=== PATIENT | male | born 1970 | race Caucasian/White ===

== ENCOUNTER 2016-08-26 05:50 | Inpatient (IN) ==
[2016-08-12 11:05] LABS: Basophils # 0.1 10*3/uL (0.0-0.2); Basophils % 0.7 % (0.0-0.8); Eosinophils # 0.6 10*3/uL (0.0-0.87); Eosinophils % 6.8 % (0.00-10.9); Hematocrit 41.9 VOL% (42.0-52.0); Hemoglobin 13.9 GM/DL (14.0-18.0); Immature Granulocytes % 0.9 %; Immature Granulocytes Absolute 0.07 #; Lymphocytes # 2.1 10*3/uL (1.4-4.0); Lymphocytes % 26.6 % (21.2-54.2); Mean Corpuscular HGB Conc 33.2 GM/DL (32-36); Mean Corpuscular Hemoglobin 27 PG (27-34); Mean Corpuscular Volume 80.7 FL (87-102); Mean Platelet Volume 8.4 FL (9.6-12.0); Monocytes # 0.5 10*3/uL (0.11-0.8); Monocytes % 6.5 % (1.7-12.7); Neutrophils # 4.7 10*3/uL (1.4-7.4); Neutrophils % 58.5 % (38.7-73.9); Platelet Count 400 T/CUMM (130-400); Red Blood Count 5.19 MC/CUMM (3.8-5.5); Red Cell Distribution Width 15.9 % (9.3-17.3)
--- NOTE | 2016-08-12 11:06 | EKG Report ---
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
[2016-08-12 11:11] LABS: Apearance,Urine CLOUDY (Clear); Bilirubin,Urine Negative (Negative); Blood, Urine Small mg/dL (Negative); Glucose,Urine (UA) Negative (Negative); Ketones,Urine Negative (Negative); Nitrite,Urine Negative (Negative); Protein,Urine Negative; RBC,Urine 22 /HPF (0-4); Sperm,Urine Many /HPF (Negative); Urine Color Yellow (Yellow); Urine Specific Gravity 1.009 (1.001-1.035); Urine Urobilinogen < 2.0 EU/DL (0.2-1.0); WBC,Urine 3 /HPF (0-6)
[2016-08-12 11:18] LABS: PT Patient Result 10.3 SECS
[2016-08-12 11:46] LABS: Albumin 4.2 G/DL (3.4-5.0); Bilirubin,Total 2.2 MG/DL (0.2-1.0); Calcium 10.3 MG/DL (8.5-10.1); Potassium 4.2 MMOL/L (3.5-5.1); Total Protein 8.2 G/DL (6.4-8.3)
--- NOTE | 2016-08-12 13:37 | XRay Report ---
XR chest 2V Date: 08/12/2016 10:44 AM History: Respiratory preoperative evaluation Comparison: 05/11/2016 Technique: PA and lateral chest Findings: The heart is normal in size. The lungs are overexpanded. Minimal atelectasis at the left lung base. Stable mediastinum and osseous structures. Prior cholecystectomy. Impression: COPD with minimal scarring. Minimal atelectasis at left lung base. PROCEDURE INTERPRETED AT [facility] DEPARTMENT OF RADIOLOGY Final Report Signed by: Dr. Reny Marcos
[2016-08-26] MEDS ORDERED: TRANEXAMIC ACID 1,000 MG/10 ML VIAL IV ONE (06:00)
[2016-08-26] MEDS ORDERED: DIAZEPAM 5 MG TABLET PO ONE (06:28)
[2016-08-26] MEDS ORDERED: FAMOTIDINE 20 MG TABLET PO ONE (06:28)
[2016-08-26] MEDS ORDERED: SODIUM CHLORIDE 0.9% 100 ML IV ONE (06:29)
[2016-08-26] MEDS ORDERED: VANCOMYCIN 1,000 MG VIAL ONE (06:29)
[2016-08-26] MEDS ORDERED: ceFAZolin 1,000 MG VIAL ONE (06:29)
[2016-08-26] MEDS ORDERED: LACTATED RINGERS 1,000 ML IV SCH (06:30)
[2016-08-26] MEDS ORDERED: methylPREDNISolone SOD SUC 125 MG/2 ML VIAL ONE (06:45)
[2016-08-26] MEDS ORDERED: BUPIVACAINE 0.5% 50 ML VIAL ONE (06:45)
[2016-08-26] MEDS ORDERED: MORPHINE 10 MG/1 ML VIAL ONE (06:45)
[2016-08-26] MEDS ORDERED: EPINEPHrine 1 MG/ML VIAL ONE (06:45)
[2016-08-26] MEDS ORDERED: VANCOMYCIN INJ 1,000 MG in SODIUM CHLORIDE 0.9% 250 ML IV ONE (07:00)
--- NOTE | 2016-08-26 07:09 | History and Physical Update ---
History and Physical Update - History and Physical H&P was reviewed, the patient examined and there: are no changes in the patients condition since last H&P was completed. - Dictation Physical: refer to scanned H&P
[2016-08-26] MEDS ORDERED: LIDOCAINE 2% 5 ML VIAL ONE (07:11)
[2016-08-26] MEDS ORDERED: ONDANSETRON 4 MG/2 ML VIAL IV PRN ×3 (07:31→09:45)
[2016-08-26] MEDS ORDERED: HYDROmorphone 2 MG/1 ML VIAL IV PRN ×2 (07:31→09:45)
[2016-08-26] MEDS ORDERED: MAGNESIUM HYDROXIDE SUSP 30 ML UDCUP PO PRN (09:18)
[2016-08-26] MEDS ORDERED: MORPHINE 2 MG/1 ML SYRINGE IV PRN (09:18)
[2016-08-26] MEDS ORDERED: diphenhydrAMINE CAP 25 MG CAPSULE PO PRN (09:18)
[2016-08-26] MEDS ORDERED: FLUTICASONE 50 MCG NASAL SPRAY 16 GM BOTTLE BOTH NARES PRN (09:18)
[2016-08-26] MEDS ORDERED: ZALEPLON 5 MG CAPSULE PO PRN (09:18)
[2016-08-26] MEDS: LACTATED RINGERS 1,000 ML IV SCH ×2 (09:30→10:04)
[2016-08-26] MEDS ORDERED: KETAMINE 500 MG/10 ML VIAL ONE (09:43)
[2016-08-26] MEDS ORDERED: SODIUM CHLORIDE 0.9% 250 ML IV ONE (09:43)
[2016-08-26] MEDS ORDERED: MIDAZOLAM 2 MG/2 ML VIAL ONE (09:43)
--- NOTE | 2016-08-26 09:56 | XRay Report ---
XR hip 1V LT Indication: Left hip pain. Comparison: None. Technique: AP and lateral images of the left hip were submitted. Findings: Findings compatible with recent left hip arthroplasty. No fractures of the proximal femur or left hemipelvis are present. Impression: 1. Findings compatible with recent left hip arthroplasty. 08/26/2016 9:53 AM PROCEDURE INTERPRETED AT [facility] DEPARTMENT OF RADIOLOGY Final Report Signed by: Dr. Greg Sorensen
[2016-08-26] MEDS: KETOROLAC 30 MG/1 ML VIAL IV SCH ×3 (10:03→21:52)
[2016-08-26] MEDS: ACETAMINOPHEN 500 MG TABLET PO SCH ×2 (14:59→21:00)
--- NOTE | 2016-08-26 17:19 | Orthopedic Progress Note ---
Assessment and Plan (1) Status post left hip replacement Status: Acute Assessment and plan: Routine antibiotics DVT prophylaxis Continue therapy tomorrow Possible discharge home tomorrow Current Visit: Yes Orthopedics - Subjective Interval history: Patient complains of some numbness in his buttock area. He is already ambulated in the hallway this afternoon with physical therapy. On exam his dressings clean and dry, Hemovac is in place. Sensation is intact to light touch throughout the left foot, he can dorsiflex and plantarflex the foot and toes. Exam - Constitutional Vitals: Period Temp Pulse Resp BP Sys/Echevarria Pulse Ox Last 24 Hr 97.1 F-98.1 F 83-101 14-20 92-116/54-76 97-100 Results - Labs CBC & BMP: 08/12/16 10:54 08/12/16 10:54
[2016-08-26] MEDS: busPIRone 15 MG TABLET PO SCH (21:00)
[2016-08-26] MEDS: DOCUSATE SODIUM 100 MG CAPSULE PO SCH (21:00)
[2016-08-26] MEDS: PANTOPRAZOLE 40 MG TABLET PO SCH (21:00)
[2016-08-26] MEDS: DEXTROSE 5% NACL 0.45% 1,000 ML IV SCH (21:02)
[2016-08-27] MEDS: DEXTROSE 5% NACL 0.45% 1,000 ML IV SCH ×2 (00:06→08:30)
[2016-08-27] MEDS: ACETAMINOPHEN 500 MG TABLET PO SCH ×2 (02:08→09:30)
[2016-08-27] MEDS: KETOROLAC 30 MG/1 ML VIAL IV SCH (04:14)
[2016-08-27] MEDS ORDERED: ENOXAPARIN 40 MG/0.4 ML SYRINGE SUBCUT SCH (06:00)
[2016-08-27 06:58] LABS: Basophils % 0.3 % (0.0-0.8); Eosinophils # 0.1 10*3/uL (0.0-0.87); Eosinophils % 0.9 % (0.00-10.9); Hematocrit 26.2 VOL% (42.0-52.0); Immature Granulocytes % 0.6 %; Immature Granulocytes Absolute 0.07 #; Lymphocytes # 1.7 10*3/uL (1.4-4.0); Lymphocytes % 13.8 % (21.2-54.2); Mean Corpuscular HGB Conc 34.4 GM/DL (32-36); Mean Corpuscular Hemoglobin 28 PG (27-34); Mean Corpuscular Volume 81.6 FL (87-102); Mean Platelet Volume 9.1 FL (9.6-12.0); Monocytes # 1.3 10*3/uL (0.11-0.8); Monocytes % 10.9 % (1.7-12.7); Neutrophils # 8.8 10*3/uL (1.4-7.4); Neutrophils % 73.5 % (38.7-73.9); Platelet Count 285 T/CUMM (130-400); Red Blood Count 3.21 MC/CUMM (3.8-5.5); Red Cell Distribution Width 15.9 % (9.3-17.3)
--- NOTE | 2016-08-27 07:07 | Discharge Summary ---
Hospital Course - Hospital Course Hospital Course: 46-year-old male admitted to hospital following left total hip arthroplasty. He tolerated the procedure well was transferred to the floor in stable condition postoperatively. He received routine antibiotics and thromboprophylaxis. He did very well with physical therapy and was discharged on postoperative day #1. At the time of discharge discharge his wound was clean dry and is neurovascularly intact. Diagnosis - Discharge Diagnosis (1) Status post left hip replacement Status: Acute Specialty Discharge - Follow Up or Referrals Follow up with: Ravinder Candelario MD [Physician] - (3-4 weeks) Discharge Plan - Discharge Data Disposition: Home Health Service Condition at Discharge: Stable Discharge Diet: advance to your usual diet Activity: ambulate only with your walker Hygiene: may shower Weight Bearing at Discharge: weight bear as tolerated Driving: not until seen by doctor Contact your physician if you experience:: fever over 101, Difficulty voiding, Redness or swelling, Nausea/Vomiting, Shortness of breath, Bleeding, pain uncontrolled by pain medications Wound / Dressing Care Instructions: keep silver island dressing in place until Wednesday, then change daily. OK to shower, no tub soaks. Eileen out 09/07/2016 - Discharge Medications New Aspirin EC Tab 325 mg PO DAILY #30 tablet HYDROcodone/ACETAMIN 7.5-325 [Vulcan 7.5-325] 1 - 2 tablet PO Q4H PRN #60 tablet PRN Reason: Pain Moderate (4-7) Acetaminophen Tab [Tylenol Tab] 650 mg PO Q6H PRN #0 tablet PRN Reason: Pain Mild (1-3) Continue busPIRone [Buspar] 15 mg PO BID Atomoxetine HCl [Strattera] 40 mg PO DAILY Mv, Min #36/Iron,Carbonyl/FA [Geritol Complete Tablet] 1 each PO DAILY Omeprazole [Prilosec] 20 mg PO BID Fluticasone 50 Mcg Nasal [place] [Flonase Nasal [place]] 2 spray BOTH NARES DAILY PRN PRN Reason: Congestion Triamterene/Hctz 37.5-25 Tab [Maxzide 37.5-25] 1 tablet PO DAILY - Follow Up or Referral Follow Up: Ravinder Candelario MD [Physician] - (3-4 weeks) - Forms/Instructions Additional Discharge Instructions: hip precautions Exam - Constitutional Vitals: Period Temp Pulse Resp BP Sys/Echevarria Pulse Ox Last 24 Hr 97.1 F-97.8 F 62-101 14-20 90-112/52-72 96-100 Discharge Results Labs on day of discharge: Labs from last 24 hours 08/27/16 08/26/16 06:26 06:09 WBC 12.0 RBC 3.21 L Hgb 9.0 L Hct 26.2 L MCV 81.6 L MCH 28 MCHC 34.4 RDW 15.9 Plt Count 285 MPV 9.1 L Neut % (Auto) 73.5 Lymph % (Auto) 13.8 L [place] % (Auto) 10.9 Eos % (Auto) 0.9 Baso % (Auto) 0.3 Neut # (Auto) 8.8 H Lymph # (Auto) 1.7 [place] # (Auto) 1.3 H Eos # (Auto) 0.1 Baso # (Auto) 0.0 Immature Gran % 0.6 Nucleated RBC % 0.0 Immature Gran # 0.07 Nucleated RBCs # 0.00 Blood Type B POSITIVE Antibody Screen Negative DS: Provider Date of admission: 08/26/16 05:50 Primary care physician: Yamil Patel DO Attending physician on admission: Ravinder Candelario MD Consults: 08/26/16 09:18 Consult to Case Mgmt/Social Srvs [CONS] Routine Reason for Case Mgmt/Social Srvs: Rehab Home Health Equipment Consult Comment: Bedside Commode, CPM, Walker Consult to Occupational Therapy [CONS] Routine Reason for Occupational Therapy: Evaluate and Treat Start Therapy: Today Consult Comment: ADL's Consult to Physical Therapy [CONS] Routine Reason for Physical Therapy: Evaluate and Treat Gait Training Start Therapy: Today Consult Comment: wbat 08/26/16 10:11 Consult to Pharmacy [CONS] Routine Reason for Pharmacy Consult: Adjust Meds Renal Funct 08/26/16 11:16 Consult to Pastoral Services [CONS] Routine Comment: Pastoral Screen: Request Suction Operator Visit Pastoral Screen Source of Request: Patient Discharging clinician: Ravinder Candelario MD
[2016-08-27] MEDS ORDERED: TRIAMTERENE/HCTZ 37.5-25 MG TABLET PO SCH (09:00)
[2016-08-27] MEDS ORDERED: MULTIVITAMIN (CENTRUM) TABLET PO SCH (09:00)
[2016-08-27] MEDS ORDERED: STRATTERA PO SCH (09:00)
[2016-08-27] MEDS ORDERED: ACETAMINOPHEN 325 MG TABLET PO PRN (09:19)
[2016-08-27] MEDS: busPIRone 15 MG TABLET PO SCH (09:30)
[2016-08-27] MEDS: DOCUSATE SODIUM 100 MG CAPSULE PO SCH (09:30)
[2016-08-27] MEDS: PANTOPRAZOLE 40 MG TABLET PO SCH (09:30)
--- NOTE | 2016-08-27 10:49 | Pathology Report from [facility] ---
ACCESSION # : [id number] PATIENT NAME : Lita Singh ORDERING DR : Ravinder Candelario MD CLINICAL HX: Left hip osteoarthritis POST-OP DX: Same SPECIMEN INFO: Left hip bone and tissue GROSS DESCRIPTION: The specimen is received in formalin labeled with the patient 's name Lita Singh is a femoral head measuring 5.3 x 5.2 x 5.7 cm. The articular surfaces are degenerative with no bony eburnation seen. The fracture is smooth with some softening appreciated. Received in the specimen container separately are fragments of bone and soft tissue measuring 11.0 x 4.5 cm. Worm Picker sections are submitted in one cassette following decalcification. DIAGNOSIS FOR LITA SINGH: LEFT HIP BONE & TISSUE, TOTAL REPLACEMENT: Osteoarthritis. SERVICE DATE: 08/26/2016 REPORT DATE: 08/27/2016 PATHOLOGIST: Rafa Hardin M.D. MTDLos
[2016-08-27 17:16] VITALS: BP 110/62
== END 2016-08-27 11:15 | disposition home health service (06) | DRG 470 ==
LOC: N.SDSINP 05:50 → N.3E 09:55
PROVIDERS: ADMIT Orthopaedic Surgery; ATTEND Orthopaedic Surgery

== ENCOUNTER 2016-11-03 19:50 | Inpatient (IN) ==
[2016-11-03] MEDS ORDERED: LACTATED RINGERS 2,000 ML IV ONE (20:19)
[2016-11-03] MEDS ORDERED: HYDROmorphone 2 MG/1 ML VIAL IV STA (20:19)
[2016-11-03] MEDS ORDERED: ONDANSETRON 4 MG/2 ML VIAL IV STA (20:19)
[2016-11-03] MEDS ORDERED: ONDANSETRON 4 MG/2 ML VIAL ONE (20:30)
[2016-11-03] MEDS ORDERED: HYDROmorphone 2 MG/1 ML VIAL ONE (20:31)
[2016-11-03 20:33] LABS: Basophils # 0.1 10*3/uL (0.0-0.2); Basophils % 0.4 % (0.0-0.8); Eosinophils # 0.4 10*3/uL (0.0-0.87); Eosinophils % 2.7 % (0.00-10.9); Hematocrit 38.5 VOL% (42.0-52.0); Hemoglobin 13.6 GM/DL (14.0-18.0); Immature Granulocytes % 0.4 %; Immature Granulocytes Absolute 0.06 #; Lymphocytes # 2.4 10*3/uL (1.4-4.0); Lymphocytes % 14.9 % (21.2-54.2); Mean Corpuscular HGB Conc 35.3 GM/DL (32-36); Mean Corpuscular Hemoglobin 28 PG (27-34); Mean Corpuscular Volume 78.4 FL (87-102); Mean Platelet Volume 8.7 FL (9.6-12.0); Monocytes # 1.1 10*3/uL (0.11-0.8); Monocytes % 7.1 % (1.7-12.7); Neutrophils # 11.8 10*3/uL (1.4-7.4); Neutrophils % 74.5 % (38.7-73.9); Platelet Count 414 T/CUMM (130-400); Red Blood Count 4.91 MC/CUMM (3.8-5.5); Red Cell Distribution Width 14.5 % (9.3-17.3); White Blood Count 15.8 T/CUMM (4-12)
[2016-11-03 20:53] LABS: Albumin 4.2 G/DL (3.4-5.0); Bilirubin,Total 2.5 MG/DL (0.2-1.0); Calcium 10.3 MG/DL (8.5-10.1); Osmolality,Calculated 268.2 MOS/KG (273-304); Total Protein 7.6 G/DL (6.4-8.3)
[2016-11-03 21:34] LABS: Lactic Acid 1.4 MMOL/L (0.4-2.0)
--- NOTE | 2016-11-03 23:01 | CT Report ---
CT abdomen pelvis w con Indication: Bowel obstruction. CT ABDOMEN AND PELVIS WITH CONTRAST DLP: 537 mGy*cm. One or more of the following dose reduction techniques was used: Automated exposure control, adjustment of the mA and/or kV according the patient size, or use of iterative reconstruction techniques. Comparison: 01/19/2060 Technique: Axial CT images of the abdomen and pelvis were obtained with IV contrast; Omnipaque 350, 100 cc. Oral contrast was administered. Abdomen: Stomach contains oral contrast and is distended. Small bowel dilatation is present throughout the study throughout. I see no: Except for a small rectal remnant which has previously had an anastomosis. Small amount of ascites is in the right lower quadrant. Several omental and/or mesenteric implants are present, similar in appearance to prior examination with wispy areas of fat stranding surrounding unaffected fat lobules, largest 26 mm anterior mid abdomen at the approximate level of the umbilicus, previously more to the left measuring 29 mm. Heart is minimally enlarged. Markedly coarsened interstitial markings of the lung bases noted, without focal infiltrate. Liver, spleen, pancreas, adrenal glands and kidneys are unremarkable. No aneurysmal change of the aorta. Pelvis: Right ZURDO is again noted. Patient now has a left ZURDO. Beam hardening artifact in the pelvis is severe and the bladder and prostate are almost completely obscured. The right lower quadrant ileostomy has been taken down. Transition point for the bowel obstruction is present within the right pelvis. Prior rectal anastomosis noted. Trace amount of free fluid in pelvis noted. No new bone lesions. Impression: 1. Bowel obstruction with a transition point in the right pelvis. The transition point appears to be related to a small bowel to rectal anastomosis following takedown of prior right lower quadrant ileostomy. Status post total colectomy. 2. Scattered mesenteric and omental implants are present, similar to the previous examination, continuing to demonstrate a very nonspecific wispy quality of fat stranding encasing normal-appearing fat, as opposed to actual soft tissue masses. Is there history of neoplasm? 3. New left ZURDO. Old right ZURDO. 4. Significantly coarsened interstitial markings of the lung bases. PROCEDURE INTERPRETED AT [facility] DEPARTMENT OF RADIOLOGY Final Report Signed by: Saurabh Mckeon M.D.
[2016-11-03] MEDS ORDERED: metroNIDAZOLE INJ 500 MG in PREMIX 1 EACH IV STA (23:15)
[2016-11-03] MEDS ORDERED: CIPROFLOXACIN INJ 400 MG in PREMIX 1 EACH IV STA (23:15)
--- NOTE | 2016-11-03 23:18 | Emergency Department Note ---
Mary Paige Hilary, am scribing for, and in the presence of, Santo Campos MD 20:20 . Andres Paige Hans, MD, personally performed the services described in this documentation, ascribed by Buffy Hernandez in my presence, and it is both accurate and complete 318 . Arrival - Arrival Chief Complaint: Abdominal / Flank Pain Stated Complaint: STOMACH PAIN/VOMITING ED Nursing Triage Note: C/O ABDOMINAL PAIN WITH ONSET TWO DAYS AGO. 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 PT STATES HE HAD A COLON RESECTION IN MAY 2016. Mode of Arrival: Ambulatory Limitations: No Limitations Source: Patient, RN Notes Reviewed Time Seen by Provider: 11/03/16 20:11 - History of Present Illness HPI Narrative: Pt is a 46 y/o male presenting to the ED with c/o abdominal pain which onset 2 days ago. Pt confirms abdominal pain, diarrhea, nausea and vomiting but denies blood in stool or fever. Pt has a PMHx of bowel obstruction, ulcerative colitis , Tanner syndrome, GERD, Colon resection MAY 2016. No other complaints or problems stated in the ED. Onset (ago): day(s) Allergies/Adverse Reactions: Allergies Allergy/AdvReac Type Severity Reaction Status Date / Time aspirin AdvReac Gastrointestinal Verified 08/26/16 06:25 Upset Home Medications: Home Medications Medication Instructions Recorded Confirmed Type busPIRone [Buspar] 15 mg PO BID 01/18/15 11/03/16 History Atomoxetine HCl [Strattera] 10 mg PO DAILY 07/04/15 11/03/16 History Omeprazole [Prilosec] 20 mg PO BID 02/27/16 11/03/16 History Triamterene/Hctz 37.5-25 Tab 1 tablet PO DAILY 08/12/16 11/03/16 History [Maxzide 37.5-25] Review of System - Review of System 12 point system: reviewed and no additional remarkable complaints except as stated - Review of System Constitutional: Absent: fever Gastrointestinal: Present: abdominal pain, nausea, vomiting, diarrhea Medical,Surgical,& Family Hx - Medical History Cardio: No history of: Aneurysm, Cardiac Dysrhythmia, Cerebrovascular Disease, Congenital Heart Disease, CHF, CAD, Hypertension, DE, Pacemaker, PVD, Valvular Heart Disease, Cardiovascular Problems Psychological: History of: Anxiety Disorders, ADHD No history of: Behavior Problems, Bipolar Disorder, Depression, Previous Suicide Attempt, Psychiatric/Substance Abuse Tx, Schizophrenia, Violent Behavior , Psychiatric Problems Neurology: No history of: Brain Aneurysm, Cerebral Hemorrhage, Cerebrovascular Accident , Cerebral Palsy, Dementia, Migraine, Multiple Sclerosis, Parkinson's Disease, Peripheral Neuropathy, Seizures, TIA, Vertigo, Neurologocal Cancer HEENT: History of: Ear Problem ([place]), Eye Problem (wears glasses), Dental Problems (upper plate), HEENT Problems (mucus removed) No history of: Glaucoma, Oral Cancer Endocrine: No history of: Adrenal Disease, Diabetes Mellitus (IDDM), Diabetes Mellitus ( NIDDM), Dyslipidemia, Thyroid Disorder, Endocrine Cancer, Endocrine Problems Rheumatology: History of;: Gout No history of;: Fibromyalgia, Myasthenia Gravis, Psoriasis, Rheumatoid Arthritis, Sjogrens, Systemic Lupus Erythematosus, Rheumatological Problems Respiratory: No history of: Asthma, Bronchitis, COPD, Intubation, Obstructive Sleep Apnea , Pulmonary Embolism, Pulmonary Hypertension, Pneumonia, Lung Cancer Comment Only: Respiratory Problems (FLU VAC- YES; PNEU VAC- YES.) Renal: No history of: Renal (Kidney) Cancer, Dialysis, Renal Failure, Renal Problems Genitourinary: No history of: Bladder Problem, Kidney Stones, Prostate Problems, Recurring Urinary Tract Infections, Genitourinary Cancer, Problems Gastrointestinal: History of: Bowel Obstruction (x5), GERD, Ulcerative Colitis ( past hisory), GI Problems (Tanner Syndrome) No history of: Clostridium Difficile, Crohn's Disease, Diverticulitis/ Diverticulosis, Esophageal Varices, Gastrointestinal Bleed, Hemorrhoids, Hematochezia, Hepatitis, Liver Problems, Pancreatitis, Polyps, Gastrointestinal Cancer Musculoskeletal: No history of: Amputation, Back/Neck Problems, Degenerative Disk Disease, Herniated Disk, Osteoporosis, Musculoskeletal Cancer, Musculoskeletal Problems Hematology: No history of: Anemia, Blood Transfusion Reaction, Bleeding Problems, Clotting Problems, Sickle Cell Disease, Hematologic Cancer, Blood Disorders Other: No history of: Anesthesia Reactions, Anaphylaxis, Cancer, Eczema, HIV, Malignant Hyperthermia, MRSA, Vancomycin-Resistant Enterococci, Skin Problems, Miscellaneous Medical Problems - Surgical History Cardiac Surgeries: Patient Denies: Femoral-Popliteal Bypass Graft, Cardiac Catheterization, Carotid Endarterectomy, Internal Defibrillator, Vascular Access Devices Thoracic Surgeries: Patient denies;: Kidney (Renal Surgery), Lithotripsy, Nephrectomy, Organ Transplant, Lobectomy Neurologic Surgeries: Patient denies: Brain Aneurysm, Cerebral Hemorrhage, Neurologic Surgery HEENT Surgeries: Surgical HX of: Tonsilectomy & Adenoidectomy (tonsil) Patient denies: Carotid Endarterectomy, Eye Surgery, Thyroid Surgery Abdominal Surgeries: Surgical HX of: Abdominal Surgery (adhesion removal this month, rt ostomy. colon surgery to removed obstruct.), Appendectomy, Cholecystectomy, Colonoscopy, EGD, Hernia Repair (umbilical hernia repair. OSTOMY REVERSAL 05/2016.) Patient denies: Gastric Bypass Surgery, Splenectomy Reproductive Surgeries: Patient denies;: Cystoscopy, Genitourinary Surgery, Prostate Surgery Orthopedic Surgeries: Surgical HX of;: Implanted Devices (ostomy rt abdominal wall), Total Hip Replacement (Right 12/20) Patient denies;: Orthopedic Surgery, Spinal Surgery, Total Knee Replacement - Family History Family History: Reports;: Family Anesthesia Reaction (mother nausea), Family Cancer (paternal grandmother), Family Diabetes (father), Family Heart Disease ( father), Family Stroke (mother tia father) Denies;: Family Hypertension, Family Psychiatric Problems - Social History Smoking Status: Never smoker Frequency of Alcohol Use: None Type of Drug Use: None Exam Vital Signs: Vital Signs Temperature 98.8 F 11/03/16 21:54 Pulse Rate 109 H 11/03/16 21:54 Respiratory Rate 20 11/03/16 21:54 Blood Pressure 117/88 11/03/16 21:54 O2 Sat by Pulse Oximetry 100 11/03/16 21:53 - General General appearance: alert, in no apparent distress - Head Head exam: Present: atraumatic, normocephalic - Eye Eye exam: Present: normal appearance, PERRL, EOMI - ENT ENT exam: Present: mucous membranes moist, TM's normal bilaterally. Absent: mucous membranes dry - Neck Neck exam: Present: full ROM, trachea midline. Absent: tenderness - Chest Chest inspection: Present: symmetric chest wall rise. Absent: tenderness - Respiratory Respiratory exam: Present: normal lung sounds bilaterally. Absent: respiratory distress - Cardiovascular Cardiovascular exam: Present: regular rate, normal rhythm, normal heart sounds. Absent: murmur, rubs, gallop - Abdominal Exam Abdominal exam: Present: soft, distention (minimally distented), hypoactive bowel sounds. Absent: tenderness - Extremities Exam Extremities exam: Present: full ROM. Absent: tenderness, calf tenderness - Back Exam Back exam: Present: full ROM. Absent: tenderness - Neurological Exam Neurological exam: Present: alert, oriented X3, CN II-XII intact. Absent: motor sensory deficit - Psychiatric Psychiatric exam: Present: normal affect, normal mood - Skin Skin exam: Present: warm, dry, intact, normal color. Absent: rash Course Course Narrative: This patient was evaluated with lab work as well as CT scan of abdomen and pelvis with p.o. and IV contrast. He appeared to have a bowel obstruction with transition point in the right pelvis near his J-pouch. He did not require any emergent surgical attention and his admission was discussed with Dr. Pride who is the surgeon customer operations intern. The patient will be admitted to the surgical service for NG tube decompression and IV fluids as well as IV antibiotics. His bilirubin will be repeated in the morning. Results - Labs CBC & BMP: 11/03/16 20:22 11/03/16 20:22 Lab Results: I have reviewed the patients labs Labs: Laboratory Tests 11/03/16 20:22 WBC 15.8 H RBC 4.91 Hgb 13.6 L Hct 38.5 L MCV 78.4 L Plt Count 414 H MPV 8.7 L Neut % (Auto) 74.5 H Lymph % (Auto) 14.9 L Neut # (Auto) 11.8 H Holt # (Auto) 1.1 H Laboratory Tests 11/03/16 20:22 Sodium 134 L Potassium 3.0 L Chloride 94 L Calculated Osmolality 268.2 L Calcium 10.3 H Total Bilirubin 2.50 H Alkaline Phosphatase 127 H Disposition Clinical Impression: Small bowel obstruction, Small bowel obstruction due to adhesions Case discussed with: patient, patient's family Disposition: Still a Patient Condition: Stable Time of Disposition: 23:18
[2016-11-03] MEDS ORDERED: metroNIDAZOLE 500 MG/100 ML PREMIX IV ONE (23:20)
[2016-11-04] MEDS ORDERED: PROMETHAZINE 25 MG/1 ML VIAL IM PRN (00:50)
[2016-11-04] MEDS ORDERED: ONDANSETRON 4 MG/2 ML VIAL IV PRN (00:50)
[2016-11-04] MEDS ORDERED: ACETAMINOPHEN 325 MG TABLET PO PRN (00:50)
[2016-11-04] MEDS ORDERED: HYDROmorphone 2 MG/1 ML VIAL IV PRN (00:50)
[2016-11-04] MEDS: LACTATED RINGERS 1,000 ML IV SCH ×2 (01:01→11:38)
[2016-11-04] MEDS: CIPROFLOXACIN INJ 400 MG in PREMIX 1 EACH IV SCH ×2 (01:03→12:23)
[2016-11-04] MEDS: metroNIDAZOLE INJ 500 MG in PREMIX 1 EACH IV SCH ×3 (01:07→16:26)
[2016-11-04] MEDS: POTASSIUM CHLORIDE RIDER 10 MEQ in PREMIX 1 EACH IV SCH ×3 (02:19→06:43)
--- NOTE | 2016-11-04 06:49 | XRay Report ---
XR abdomen 2V Indication: Abdominal pain. Comparison: Abdominal series 05/12/2016. CT abdomen and pelvis 11/03/2016. Technique: Flat and erect images of the abdomen were performed. Findings: Multiple small bowel loops are distended and contain multiple air-fluid levels. NG tube has been placed since comparison study which terminates within the gastric fundus. Surgical absence of the gallbladder is demonstrated. Impression: 1. Findings compatible with small bowel obstruction. 11/04/2016 6:46 AM PROCEDURE INTERPRETED AT [facility] DEPARTMENT OF RADIOLOGY Final Report Signed by: Dr. Greg Sorensen
--- NOTE | 2016-11-04 08:55 | General Surg History&Physical ---
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 We will continue with conservative management as the patient is currently reporting clinical improvement in his symptoms. Continue with bowel rest, NG tube, IV fluids, and monitoring his bowel function. Abdominal x-ray this morning revealed persistent evidence of small bowel obstruction. Patient also with elevated white count -possible enteritis component, we will continue Cipro and Flagyl. Repeat labs in the morning. Current Visit: Yes (2) Hypokalemia Status: Acute Assessment and plan: Patient is receiving KCl infusion. We will recheck his labs today. Current Visit: No (3) Anxiety Status: Acute Assessment and plan: Currently stable. Hold home meds while n.p.o. Current Visit: Yes (4) Hypertension Status: Acute Assessment and plan: Currently normotensive. Hold on meds while n.p.o. Current Visit: Yes (5) GERD (gastroesophageal reflux disease) Status: Acute Assessment and plan: PPI daily IV Current Visit: Yes (6) Prophylactic measure Status: Acute Assessment and plan: 1. DVT prophylaxis: SCDs and Lovenox 2. GI prophylaxis: PPI IV while n.p.o. then transition to oral when tolerating Current Visit: Yes History of Present Illness Chief complaint: Abd pain History of present illness: Mr. Singh is a 46 year old male with past medical history of ulcerative colitis status post colectomy and recurrent small bowel obstructions most of which were treated conservatively with operative intervention required in March 2015 who presented to the emergency department with progressive abdominal pain. He reports that he started having pain approximately 2 days ago which has worsened. He localizes the pain primarily to the lower abdomen associated with nausea but no vomiting. He did have a loose bowel movement yesterday approximately 5 PM with some relief of his pain, but his symptoms did persist. He has had no fever, chills, rigors. Home Medications Medication Instructions Recorded Confirmed Type busPIRone [Buspar] 15 mg PO BID 01/18/15 11/03/16 History Atomoxetine HCl [Strattera] 10 mg PO DAILY 07/04/15 11/03/16 History Omeprazole [Prilosec] 20 mg PO BID 02/27/16 11/03/16 History Triamterene/Hctz 37.5-25 Tab 1 tablet PO DAILY 08/12/16 11/03/16 History [Maxzide 37.5-25] Allergies Allergy/AdvReac Type Severity Reaction Status Date / Time aspirin AdvReac Gastrointestinal Verified 08/26/16 06:25 Upset Medical,Surgical,& Family Hx - Medical History Psychological: History of: Anxiety Disorders, ADHD HEENT: History of: Ear Problem (ione), Eye Problem (wears glasses), Dental Problems (upper plate) Rheumatology: History of;: Gout Respiratory: Comment Only: Respiratory Problems (FLU VAC- YES; PNEU VAC- YES.) Gastrointestinal: History of: Bowel Obstruction (recurrent; treated coservatively except 03/2015), GERD, Ulcerative Colitis (s/p colectomy total), GI Problems ([place] Syndrome) Other: History of: MRSA - Surgical History HEENT Surgeries: Surgical HX of: Tonsilectomy & Adenoidectomy (tonsil) Abdominal Surgeries: Surgical HX of: Abdominal Surgery (enterocolysis, rt ostomy. total colectomy), Appendectomy, Cholecystectomy, Colonoscopy, EGD, Hernia Repair (umbilical hernia repair. OSTOMY REVERSAL 05/2016.) Orthopedic Surgeries: Surgical HX of;: Total Hip Replacement (bilateral) Additional Surgical History: MRSA septicemia - Family History Family History: Reports;: Family Anesthesia Reaction (mother nausea), Family Cancer (paternal grandmother), Family Diabetes (father), Family Heart Disease ( father), Family Stroke (mother and father) Denies;: Family Hypertension, Family Psychiatric Problems - Social History Smoking Status: Never smoker Frequency of Alcohol Use: None Type of Drug Use: None Functional capacity: independent ambulation Exam - Constitutional Vitals: Period Temp Pulse Resp BP Sys/Echevarria Pulse Ox Last 24 Hr 97.7 F-98.8 F 66-109 17- 100-117/70-88 94-100 General appearance: no acute distress - Head Head exam: Present: normal inspection, normocephalic - ENT ENT exam: Present: other (NGT in place - bilious output) - Neck Neck exam: Present: trachea midline - Respiratory Respiratory exam: Present: clear to auscultation bilaterally - Cardiovascular Cardiovascular exam: Present: RRR - GI/Abdominal GI/Abdominal exam: Present: distended (slightly), tenderness (mild lower abd tenderness), other (Bowel sounds absent). Absent: guarding, Mac's sign, rebound - Extremities Exam Extremities exam: Absent: calf tenderness, edema - Neurological Exam Neurological exam: Present: alert, oriented X3 Speech: Present: normal - Skin Skin exam: Present: normal color, warm - Constitutional Constitutional: Absent: chills, fever(s), night sweats - EENT Nose, mouth and throat: Absent: dysphagia - Cardiovascular Cardiovascular: Absent: chest pain at rest, chest pain with activity, dyspnea on exertion, orthopnea, palpitations - Respiratory Respiratory: Absent: cough, wheezing - Gastrointestinal Gastrointestinal: Present: as per HPI - Genitourinary Genitourinary: Absent: dysuria, flank pain Hematologic/Lymphatic: Absent: easy bleeding, easy bruising Results - Labs CBC & BMP: 11/03/16 20:22 11/03/16 20:22 - Diagnostic Findings Procedure: Abdominal Flat/Erect: image reviewed by me, report reviewed by me, CT Abdomen and Pelvis: image reviewed by me, report reviewed by me
[2016-11-04 10:02] LABS: Basophils % 0.3 % (0.0-0.8); Eosinophils # 0.2 10*3/uL (0.0-0.87); Hematocrit 38.6 VOL% (42.0-52.0); Hemoglobin 13.8 GM/DL (14.0-18.0); Immature Granulocytes % 0.6 %; Immature Granulocytes Absolute 0.06 #; Lymphocytes # 1.3 10*3/uL (1.4-4.0); Lymphocytes % 12.1 % (21.2-54.2); Mean Corpuscular HGB Conc 35.8 GM/DL (32-36); Mean Corpuscular Hemoglobin 28 PG (27-34); Mean Corpuscular Volume 78.6 FL (87-102); Mean Platelet Volume 8.7 FL (9.6-12.0); Monocytes # 0.8 10*3/uL (0.11-0.8); Monocytes % 7.7 % (1.7-12.7); Neutrophils # 8.3 10*3/uL (1.4-7.4); Neutrophils % 77.3 % (38.7-73.9); Platelet Count 364 T/CUMM (130-400); Red Blood Count 4.91 MC/CUMM (3.8-5.5); Red Cell Distribution Width 14.6 % (9.3-17.3); White Blood Count 10.7 T/CUMM (4-12)
[2016-11-04 10:25] LABS: Calcium 10.1 MG/DL (8.5-10.1); Magnesium 1.7 MG/DL (1.8-2.4); Osmolality,Calculated 267.2 MOS/KG (273-304); Potassium 3.2 MMOL/L (3.5-5.1)
[2016-11-04] MEDS: PANTOPRAZOLE 40 MG VIAL IV SCH (11:38)
[2016-11-04] MEDS: POTASSIUM CHLORIDE RIDER 10 MEQ in PREMIX 1 EACH IV PRN ×2 (15:15→20:00)
[2016-11-04] MEDS: DEXT 5% NACL 0.45% KCL 20 MEQ 20 MEQ/1,000 ML BAG IV SCH (15:15)
[2016-11-04] MEDS: ENOXAPARIN 40 MG/0.4 ML SYRINGE SUBCUT SCH (17:41)
[2016-11-05] MEDS: metroNIDAZOLE INJ 500 MG in PREMIX 1 EACH IV SCH ×3 (00:01→16:20)
[2016-11-05] MEDS: POTASSIUM CHLORIDE RIDER 10 MEQ in PREMIX 1 EACH IV PRN ×2 (00:02→04:06)
[2016-11-05] MEDS: CIPROFLOXACIN INJ 400 MG in PREMIX 1 EACH IV SCH ×2 (01:01→12:18)
[2016-11-05] MEDS: DEXT 5% NACL 0.45% KCL 20 MEQ 20 MEQ/1,000 ML BAG IV SCH ×4 (02:30→22:15)
[2016-11-05 05:00] LABS: Basophils % 0.4 % (0.0-0.8); Eosinophils # 0.2 10*3/uL (0.0-0.87); Hematocrit 36.8 VOL% (42.0-52.0); Hemoglobin 13.1 GM/DL (14.0-18.0); Immature Granulocytes % 0.4 %; Immature Granulocytes Absolute 0.03 #; Lymphocytes # 1.3 10*3/uL (1.4-4.0); Lymphocytes % 16.6 % (21.2-54.2); Mean Corpuscular HGB Conc 35.6 GM/DL (32-36); Mean Corpuscular Hemoglobin 28 PG (27-34); Mean Corpuscular Volume 79.1 FL (87-102); Mean Platelet Volume 8.8 FL (9.6-12.0); Monocytes # 0.7 10*3/uL (0.11-0.8); Monocytes % 9.6 % (1.7-12.7); Neutrophils # 5.4 10*3/uL (1.4-7.4); Platelet Count 341 T/CUMM (130-400); Red Blood Count 4.65 MC/CUMM (3.8-5.5); Red Cell Distribution Width 14.6 % (9.3-17.3); White Blood Count 7.7 T/CUMM (4-12)
[2016-11-05 05:26] LABS: Albumin 3.2 G/DL (3.4-5.0); Bilirubin,Total 2.7 MG/DL (0.2-1.0); Osmolality,Calculated 269.1 MOS/KG (273-304); Potassium 3.4 MMOL/L (3.5-5.1)
[2016-11-05] MEDS: PANTOPRAZOLE 40 MG VIAL IV SCH (09:29)
--- NOTE | 2016-11-05 10:51 | General Surgery Progress Note ---
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 We will continue with conservative management as the patient is currently reporting clinical improvement in his symptoms. Continue with bowel rest, NG tube, IV fluids, and monitoring his bowel function - pt with 3 loose BM overnight. Continue Cipro and Flagyl - leukocytosis resolved. Repeat labs in the morning. Current Visit: Yes (2) Hypokalemia Status: Acute Assessment and plan: Improved. K+ protocol in place. Current Visit: No (3) Anxiety Status: Acute Assessment and plan: Currently stable. Hold home meds while n.p.o. Current Visit: Yes (4) Hypertension Status: Acute Assessment and plan: Currently normotensive. Hold on meds while n.p.o. Current Visit: Yes (5) GERD (gastroesophageal reflux disease) Status: Acute Assessment and plan: PPI daily IV Current Visit: Yes (6) Prophylactic measure Status: Acute Assessment and plan: 1. DVT prophylaxis: SCDs and Lovenox 2. GI prophylaxis: PPI IV while n.p.o. then transition to oral when tolerating Current Visit: Yes Subjective Patient reports: Present: feels better, pain is less, bowel movement, afebrile ( NGT in place. Pt family member reports at one point NGT cannister full - 300cc recorded yesterday adn 300cc overnight. By report, NGT output is less - remains bilious) Exam - Constitutional Vitals: Period Temp Pulse Resp BP Sys/Echevarria Pulse Ox Last 24 Hr 96.4 F-98.8 F 73-97 16-20 99-117/62-72 90-99 General appearance: no acute distress - Head Head exam: Present: normal inspection - Eye Eye exam: Absent: conjunctival injection, scleral icterus - ENT ENT exam: Present: other (NGT in place - bilious output) - Neck Neck exam: Present: trachea midline - Respiratory Respiratory exam: Present: clear to auscultation bilaterally - Cardiovascular Cardiovascular exam: Present: RRR - GI/Abdominal GI/Abdominal exam: Present: tenderness (minimal RLQ tenderness), soft. Absent: distended - Extremities Exam Extremities exam: Absent: calf tenderness, edema - Neurological Exam Neurological exam: Present: alert, oriented X3 - Skin Skin exam: Present: warm. Absent: rash Results - Labs CBC & BMP: 11/05/16 04:32 11/05/16 04:32 Labs: Bili slighlty increased 2.7
[2016-11-05] MEDS: ENOXAPARIN 40 MG/0.4 ML SYRINGE SUBCUT SCH (16:20)
[2016-11-06] MEDS: metroNIDAZOLE INJ 500 MG in PREMIX 1 EACH IV SCH ×3 (01:20→15:35)
[2016-11-06] MEDS: CIPROFLOXACIN INJ 400 MG in PREMIX 1 EACH IV SCH ×2 (02:25→14:16)
[2016-11-06 06:25] LABS: Basophils % 0.6 % (0.0-0.8); Eosinophils # 0.3 10*3/uL (0.0-0.87); Eosinophils % 5.9 % (0.00-10.9); Hematocrit 33.4 VOL% (42.0-52.0); Hemoglobin 11.6 GM/DL (14.0-18.0); Immature Granulocytes % 0.2 %; Immature Granulocytes Absolute 0.01 #; Lymphocytes # 1.3 10*3/uL (1.4-4.0); Lymphocytes % 25.4 % (21.2-54.2); Mean Corpuscular HGB Conc 34.7 GM/DL (32-36); Mean Corpuscular Hemoglobin 28 PG (27-34); Mean Corpuscular Volume 80.3 FL (87-102); Mean Platelet Volume 8.7 FL (9.6-12.0); Monocytes # 0.8 10*3/uL (0.11-0.8); Monocytes % 14.6 % (1.7-12.7); Neutrophils # 2.8 10*3/uL (1.4-7.4); Neutrophils % 53.3 % (38.7-73.9); Platelet Count 279 T/CUMM (130-400); Red Blood Count 4.16 MC/CUMM (3.8-5.5); Red Cell Distribution Width 14.6 % (9.3-17.3); White Blood Count 5.3 T/CUMM (4-12)
[2016-11-06 06:53] LABS: Albumin 3.1 G/DL (3.4-5.0); Bilirubin,Total 1.9 MG/DL (0.2-1.0); Calcium 8.8 MG/DL (8.5-10.1); Osmolality,Calculated 278.4 MOS/KG (273-304); Potassium 3.2 MMOL/L (3.5-5.1); Total Protein 5.7 G/DL (6.4-8.3)
[2016-11-06] MEDS: DEXT 5% NACL 0.45% KCL 20 MEQ 20 MEQ/1,000 ML BAG IV SCH ×4 (06:57→21:58)
[2016-11-06] MEDS: PANTOPRAZOLE 40 MG VIAL IV SCH (08:50)
[2016-11-06] MEDS: POTASSIUM CHLORIDE RIDER 10 MEQ in PREMIX 1 EACH IV PRN ×4 (09:49→23:53)
--- NOTE | 2016-11-06 12:24 | General Surgery Progress Note ---
Assessment and Plan (1) Small bowel obstruction due to adhesions Status: Acute Assessment and plan: Impression: Small bowel obstruction Plan: Clinically the patient appears much improved despite the liter output from his NG tube. He has good bowel sounds and his abdomen is benign. We will replace his potassium. We will clamp his NG tube today to see if he develops any nausea or vomiting. If not then he could probably begin advancing diet tomorrow. If for some reason he requires operative intervention the patient and his family have requested to be transferred back to [facility] with their primary surgeon. Current Visit: Yes Subjective Narrative: Patient is feeling well. States he had a normal bowel movement. NG tube output still fairly high at a liter. He denies drinking any fluids. He has no abdominal pain. Exam - Constitutional Vitals: Period Temp Pulse Resp BP Sys/Echevarria Pulse Ox Last 24 Hr 97.0 F-98.0 F 65-86 18-20 85-116/51-68 95-100 General appearance: no acute distress - Head Head exam: Present: normocephalic - ENT Mouth exam: Present: normal external inspection - Neck Neck exam: Present: normal inspection - Respiratory Respiratory exam: Present: clear to auscultation bilaterally - Cardiovascular Cardiovascular exam: Present: RRR - GI/Abdominal GI/Abdominal exam: Present: soft (Nontender nondistended. He has good bowel sounds.) - Back Exam Back exam: Present: normal inspection - Neurological Exam Neurological exam: Present: alert, oriented X3 Speech: Present: normal - Skin Skin exam: Present: normal color Results - Labs CBC & BMP: 11/06/16 06:14 11/06/16 06:14 Lab Results: I have reviewed the past 24 hour labs
[2016-11-06] MEDS: ENOXAPARIN 40 MG/0.4 ML SYRINGE SUBCUT SCH (17:07)
[2016-11-07] MEDS: CIPROFLOXACIN INJ 400 MG in PREMIX 1 EACH IV SCH ×2 (01:01→12:38)
[2016-11-07 03:14] LABS: Calcium 8.9 MG/DL (8.5-10.1); Osmolality,Calculated 280.1 MOS/KG (273-304); Potassium 3.6 MMOL/L (3.5-5.1)
[2016-11-07] MEDS: metroNIDAZOLE INJ 500 MG in PREMIX 1 EACH IV SCH ×3 (04:32→20:31)
[2016-11-07] MEDS: PANTOPRAZOLE 40 MG VIAL IV SCH (08:29)
[2016-11-07] MEDS: DEXT 5% NACL 0.45% KCL 20 MEQ 20 MEQ/1,000 ML BAG IV SCH ×3 (08:30→22:59)
--- NOTE | 2016-11-07 09:19 | Event Note ---
11/07/2016. Patient is stable somewhat better states he has had some small bowel movements. Bowel sounds are very distant though had a lot of activities but no distention. I wanted to keep his NG tube and let him start some liquids and be sure he did not want to get sick and throwing up but he was insistent on having the tube removed. We will go ahead and pulled the tube try him on some clear liquids and see how he basically does at this time. He understands if he gets sick and throwing up to like to go back down.
[2016-11-07] MEDS: ENOXAPARIN 40 MG/0.4 ML SYRINGE SUBCUT SCH (16:36)
[2016-11-08] MEDS: CIPROFLOXACIN INJ 400 MG in PREMIX 1 EACH IV SCH ×2 (01:30→12:00)
[2016-11-08] MEDS: metroNIDAZOLE INJ 500 MG in PREMIX 1 EACH IV SCH ×2 (03:59→11:57)
[2016-11-08 05:59] LABS: Basophils % 0.6 % (0.0-0.8); Eosinophils # 0.3 10*3/uL (0.0-0.87); Eosinophils % 6.3 % (0.00-10.9); Hematocrit 30.4 VOL% (42.0-52.0); Hemoglobin 10.5 GM/DL (14.0-18.0); Immature Granulocytes % 0.2 %; Immature Granulocytes Absolute 0.01 #; Lymphocytes # 1.5 10*3/uL (1.4-4.0); Lymphocytes % 31.5 % (21.2-54.2); Mean Corpuscular HGB Conc 34.5 GM/DL (32-36); Mean Corpuscular Hemoglobin 28 PG (27-34); Mean Corpuscular Volume 81.5 FL (87-102); Mean Platelet Volume 8.6 FL (9.6-12.0); Monocytes # 0.5 10*3/uL (0.11-0.8); Monocytes % 11.2 % (1.7-12.7); Neutrophils # 2.3 10*3/uL (1.4-7.4); Neutrophils % 50.2 % (38.7-73.9); Platelet Count 271 T/CUMM (130-400); Red Blood Count 3.73 MC/CUMM (3.8-5.5); Red Cell Distribution Width 14.9 % (9.3-17.3); White Blood Count 4.6 T/CUMM (4-12)
[2016-11-08 06:24] LABS: Calcium 8.8 MG/DL (8.5-10.1); Osmolality,Calculated 280.1 MOS/KG (273-304); Potassium 3.9 MMOL/L (3.5-5.1)
[2016-11-08] MEDS: DEXT 5% NACL 0.45% KCL 20 MEQ 20 MEQ/1,000 ML BAG IV SCH ×2 (07:54→16:45)
[2016-11-08] MEDS: PANTOPRAZOLE 40 MG VIAL IV SCH (08:01)
--- NOTE | 2016-11-08 10:35 | Event Note ---
11/08/2016. Patient is doing much better. NG tube is been out he has had no nausea vomiting is having bowel movements. His abdomen is flat and soft no tenderness or distention. Present. At this time I think we will go ahead and plan to let him have some solid food if he tolerates this well we could consider letting him go home for later follow-up.
[2016-11-08] MEDS: ENOXAPARIN 40 MG/0.4 ML SYRINGE SUBCUT SCH (16:50)
[2016-11-09 06:38] LABS: Calcium 8.3 MG/DL (8.5-10.1); Osmolality,Calculated 283.8 MOS/KG (273-304); Potassium 3.6 MMOL/L (3.5-5.1)
--- NOTE | 2016-11-09 10:09 | Discharge Summary ---
Hospital Course - Hospital Course Hospital Course: Patient is a 46-year-old male admitted with recurrent small bowel obstruction. He was treated conservatively with bowel rest, IV antibiotics and IV hydration. He responded appropriately with gradual decrease in his upper with NG tube. He tolerated a slow progression of diet without complication. At the time of discharge, he was tolerating activity and oral intake without difficulty; voiding without difficulty. Bowels were baseline function according to patient report. He was ultimately discharged home in good condition. Diagnosis - Discharge Diagnosis (1) Small bowel obstruction due to adhesions Status: Resolved (2) Hypokalemia Status: Resolved (3) Anxiety Status: Chronic (4) Hypertension Status: Chronic (5) GERD (gastroesophageal reflux disease) Status: Chronic Specialty Discharge - Follow Up or Referrals Follow up with: Alexsander Pride MD [Physician] - (as needed) Discharge Plan - Discharge Data Disposition: Disch To Home/Self Care Condition at Discharge: Stable Discharge Diet: advance to your usual diet Activity: resume usual activities as tolerated Hygiene: no restrictions Driving: no restrictions Contact your physician if you experience:: fever over 101, Difficulty voiding, Nausea/Vomiting, Shortness of breath, pain uncontrolled by pain medications - Discharge Medications Continue busPIRone [Buspar] 15 mg PO BID Atomoxetine HCl [Strattera] 10 mg PO DAILY Omeprazole [Prilosec] 20 mg PO BID Triamterene/Hctz 37.5-25 Tab [Maxzide 37.5-25] 1 tablet PO DAILY - Follow Up or Referral Follow Up: Alexsander Pride MD [Physician] - (as needed) - Forms/Instructions Instructions: Bowel Obstruction (DC) Exam - Constitutional Vitals: Period Temp Pulse Resp BP Sys/Echevarria Pulse Ox Last 24 Hr 96.9 F-98.8 F 64-83 18-18 95-109/48-70 94-100 General appearance: no acute distress - Head Head exam: Present: normal inspection, normocephalic - Eye Eye exam: Absent: conjunctival injection, scleral icterus - Respiratory Respiratory exam: Present: clear to auscultation bilaterally - Cardiovascular Cardiovascular exam: Present: regular rate and rhythm - GI/Abdominal GI/Abdominal exam: Present: normal bowel sounds, soft. Absent: distended, firm , guarding, tenderness, rebound - Extremities Exam Extremities exam: Absent: calf tenderness, edema - Neurological Exam Neurological exam: Present: alert, oriented X3 - Psychiatric Psychiatric exam: Present: normal affect, normal mood - Skin Skin exam: Present: normal color, warm Discharge Results Procedures and tests throughout hospitalization: None Labs on day of discharge: Labs from last 24 hours 11/09/16 05:02 Sodium 144 Potassium 3.6 Chloride 105 Carbon Dioxide 29 Anion Gap 13.6 BUN 6 L Creatinine 1.20 GFR Calculation 81 BUN/Creatinine Ratio 5.00 L Glucose 101 Calculated Osmolality 283.8 Calcium 8.3 L - Imaging and Cardiology Procedure: KUB x-ray: image reviewed by me, report reviewed by me, CT Abdomen and Pelvis: image reviewed by me, report reviewed by me DS: Provider Date of admission: 11/03/16 23:11 Primary care physician: Yamil Patel DO Attending physician on admission: Alexsander Pride MD Consults: None Discharging clinician: Tiffani Elam PA-C
[2016-11-09] MEDS: PANTOPRAZOLE 40 MG VIAL IV SCH (10:32)
[2016-11-09 11:26] VITALS: BP 111/68
== END 2016-11-09 14:00 | disposition home or self-care (01) | DRG 390 ==
LOC: N.ED 19:50 → N.EDINP 23:11 → N.3E 23:26
PROVIDERS: ADMIT Surgery; ATTEND Surgery

== ENCOUNTER 2016-12-06 21:01 | Inpatient (IN) ==
[2016-12-06] MEDS ORDERED: MORPHINE 2 MG/1 ML SYRINGE IV STA (23:10)
[2016-12-06] MEDS ORDERED: ONDANSETRON 4 MG/2 ML VIAL IV STA (23:10)
[2016-12-06] MEDS ORDERED: SODIUM CHLORIDE 0.9% 1,000 ML IV STA (23:10)
--- NOTE | 2016-12-06 23:16 | Emergency Department Note ---
Deandre Paige Emily, am scribing for, and in the presence of, Alvaro Paige MD 23:07. Royal Paige Andrew, MD, personally performed the services described in this documentation, ascribed by Kinga Carrera in my presence, and it is both accurate and complete 316 . Arrival - Arrival Chief Complaint: Abdominal / Flank Pain Stated Complaint: STOMACH PAINS ED Nursing Triage Note: C/C abd pain. Has had bile blockage in past. Mode of Arrival: Ambulatory Limitations: No Limitations Source: Patient, Significant other - History of Present Illness HPI Narrative: Pt is a 46 y/o male who came to ED with c/o abdomen pain that started earlier today. Pt notes having bile blockage in the past and states this sx feels the same way. Pt took magnesium citrate yesterday with some relief but reports pain returned today, worse. However, he notes still having flatulence but denies fever or vomiting. Pt sees Dr. Funk for GI issues such as cholecystectomy, colectomy, ulcerative colitis, SBO, and Gilbert's syndrome. Onset (ago): day(s) Consistency: constant Severity: moderate Severity scale (1-10): 5 Quality: aching Allergies/Adverse Reactions: Allergies Allergy/AdvReac Type Severity Reaction Status Date / Time No Known Allergies Allergy Verified 12/06/16 21:32 Home Medications: Home Medications Medication Instructions Recorded Confirmed Type busPIRone [Buspar] 15 mg PO BID 01/18/15 11/03/16 History Atomoxetine HCl [Strattera] 10 mg PO DAILY 07/04/15 11/03/16 History Omeprazole [Prilosec] 20 mg PO BID 02/27/16 11/03/16 History Triamterene/Hctz 37.5-25 Tab 1 tablet PO DAILY 08/12/16 11/03/16 History [Maxzide 37.5-25] HYDROcodone/ACETAMIN 5-325 [[place] 1 tablet PO Q6H PRN #10 tablet 12/02/16 Rx 5-325] Review of System - Review of System 12 point system: reviewed and no additional remarkable complaints except as stated - Review of System Constitutional: Absent: fever, weakness Gastrointestinal: Present: abdominal pain, constipation. Absent: nausea, vomiting, diarrhea Genitourinary male: Absent: dysuria Musculoskeletal: Absent: back pain Skin: Absent: rash Neurological: Absent: headache Medical,Surgical,& Family Hx - Medical History Cardio: No history of: Aneurysm, Cardiac Dysrhythmia, Cerebrovascular Disease, Congenital Heart Disease, CHF, CAD, Hypertension, [place], Pacemaker, PVD, Valvular Heart Disease, Cardiovascular Problems Psychological: History of: Anxiety Disorders, ADHD No history of: Behavior Problems, Bipolar Disorder, Depression, Previous Suicide Attempt, Psychiatric/Substance Abuse Tx, Schizophrenia, Violent Behavior , Psychiatric Problems Neurology: No history of: Brain Aneurysm, Cerebral Hemorrhage, Cerebrovascular Accident , Cerebral Palsy, Dementia, Migraine, Multiple Sclerosis, Parkinson's Disease, Peripheral Neuropathy, Seizures, TIA, Vertigo, Neurologocal Cancer HEENT: History of: Ear Problem (council), Eye Problem (wears glasses), Dental Problems (upper plate), HEENT Problems (mucus removed) No history of: Glaucoma, Oral Cancer Endocrine: No history of: Adrenal Disease, Diabetes Mellitus (IDDM), Diabetes Mellitus ( NIDDM), Dyslipidemia, Thyroid Disorder, Endocrine Cancer, Endocrine Problems Rheumatology: History of;: Gout No history of;: Fibromyalgia, Myasthenia Gravis, Psoriasis, Rheumatoid Arthritis, Sjogrens, Systemic Lupus Erythematosus, Rheumatological Problems Respiratory: No history of: Asthma, Bronchitis, COPD, Intubation, Obstructive Sleep Apnea , Pulmonary Embolism, Pulmonary Hypertension, Pneumonia, Lung Cancer Comment Only: Respiratory Problems (FLU VAC- YES; PNEU VAC- YES.) Renal: No history of: Renal (Kidney) Cancer, Dialysis, Renal Failure, Renal Problems Genitourinary: No history of: Bladder Problem, Kidney Stones, Prostate Problems, Recurring Urinary Tract Infections, Genitourinary Cancer, Problems Gastrointestinal: History of: Bowel Obstruction (recurrent; treated coservatively except 03/2015), GERD, Ulcerative Colitis (s/p colectomy total), GI Problems ([place] Syndrome) No history of: Clostridium Difficile, Crohn's Disease, Diverticulitis/ Diverticulosis, Esophageal Varices, Gastrointestinal Bleed, Hemorrhoids, Hematochezia, Hepatitis, Liver Problems, Pancreatitis, Polyps, Gastrointestinal Cancer Musculoskeletal: No history of: Amputation, Back/Neck Problems, Degenerative Disk Disease, Herniated Disk, Osteoporosis, Musculoskeletal Cancer, Musculoskeletal Problems Hematology: No history of: Anemia, Blood Transfusion Reaction, Bleeding Problems, Clotting Problems, Sickle Cell Disease, Hematologic Cancer, Blood Disorders Other: History of: MRSA No history of: Anesthesia Reactions, Anaphylaxis, Cancer, Eczema, HIV, Malignant Hyperthermia, Vancomycin-Resistant Enterococci, Skin Problems, Miscellaneous Medical Problems - Surgical History Cardiac Surgeries: Patient Denies: Femoral-Popliteal Bypass Graft, Cardiac Catheterization, Carotid Endarterectomy, Internal Defibrillator, Vascular Access Devices Thoracic Surgeries: Patient denies;: Kidney (Renal Surgery), Lithotripsy, Nephrectomy, Organ Transplant, Lobectomy Neurologic Surgeries: Patient denies: Brain Aneurysm, Cerebral Hemorrhage, Neurologic Surgery HEENT Surgeries: Surgical HX of: Tonsilectomy & Adenoidectomy (tonsil) Patient denies: Carotid Endarterectomy, Eye Surgery, Thyroid Surgery Abdominal Surgeries: Surgical HX of: Abdominal Surgery (enterocolysis, rt ostomy. total colectomy), Appendectomy, Cholecystectomy, Colonoscopy, EGD, Hernia Repair (umbilical hernia repair. OSTOMY REVERSAL 05/2016.) Patient denies: Gastric Bypass Surgery, Splenectomy Reproductive Surgeries: Patient denies;: Cystoscopy, Genitourinary Surgery, Prostate Surgery Orthopedic Surgeries: Surgical HX of;: Total Hip Replacement (bilateral) Patient denies;: Implanted Devices, Orthopedic Surgery, Spinal Surgery, Total Knee Replacement - Family History Family History: Reports;: Family Anesthesia Reaction (mother nausea), Family Cancer (paternal grandmother), Family Diabetes (father), Family Heart Disease ( father), Family Stroke (mother and father) Denies;: Family Hypertension, Family Psychiatric Problems - Social History Smoking Status: Never smoker Frequency of Alcohol Use: None Type of Drug Use: None Marital Status: Lives With:: Spouse Functional capacity: independent ambulation Exam Vital Signs: Vital Signs Temperature 97.8 F 12/06/16 21:28 Pulse Rate 118 H 12/06/16 21:28 Respiratory Rate 16 12/06/16 21:28 Blood Pressure 102/79 12/06/16 21:28 O2 Sat by Pulse Oximetry 98 12/06/16 21:28 - General General appearance: alert, in no apparent distress - Head Head exam: Present: atraumatic, normocephalic - Eye Eye exam: Present: PERRL, EOMI - ENT ENT exam: Present: mucous membranes moist. Absent: mucous membranes dry - Neck Neck exam: Present: full ROM. Absent: tenderness - Chest Chest inspection: Present: symmetric chest wall rise. Absent: tenderness - Respiratory Respiratory exam: Present: normal lung sounds bilaterally. Absent: respiratory distress - Cardiovascular Cardiovascular exam: Present: tachycardia, normal heart sounds - Abdominal Exam Abdominal exam: Present: soft, tenderness (diffusely), other (evidence of multiple prior abdomen surgeries due to scars). Absent: distention - Extremities Exam Extremities exam: Present: full ROM. Absent: tenderness, pedal edema - Neurological Exam Neurological exam: Present: alert, oriented X3, CN II-XII intact. Absent: motor sensory deficit - Psychiatric Psychiatric exam: Present: normal affect, normal mood - Skin Skin exam: Present: warm, dry Course Course Narrative: Labs with mildly elevated T bili which seems to be consistent with previous, mild hypokalemia as well. Bolus normal saline with 40 mEq of potassium run at 250ml/hr to give patient 10 mEq/h over 4 hours. Patient discussed with Dr. Haskins and plan for admission to family medicine service for conservative management with NG tube placement. NG tube placed and patient discussed with Dr. Mejia for admission to Dr. Patel's service. Results - Labs CBC & BMP: 12/06/16 23:01 12/06/16 23:01 Lab Results: I have reviewed the patients labs Labs: Laboratory Tests 12/06/16 23:01 MCV 79.4 L MPV 9.2 L [place] # (Auto) 1.0 H Laboratory Tests 12/06/16 23:01 Sodium 135 L Potassium 3.0 L Chloride 94 L Carbon Dioxide 31 BUN 21 H Creatinine 1.40 H BUN/Creatinine Ratio 15.00 Glucose 122 H Total Bilirubin 2.50 H Alkaline Phosphatase 151 H Lipase 150.0 Disposition Clinical Impression: Abdominal pain, Small bowel obstruction, Hypokalemia Case discussed with: patient, patient's family Disposition: Still a Patient Condition: Stable
[2016-12-06 23:28] LABS: Basophils # 0.1 10*3/uL (0.0-0.2); Basophils % 0.5 % (0.0-0.8); Eosinophils # 0.2 10*3/uL (0.0-0.87); Hematocrit 42.8 VOL% (42.0-52.0); Hemoglobin 15.3 GM/DL (14.0-18.0); Immature Granulocytes % 0.4 %; Immature Granulocytes Absolute 0.04 #; Lymphocytes # 2.5 10*3/uL (1.4-4.0); Lymphocytes % 22.7 % (21.2-54.2); Mean Corpuscular HGB Conc 35.7 GM/DL (32-36); Mean Corpuscular Hemoglobin 28 PG (27-34); Mean Corpuscular Volume 79.4 FL (87-102); Mean Platelet Volume 9.2 FL (9.6-12.0); Monocytes % 9.3 % (1.7-12.7); Neutrophils # 7.2 10*3/uL (1.4-7.4); Neutrophils % 65.1 % (38.7-73.9); Platelet Count 330 T/CUMM (130-400); Red Blood Count 5.39 MC/CUMM (3.8-5.5)
[2016-12-06 23:31] LABS: Bilirubin,Total 2.5 MG/DL (0.2-1.0); Calcium 9.4 MG/DL (8.5-10.1); Osmolality,Calculated 273.1 MOS/KG (273-304); Total Protein 7.4 G/DL (6.4-8.3)
[2016-12-06] MEDS ORDERED: MORPHINE 2 MG/1 ML SYRINGE ONE (23:33)
[2016-12-06] MEDS ORDERED: ONDANSETRON 4 MG/2 ML VIAL ONE (23:33)
[2016-12-07] MEDS ORDERED: MORPHINE 2 MG/1 ML SYRINGE IV PRN (04:12)
[2016-12-07] MEDS ORDERED: ACETAMINOPHEN 325 MG TABLET PO PRN (04:12)
[2016-12-07] MEDS ORDERED: ONDANSETRON 4 MG/2 ML VIAL IV PRN (04:12)
[2016-12-07] MEDS: SODIUM CHLOR 0.9% KCL 40 MEQ 40 MEQ/1,000 ML BAG IV SCH ×3 (05:29→20:50)
--- NOTE | 2016-12-07 06:16 | XRay Report ---
XR chest 1V portable Indication: NG tube placement Comparison: None. Technique: Portable AP chest was performed. Findings: NG tube lies within the gastric fundus the tip directed towards the left lateral abdominal wall. Lungs are grossly clear. Bowel gas pattern demonstrates gaseous distention of small and large bowel. Impression: 1. NG tube placement as detailed 12/07/2016 6:13 AM PROCEDURE INTERPRETED AT [facility] DEPARTMENT OF RADIOLOGY Final Report Signed by: Dr. Greg Sorensen
--- NOTE | 2016-12-07 06:48 | CT Report ---
CT abdomen pelvis w con Indication: Generalized abdominal pain. Comparison: CT of abdomen 11/03/2016. Technique: CT of the abdomen and pelvis was performed following administration of intravenous contrast. The CT examination was performed using one or more of the following dose reduction techniques: Automatic exposure control, adjustment of the mA and kV according to patient size, or iterative reconstruction techniques. Findings: Borderline to mild cardiomegaly is again demonstrated. Dependent atelectasis of the lungs is present. Gallbladder surgically absent. Lipomatous atrophy of the pancreas is present. Surgical changes are noted within small bowel in mid abdomen with suture line demonstrated containing no evidence of anastomotic leak or other focal abnormality. Along the anterior margin of the small bowel image #57, there is an oval-shaped focus of increased attenuation with some macroscopic fat present that measures 2.8 x 1.8 x 2.5 cm. This possibly reflects a focal area of mesenteric infarction or fat necrosis. A similar appearing focus measuring 2.3 cm x 1.7 cm x 2.1 cm additionally exist within the right upper mesenteric fat image #65. Additional abnormalities are noted within the mesenteric fat image #81 near the midline and slightly to the left of midline image #87. Each of these lesions has demonstrated little change since comparison study. Multiple loops of small bowel appear distended and filled with fluid. Additional bowel anastomosis at the rectum is demonstrated and is somewhat difficult to visualize secondary to streak artifact arising from bilateral hip prosthesis. No free fluid is noted within the pelvis. No adenopathy can be identified within the pelvis or abdomen. Otherwise, the imaged structures of the lower chest, liver, spleen, pancreas, adrenal glands, kidneys, aorta, inferior vena cava, stomach, bowel, and intrapelvic contents as well as bony structures soft tissues and musculature the body wall demonstrate no evidence of significant pathology. Impression: 1. Multiple focal abnormalities of the mesentery are present. These have heterogeneous soft tissue attenuation with macroscopic fat attenuation additionally present. These could reflect multiple areas of omental/mesenteric infarction and/or fat necrosis. Correlation with patient's known clinical history is recommended. Overall size and number are stable compared to the previous study. 2. Extensive bowel surgery is suggested. Multiple bowel loops are distended and contain air fluid levels. The distal bowel anastomosis is difficult to evaluate secondary to streak artifact from bilateral hip prostheses. Small bowel obstruction is not excluded. 12/07/2016 6:39 AM PROCEDURE INTERPRETED AT [facility] DEPARTMENT OF RADIOLOGY Final Report Signed by: Dr. Greg Sorensen
[2016-12-07] MEDS ORDERED: PANTOPRAZOLE 40 MG TABLET PO SCH (09:00)
[2016-12-07] MEDS: DOCUSATE SODIUM 100 MG CAPSULE PO SCH ×2 (09:32→20:57)
[2016-12-07] MEDS: DEXTROSE 5% NACL 0.45% 1,000 ML IV SCH ×2 (15:31→20:49)
--- NOTE | 2016-12-07 16:09 | Internal Med History&Physical ---
Assessment and Plan - Time spent with patient Time spent with patient: Greater than 30 minutes (1) Small bowel obstruction due to adhesions Status: Acute Assessment and plan: Patient is n.p.o., continue IV fluids, NG tube suction continue, consult surgery today Current Visit: Yes (2) Hypokalemia Status: Acute Assessment and plan: Follow daily labs, replacement of potassium as needed. Current Visit: Yes (3) GERD (gastroesophageal reflux disease) Status: Chronic Assessment and plan: Continue Protonix will switch from p.o. to IV Current Visit: Yes (4) Hypertension Status: Chronic Assessment and plan: Home medications for blood pressure not started yet. Current Visit: No History of Present Illness Chief complaint: Abdominal pain History of present illness: Mr. Singh is a 46 year old male, has at his bedside. History obtained from the patient and the . PCP: Dr. Patel. Patient came to the ER on 12/06/2016 for abdominal pain . Admitted from the ER for possible small bowel obstruction. Patient has history of multiple abdominal surgeries along with complications since [address] Patient sees Dr[address] Funk for GI issues. So far he has been admitted to the hospital on 4 8 times in the past. Dr. Rivera. is his surgeon. Patient does not give any history of nausea vomiting, fever. History of cholecystectomy colectomy, small bowel obstruction in the past. Last admission for small bowel obstruction in October 2016 Home Medications Medication Instructions Recorded Confirmed Type busPIRone [Buspar] 15 mg PO BID 01/18/15 12/07/16 History Atomoxetine HCl [Strattera] 10 mg PO DAILY 07/04/15 12/07/16 History Omeprazole [Prilosec] 20 mg PO BID 02/27/16 12/07/16 History Triamterene/Hctz 37.5-25 Tab 1 tablet PO DAILY 08/12/16 12/07/16 History [Maxzide 37.5-25] HYDROcodone/ACETAMIN 5-325 [[place] 1 tablet PO Q6H PRN #10 tablet 12/02/16 Rx 5-325] Allergies Allergy/AdvReac Type Severity Reaction Status Date / Time No Known Allergies Allergy Verified 12/06/16 21:32 Medical,Surgical,& Family Hx - Medical History Cardio: No history of: Aneurysm, Cardiac Dysrhythmia, Cerebrovascular Disease, Congenital Heart Disease, CHF, CAD, Hypertension, [place], Pacemaker, PVD, Valvular Heart Disease, Cardiovascular Problems Psychological: History of: Anxiety Disorders, ADHD No history of: Behavior Problems, Bipolar Disorder, Depression, Previous Suicide Attempt, Psychiatric/Substance Abuse Tx, Schizophrenia, Violent Behavior , Psychiatric Problems Neurology: No history of: Brain Aneurysm, Cerebral Hemorrhage, Cerebrovascular Accident , Cerebral Palsy, Dementia, Migraine, Multiple Sclerosis, Parkinson's Disease, Peripheral Neuropathy, Seizures, TIA, Vertigo, Neurologocal Cancer HEENT: History of: Ear Problem ([place]), Eye Problem (wears glasses), Dental Problems (upper plate), HEENT Problems (mucus removed) No history of: Glaucoma, Oral Cancer Endocrine: No history of: Adrenal Disease, Diabetes Mellitus (IDDM), Diabetes Mellitus ( NIDDM), Dyslipidemia, Thyroid Disorder, Endocrine Cancer, Endocrine Problems Rheumatology: History of;: Gout No history of;: Fibromyalgia, Myasthenia Gravis, Psoriasis, Rheumatoid Arthritis, Sjogrens, Systemic Lupus Erythematosus, Rheumatological Problems Respiratory: No history of: Asthma, Bronchitis, COPD, Intubation, Obstructive Sleep Apnea , Pulmonary Embolism, Pulmonary Hypertension, Pneumonia, Lung Cancer Comment Only: Respiratory Problems (FLU VAC- YES; PNEU VAC- YES.) Renal: No history of: Renal (Kidney) Cancer, Dialysis, Renal Failure, Renal Problems Genitourinary: No history of: Bladder Problem, Kidney Stones, Prostate Problems, Recurring Urinary Tract Infections, Genitourinary Cancer, Problems Gastrointestinal: History of: Bowel Obstruction (recurrent; treated coservatively except 03/2015), GERD, Ulcerative Colitis (s/p colectomy total), GI Problems ([place] Syndrome) No history of: Clostridium Difficile, Crohn's Disease, Diverticulitis/ Diverticulosis, Esophageal Varices, Gastrointestinal Bleed, Hemorrhoids, Hematochezia, Hepatitis, Liver Problems, Pancreatitis, Polyps, Gastrointestinal Cancer Musculoskeletal: No history of: Amputation, Back/Neck Problems, Degenerative Disk Disease, Herniated Disk, Osteoporosis, Musculoskeletal Cancer, Musculoskeletal Problems Hematology: No history of: Anemia, Blood Transfusion Reaction, Bleeding Problems, Clotting Problems, Sickle Cell Disease, Hematologic Cancer, Blood Disorders Other: History of: MRSA No history of: Anesthesia Reactions, Anaphylaxis, Cancer, Eczema, HIV, Malignant Hyperthermia, Vancomycin-Resistant Enterococci, Skin Problems, Miscellaneous Medical Problems - Surgical History Cardiac Surgeries: Patient Denies: Femoral-Popliteal Bypass Graft, Cardiac Catheterization, Carotid Endarterectomy, Internal Defibrillator, Vascular Access Devices Thoracic Surgeries: Patient denies;: Kidney (Renal Surgery), Lithotripsy, Nephrectomy, Organ Transplant, Lobectomy Neurologic Surgeries: Patient denies: Brain Aneurysm, Cerebral Hemorrhage, Neurologic Surgery HEENT Surgeries: Surgical HX of: Tonsilectomy & Adenoidectomy (tonsil) Patient denies: Carotid Endarterectomy, Eye Surgery, Thyroid Surgery Abdominal Surgeries: Surgical HX of: Abdominal Surgery (enterocolysis, rt ostomy. total colectomy), Appendectomy, Cholecystectomy, Colonoscopy, EGD, Hernia Repair (umbilical hernia repair. OSTOMY REVERSAL 05/2016.) Patient denies: Gastric Bypass Surgery, Splenectomy Reproductive Surgeries: Patient denies;: Cystoscopy, Genitourinary Surgery, Prostate Surgery Orthopedic Surgeries: Surgical HX of;: Total Hip Replacement (bilateral) Patient denies;: Implanted Devices, Orthopedic Surgery, Spinal Surgery, Total Knee Replacement - Family History Family History: Reports;: Family Anesthesia Reaction (mother nausea), Family Cancer (paternal grandmother), Family Diabetes (father), Family Heart Disease ( father), Family Stroke (mother and father) Denies;: Family Hypertension, Family Psychiatric Problems - Social History Smoking Status: Never smoker Frequency of Alcohol Use: None Type of Drug Use: None - Constitutional Constitutional: Present: as per HPI - EENT Eyes: Present: as per HPI - Cardiovascular Cardiovascular: Present: as per HPI - Respiratory Respiratory: Present: as per HPI - Gastrointestinal Gastrointestinal: Present: abdominal pain - Genitourinary Genitourinary: Present: as per HPI Exam - Constitutional Vitals: Period Temp Pulse Resp BP Sys/Echevarria Pulse Ox Last 24 Hr 97.4 F-98.5 F 76-118 16-20 101-108/70-79 97-100 Exam: GENERAL APPEARANCE: alert and oriented, , in no acute distress, has NG tube in place, sitting in the chair. HEENT: normal. EYES: extraocular movement intact (EOMI), wears glasses. NECK/THYROID: neck supple, full range of motion, no cervical lymphadenopathy, HEART: regular rate and rhythm, no murmurs, rubs, gallops. LUNGS: clear to auscultation bilaterally, no wheezes, rales, rhonchi. ABDOMEN: soft, nontender, no guarding rigidity or rebound tenderness, not distended no organomegaly , bowel sounds decreased significantly. EXTREMITIES: no edema. NEUROLOGIC: alert and oriented, cranial nerves 2-12 grossly intact, Results - Labs CBC & BMP: 12/06/16 23:01 12/06/16 23:01 Quality Measures - Stroke Symptom Onset Unknown: No
[2016-12-07] MEDS ORDERED: DEXTROSE 5% NACL 0.9% 1,000 ML IV SCH (16:30)
--- NOTE | 2016-12-07 17:18 | General Surgery Consult Note ---
Assessment and Plan - Time spent with patient Time spent with patient: Less than 30 minutes (1) Small bowel obstruction due to adhesions Status: Acute Assessment and plan: Impression: Abdominal pain possibly secondary to recurrent partial small bowel obstruction. Plan: IV fluids and NG suction for now. Current Visit: Yes (2) Ulcerative colitis Status: Chronic Assessment and plan: Ulcerative colitis status post total colectomy with a J-pouch Current Visit: No History of Present Illness Chief complaint: Recurrent small bowel obstruction History of present illness: Mr. Singh is a 46 year old male white male who has had a total colectomy and now has a J-pouch for ulcerative colitis done back in May at [facility]. Since that time he has had several admissions for what looks like partial bowel obstruction at this time. He was in 05 November with similar pattern and just simply opened up and was able to go home a short time. Came back in this time because of pain but no nausea and vomiting. CT scan did suggest partial bowel obstruction at this point and NG tube were inserted. He has had minimal drainage and he says he has had 3 bowel movements. Abdomen looks soft there is hypoactive bowel sounds but his potassium is a little low. At this point we will observe him on NG suction at this time and not push for any surgery see if he can open up again at this point. Home Medications Medication Instructions Recorded Confirmed Type busPIRone [Buspar] 15 mg PO BID 01/18/15 12/07/16 History Atomoxetine HCl [Strattera] 10 mg PO DAILY 07/04/15 12/07/16 History Omeprazole [Prilosec] 20 mg PO BID 02/27/16 12/07/16 History Triamterene/Hctz 37.5-25 Tab 1 tablet PO DAILY 08/12/16 12/07/16 History [Maxzide 37.5-25] HYDROcodone/ACETAMIN 5-325 [[place] 1 tablet PO Q6H PRN #10 tablet 12/02/16 Rx 5-325] Allergies Allergy/AdvReac Type Severity Reaction Status Date / Time No Known Allergies Allergy Verified 12/06/16 21:32 Medical,Surgical,& Family Hx - Medical History Cardio: No history of: Aneurysm, Cardiac Dysrhythmia, Cerebrovascular Disease, Congenital Heart Disease, CHF, CAD, Hypertension, [place], Pacemaker, PVD, Valvular Heart Disease, Cardiovascular Problems Psychological: History of: Anxiety Disorders, ADHD No history of: Behavior Problems, Bipolar Disorder, Depression, Previous Suicide Attempt, Psychiatric/Substance Abuse Tx, Schizophrenia, Violent Behavior , Psychiatric Problems Neurology: No history of: Brain Aneurysm, Cerebral Hemorrhage, Cerebrovascular Accident , Cerebral Palsy, Dementia, Migraine, Multiple Sclerosis, Parkinson's Disease, Peripheral Neuropathy, Seizures, TIA, Vertigo, Neurologocal Cancer HEENT: History of: Ear Problem ([place]), Eye Problem (wears glasses), Dental Problems (upper plate), HEENT Problems (mucus removed) No history of: Glaucoma, Oral Cancer Endocrine: No history of: Adrenal Disease, Diabetes Mellitus (IDDM), Diabetes Mellitus ( NIDDM), Dyslipidemia, Thyroid Disorder, Endocrine Cancer, Endocrine Problems Rheumatology: History of;: Gout No history of;: Fibromyalgia, Myasthenia Gravis, Psoriasis, Rheumatoid Arthritis, Sjogrens, Systemic Lupus Erythematosus, Rheumatological Problems Respiratory: No history of: Asthma, Bronchitis, COPD, Intubation, Obstructive Sleep Apnea , Pulmonary Embolism, Pulmonary Hypertension, Pneumonia, Lung Cancer Comment Only: Respiratory Problems (FLU VAC- YES; PNEU VAC- YES.) Renal: No history of: Renal (Kidney) Cancer, Dialysis, Renal Failure, Renal Problems Genitourinary: No history of: Bladder Problem, Kidney Stones, Prostate Problems, Recurring Urinary Tract Infections, Genitourinary Cancer, Problems Gastrointestinal: History of: Bowel Obstruction (recurrent; treated coservatively except 03/2015), GERD, Ulcerative Colitis (s/p colectomy total), GI Problems ([place] Syndrome) No history of: Clostridium Difficile, Crohn's Disease, Diverticulitis/ Diverticulosis, Esophageal Varices, Gastrointestinal Bleed, Hemorrhoids, Hematochezia, Hepatitis, Liver Problems, Pancreatitis, Polyps, Gastrointestinal Cancer Musculoskeletal: No history of: Amputation, Back/Neck Problems, Degenerative Disk Disease, Herniated Disk, Osteoporosis, Musculoskeletal Cancer, Musculoskeletal Problems Hematology: No history of: Anemia, Blood Transfusion Reaction, Bleeding Problems, Clotting Problems, Sickle Cell Disease, Hematologic Cancer, Blood Disorders Other: History of: MRSA No history of: Anesthesia Reactions, Anaphylaxis, Cancer, Eczema, HIV, Malignant Hyperthermia, Vancomycin-Resistant Enterococci, Skin Problems, Miscellaneous Medical Problems - Surgical History Cardiac Surgeries: Patient Denies: Femoral-Popliteal Bypass Graft, Cardiac Catheterization, Carotid Endarterectomy, Internal Defibrillator, Vascular Access Devices Thoracic Surgeries: Patient denies;: Kidney (Renal Surgery), Lithotripsy, Nephrectomy, Organ Transplant, Lobectomy Neurologic Surgeries: Patient denies: Brain Aneurysm, Cerebral Hemorrhage, Neurologic Surgery HEENT Surgeries: Surgical HX of: Tonsilectomy & Adenoidectomy (tonsil) Patient denies: Carotid Endarterectomy, Eye Surgery, Thyroid Surgery Abdominal Surgeries: Surgical HX of: Abdominal Surgery (enterocolysis, rt ostomy. total colectomy), Appendectomy, Cholecystectomy, Colonoscopy, EGD, Hernia Repair (umbilical hernia repair. OSTOMY REVERSAL 05/2016.) Patient denies: Gastric Bypass Surgery, Splenectomy Reproductive Surgeries: Patient denies;: Cystoscopy, Genitourinary Surgery, Prostate Surgery Orthopedic Surgeries: Surgical HX of;: Total Hip Replacement (bilateral) Patient denies;: Implanted Devices, Orthopedic Surgery, Spinal Surgery, Total Knee Replacement - Family History Family History: Reports;: Family Anesthesia Reaction (mother nausea), Family Cancer (paternal grandmother), Family Diabetes (father), Family Heart Disease ( father), Family Stroke (mother and father) Denies;: Family Hypertension, Family Psychiatric Problems - Social History Smoking Status: Never smoker Frequency of Alcohol Use: None Type of Drug Use: None 12 point system: reviewed and no additional remarkable complaints except as stated Exam - Constitutional Vitals: Period Temp Pulse Resp BP Sys/Echevarria Pulse Ox Last 24 Hr 97.4 F-98.5 F 76-118 16-20 101-108/70-79 97-100 General appearance: mild distress - Head Head exam: Present: normal inspection - ENT ENT exam: Present: normal exam - Neck Neck exam: Present: normal inspection - Respiratory Respiratory exam: Present: clear to auscultation bilaterally, rales - Cardiovascular Cardiovascular exam: Present: RRR - GI/Abdominal GI/Abdominal exam: Present: hypoactive bowel sounds, soft. Absent: distended, tenderness - Extremities Exam Extremities exam: Present: normal inspection - Back Exam Back exam: Present: normal inspection - Neurological Exam Neurological exam: Present: alert, oriented X3, CN II-XII intact - Skin Skin exam: Present: normal color, warm, dry Quality Measures - Stroke Symptom Onset Unknown: No Results - Labs CBC & BMP: 12/06/16 23:01 12/06/16 23:01 Lab Results: I have reviewed the past 24 hour labs - Diagnostic Findings Procedure: CT Abdomen and Pelvis: other (Suggestive of partial small bowel obstruction)
[2016-12-07] MEDS: POTASSIUM CHLORIDE INJ 40 MEQ in DEXTROSE 5% NACL 0.9% 1,000 ML IV SCH (20:56)
[2016-12-08] MEDS: POTASSIUM CHLORIDE INJ 40 MEQ in DEXTROSE 5% NACL 0.9% 1,000 ML IV SCH ×2 (05:49→16:12)
[2016-12-08 06:20] LABS: Basophils % 0.5 % (0.0-0.8); Eosinophils # 0.2 10*3/uL (0.0-0.87); Hematocrit 35.2 VOL% (42.0-52.0); Hemoglobin 12.1 GM/DL (14.0-18.0); Immature Granulocytes % 0.5 %; Immature Granulocytes Absolute 0.03 #; Lymphocytes # 1.5 10*3/uL (1.4-4.0); Mean Corpuscular HGB Conc 34.4 GM/DL (32-36); Mean Corpuscular Hemoglobin 28 PG (27-34); Mean Corpuscular Volume 82.4 FL (87-102); Mean Platelet Volume 9.1 FL (9.6-12.0); Monocytes # 0.6 10*3/uL (0.11-0.8); Monocytes % 10.4 % (1.7-12.7); Neutrophils # 3.7 10*3/uL (1.4-7.4); Neutrophils % 60.6 % (38.7-73.9); Platelet Count 261 T/CUMM (130-400); Red Blood Count 4.27 MC/CUMM (3.8-5.5); Red Cell Distribution Width 15.3 % (9.3-17.3); White Blood Count 6.1 T/CUMM (4-12)
[2016-12-08 06:47] LABS: Magnesium 2.1 MG/DL (1.8-2.4); Phosphorous 1.8 MG/DL (2.5-4.9)
[2016-12-08 06:48] LABS: Osmolality,Calculated 292.4 MOS/KG (273-304); Potassium 3.8 MMOL/L (3.5-5.1)
--- NOTE | 2016-12-08 07:33 | XRay Report ---
History small bowel obstruction Abdomen, 2 views Comparison 11/04/2016 NG tube tip overlies the distal stomach. Clips overlie the right upper quadrant There are scattered air-fluid levels present within air-filled loops of bowel measuring up to 4 cm primarily felt to be small bowel however some air could be present in the colon is well. The dilatation is much less pronounced than on the prior study Bilateral hip prostheses present. Pelvic field was present. No free air identified. Impression: Ileus versus partial small bowel obstruction. Findings are less pronounced than on the prior plain films and more recent CT of 12/06/2016 PROCEDURE INTERPRETED AT [facility] DEPARTMENT OF RADIOLOGY Final Report Signed by: Dr. Sharon Allred
[2016-12-08] MEDS: DOCUSATE SODIUM 100 MG CAPSULE PO SCH ×2 (08:16→21:43)
[2016-12-08] MEDS: PANTOPRAZOLE 40 MG VIAL IV SCH (08:44)
--- NOTE | 2016-12-08 09:40 | Internal Med Progress Note ---
Assessment and Plan (1) Small bowel obstruction due to adhesions Status: Acute Assessment and plan: Patient is n.p.o., continue IV fluids, NG tube suction continue, Current Visit: Yes (2) Hypokalemia Status: Acute Assessment and plan: Follow daily labs, replacement of potassium as needed. Current Visit: Yes (3) GERD (gastroesophageal reflux disease) Status: Chronic Assessment and plan: Continue Protonix will switch from p.o. to IV Current Visit: Yes (4) Hypertension Status: Chronic Assessment and plan: Home medications for blood pressure not started yet. Current Visit: No Internal Medicine - PN: Subj Interval history: PCP: Dr. Patel, Patient seen and examined on the second floor, accompanied by the at the bedside. Patient is doing better than yesterday, no nausea or vomiting has NG tube in place. Has IV fluids in place, n.p.o. for now Had 10 episodes of bowel movement watery greenish dark [place] in color. No swapna blood seen as per the patient. No fever no chest pain, no abdominal pain. Consultants on the case: Surgery. Exam (Progress Note) - Constitutional Vitals: Period Temp Pulse Resp BP Sys/Echevarria Pulse Ox Last 24 Hr 97.2 F-98.7 F 75-91 18-20 92-107/54-73 96-100 Exam: GENERAL APPEARANCE: alert and oriented, , in no acute distress, has NG tube in place, lying in the bed.. HEENT: normal. EYES: extraocular movement intact (EOMI), wears glasses. NECK/THYROID: neck supple, HEART: regular rate and rhythm, no murmurs, rubs, gallops. LUNGS: clear to auscultation bilaterally, no wheezes, rales, rhonchi. ABDOMEN: soft, nontender, no guarding, rigidity or rebound tenderness, not distended no organomegaly , bowel sounds decreased significantly. EXTREMITIES: no edema. NEUROLOGIC: alert and oriented, cranial nerves 2-12 grossly intact, Results - Labs CBC & BMP: 12/08/16 05:57 12/08/16 05:57 Lab Results: I have reviewed the past 24 hour labs - Diagnostic Findings Procedure: Abdominal x-ray: report reviewed by me (From 12/07/2016,ileus versus partial small bowel obstruction.) Quality Measures - Stroke Symptom Onset Unknown: No
--- NOTE | 2016-12-08 09:42 | General Surgery Progress Note ---
Assessment and Plan - Time spent with patient Time spent with patient: Less than 30 minutes (1) Small bowel obstruction due to adhesions Status: Acute Assessment and plan: Impression: Abdominal pain possibly secondary to recurrent partial small bowel obstruction. Plan: IV fluids and NG suction for now. 12/08/2016 Patient is afebrile and had multiple bowel movements now. Abdomen is softer hypoactive bowel sounds present. Labs look good and his abdominal films look improved and there is still some gaseous distention. Will put the NG tube on gravity and plan to try him on some liquids and just see how he tolerates things and see if he is going to continue to show signs that is opening up. Did not want to pull the NG tube at this point because it may have to be put back in. At this point will go ahead and keep the NG tube and if he has any nausea or fullness they could get back up and was able count and drainage it has. Current Visit: Yes (2) Ulcerative colitis Status: Chronic Assessment and plan: Ulcerative colitis status post total colectomy with a J-pouch Current Visit: No Subjective Patient reports: Present: no new complaints, feels better, pain is less, bowel movement (Multiple bowel movement), afebrile Exam - Constitutional Vitals: Period Temp Pulse Resp BP Sys/Echevarria Pulse Ox Last 24 Hr 97.2 F-98.7 F 75-91 18-20 92-107/54-73 96-100 General appearance: mild distress - Head Head exam: Present: normal inspection - ENT ENT exam: Present: normal exam - Neck Neck exam: Present: normal inspection - Respiratory Respiratory exam: Present: clear to auscultation bilaterally, rales - Cardiovascular Cardiovascular exam: Present: RRR - GI/Abdominal GI/Abdominal exam: Present: hypoactive bowel sounds, soft. Absent: distended, hernia - Extremities Exam Extremities exam: Present: normal inspection - Back Exam Back exam: Present: normal inspection - Neurological Exam Neurological exam: Present: alert, oriented X3, CN II-XII intact - Skin Skin exam: Present: normal color, warm, dry Results - Labs CBC & BMP: 12/08/16 05:57 12/08/16 05:57 Lab Results: I have reviewed the past 24 hour labs - Diagnostic Findings Procedure: Abdominal Flat/Erect: report reviewed by me (Still with some gas distention but much improved from previous films) Quality Measures - Stroke Symptom Onset Unknown: No
[2016-12-08] MEDS: DEXT 5% NACL 0.9% KCL 40 MEQ 40 MEQ/1,000 ML BAG IV SCH ×2 (16:06→23:58)
[2016-12-09 06:24] LABS: Basophils % 0.8 % (0.0-0.8); Eosinophils # 0.3 10*3/uL (0.0-0.87); Eosinophils % 5.2 % (0.00-10.9); Hematocrit 31.1 VOL% (42.0-52.0); Hemoglobin 10.7 GM/DL (14.0-18.0); Immature Granulocytes % 0.2 %; Immature Granulocytes Absolute 0.01 #; Lymphocytes # 1.5 10*3/uL (1.4-4.0); Lymphocytes % 30.9 % (21.2-54.2); Mean Corpuscular HGB Conc 34.4 GM/DL (32-36); Mean Corpuscular Hemoglobin 29 PG (27-34); Mean Corpuscular Volume 83.4 FL (87-102); Mean Platelet Volume 8.8 FL (9.6-12.0); Monocytes # 0.5 10*3/uL (0.11-0.8); Monocytes % 9.6 % (1.7-12.7); Neutrophils # 2.6 10*3/uL (1.4-7.4); Neutrophils % 53.3 % (38.7-73.9); Platelet Count 225 T/CUMM (130-400); Red Blood Count 3.73 MC/CUMM (3.8-5.5); Red Cell Distribution Width 14.7 % (9.3-17.3); White Blood Count 4.8 T/CUMM (4-12)
[2016-12-09 06:52] LABS: Calcium 8.6 MG/DL (8.5-10.1); Osmolality,Calculated 287.6 MOS/KG (273-304); Potassium 3.8 MMOL/L (3.5-5.1)
[2016-12-09] MEDS: DEXT 5% NACL 0.9% KCL 40 MEQ 40 MEQ/1,000 ML BAG IV SCH ×2 (07:54→17:22)
--- NOTE | 2016-12-09 07:54 | XRay Report ---
XR abdomen 2V Indication: Small bowel obstruction. Comparison: Abdominal series 12/08/2016 Technique: Flat and erect images of the abdomen were performed. Findings: NG tube is stable. There is perhaps slightly decreased amount of total bowel gas within small bowel loops of the left upper quadrant. Additional bowel distention in the central to lower abdomen is present similar in appearance to previous study. Bones and soft tissues demonstrate little change. Bilateral hip arthroplasties remain present. Impression: 1. Little overall change in the appearance of the bowel gas pattern. 12/09/2016 7:51 AM PROCEDURE INTERPRETED AT [facility] DEPARTMENT OF RADIOLOGY Final Report Signed by: Dr. Greg Sorensen
[2016-12-09] MEDS: PANTOPRAZOLE 40 MG VIAL IV SCH (08:57)
[2016-12-09] MEDS: DOCUSATE SODIUM 100 MG CAPSULE PO SCH ×3 (08:59→21:27)
--- NOTE | 2016-12-09 09:32 | General Surgery Progress Note ---
Assessment and Plan (1) Small bowel obstruction due to adhesions Status: Acute Assessment and plan: Impression: Abdominal pain possibly secondary to recurrent partial small bowel obstruction. Plan: IV fluids and NG suction for now. 12/08/2016 Patient is afebrile and had multiple bowel movements now. Abdomen is softer hypoactive bowel sounds present. Labs look good and his abdominal films look improved and there is still some gaseous distention. Will put the NG tube on gravity and plan to try him on some liquids and just see how he tolerates things and see if he is going to continue to show signs that is opening up. Did not want to pull the NG tube at this point because it may have to be put back in. At this point will go ahead and keep the NG tube and if he has any nausea or fullness they could get back up and was able count and drainage it has. 12/09/2016 Patient generally looks pretty good he denies any nausea tolerating his liquids instead he still had a small bowel movement. I remain a little concerned that his plain films continue to show some dilated loops of bowel. I have elected not to pull the NG tube at this time discontinuing the liquids and hope to see little more improvement in the x-ray pattern before pulling the tube. Will just keep him on liquids at this time. Current Visit: Yes (2) Ulcerative colitis Status: Chronic Assessment and plan: Ulcerative colitis status post total colectomy with a J-pouch Current Visit: No Subjective Patient reports: Present: no new complaints, feels better, tolerating liquids well, bowel movement, afebrile Exam - Constitutional Vitals: Period Temp Pulse Resp BP Sys/Echevarria Pulse Ox Last 24 Hr 97.4 F-98.0 F 68-82 16-20 85-100/44-70 95-100 General appearance: no acute distress - Head Head exam: Present: normal inspection - ENT ENT exam: Present: normal exam - Neck Neck exam: Present: normal inspection - Respiratory Respiratory exam: Present: clear to auscultation bilaterally - Cardiovascular Cardiovascular exam: Present: RRR - GI/Abdominal GI/Abdominal exam: Present: hypoactive bowel sounds, soft. Absent: distended, tenderness - Extremities Exam Extremities exam: Present: normal inspection - Back Exam Back exam: Present: normal inspection - Neurological Exam Neurological exam: Present: alert, oriented X3, CN II-XII intact - Skin Skin exam: Present: normal color, warm, dry Results - Labs CBC & BMP: 12/09/16 05:56 12/09/16 05:56 Lab Results: I have reviewed the past 24 hour labs - Diagnostic Findings Procedure: Abdominal Flat/Erect: report reviewed by me (Still with some distended small bowel on x-ray) Quality Measures - Stroke Symptom Onset Unknown: No
[2016-12-09] MEDS: busPIRone 15 MG TABLET PO SCH (21:03)
[2016-12-09] MEDS: DOCUSATE SODIUM 100 MG/10 ML UDCUP PO SCH (21:32)
[2016-12-10] MEDS: DEXT 5% NACL 0.9% KCL 40 MEQ 40 MEQ/1,000 ML BAG IV SCH ×2 (01:22→09:43)
[2016-12-10 05:32] LABS: Basophils % 0.5 % (0.0-0.8); Eosinophils # 0.3 10*3/uL (0.0-0.87); Eosinophils % 4.1 % (0.00-10.9); Hematocrit 30.5 VOL% (42.0-52.0); Hemoglobin 10.5 GM/DL (14.0-18.0); Immature Granulocytes % 0.3 %; Immature Granulocytes Absolute 0.02 #; Lymphocytes # 1.6 10*3/uL (1.4-4.0); Lymphocytes % 26.4 % (21.2-54.2); Mean Corpuscular HGB Conc 34.4 GM/DL (32-36); Mean Corpuscular Hemoglobin 29 PG (27-34); Mean Corpuscular Volume 83.3 FL (87-102); Mean Platelet Volume 9.3 FL (9.6-12.0); Monocytes # 0.5 10*3/uL (0.11-0.8); Monocytes % 8.8 % (1.7-12.7); Neutrophils # 3.6 10*3/uL (1.4-7.4); Neutrophils % 59.9 % (38.7-73.9); Platelet Count 241 T/CUMM (130-400); Red Blood Count 3.66 MC/CUMM (3.8-5.5); Red Cell Distribution Width 14.6 % (9.3-17.3); White Blood Count 6.1 T/CUMM (4-12)
[2016-12-10 06:02] LABS: Calcium 8.7 MG/DL (8.5-10.1); Osmolality,Calculated 286.6 MOS/KG (273-304); Potassium 3.9 MMOL/L (3.5-5.1)
--- NOTE | 2016-12-10 07:52 | XRay Report ---
XR abdomen 2V Indication: Small bowel obstruction Comparison: Abdominal series 12/09/2016 Technique: Flat and erect images of the abdomen were performed. Findings: NG tube is present stable position. Previous cholecystectomy is demonstrated. Air-fluid levels within gas-filled distended small bowel residing within the left upper abdomen and overall appearance of bowel loops within the upper abdomen has changed little since comparison study. Additional air-filled viscus to the midline and right of midline are present. There appears to be some interval increase in rectal gas. Impression: 1. Interval increase in rectal gas may reflect partial resolution of small bowel obstruction. The overall appearance of gas-filled small bowel has changed little since comparison. 12/10/2016 7:49 AM PROCEDURE INTERPRETED AT [facility] DEPARTMENT OF RADIOLOGY Final Report Signed by: Dr. Greg Sorensen
--- NOTE | 2016-12-10 08:35 | Family Practice Progress Note ---
Family Practice - PN: Subj Interval history: Patient seen this afternoon. Is doing significantly better. States he is not having any abdominal pain the NG tube is in place and clamped. Has been taking clear liquids without difficulty. Voiding well and is in very good spirits. No flank pain or other constitutional symptoms at this time Exam (Progress Note) - Constitutional Vitals: Period Temp Pulse Resp BP Sys/Echevarria Pulse Ox Last 24 Hr 96.9 F-98.2 F 71-86 18-20 103-116/59-80 96-100 Exam: Generally very stable no acute distress alert and oriented. Answers all questions well in good spirits HEENT reveals equal reactive neck supple trachea midline Cardiovascular rate is regular no gallop or rub 1/6 systolic ejection murmur Lungs clear bilaterally no shortness of breath Abdomen soft nondistended nontender with palpation and/or percussion. He does have positive bowel sounds and admits to having bowel movements. Extremities no clubbing cyanosis or edema neurologically fully intact Results - Labs CBC & BMP: 12/10/16 04:27 12/10/16 04:27 Assessment and Plan (1) Abdominal pain Status: Acute Assessment and plan: 12/09/2016: No abdominal pain at present. He does have bowel movements Current Visit: Yes (2) Hypokalemia Status: Acute Assessment and plan: 12/09/2016: This seems to be resolving. He still has potassium in his IV fluids 40 mEq Current Visit: Yes (3) Small bowel obstruction Status: Acute Assessment and plan: 12/09/2016: Stable hemodynamically and seems that his obstruction is resolving with rest Current Visit: Yes (4) Dehydration Status: Acute Assessment and plan: 12/09/2016: Patient is taking fluids and does not appear to be dehydrated subjectively at present Current Visit: No Quality Measures - Stroke Symptom Onset Unknown: No
--- NOTE | 2016-12-10 08:51 | General Surgery Progress Note ---
Assessment and Plan - Time spent with patient Time spent with patient: Greater than 30 minutes (1) Small bowel obstruction due to adhesions Status: Acute Assessment and plan: 12/10/2016. Small bowel obstruction, improving. The patient is clearly feeling better, hungry, and shows signs clinically of improvement with resolution of obstruction. I will speak with Dr. Haskins before advancing his diet or pulling the NG tube, as they are still quite apprehensive, understandably so given his history. Current Visit: Yes Subjective Patient reports: Present: other (Denies nausea; has been tolerating clear liquids without difficulties. His NG tube has been clamped/to gravity. He is having gas and bowel movements, and complains of no abdominal pain.) Exam - Constitutional Vitals: Period Temp Pulse Resp BP Sys/Echevarria Pulse Ox Last 24 Hr 96.9 F-98.2 F 71-86 18-20 103-116/59-80 96-100 General appearance: no acute distress - GI/Abdominal GI/Abdominal exam: Present: hypoactive bowel sounds, soft. Absent: tenderness Results - Labs CBC & BMP: 12/10/16 04:27 12/10/16 04:27 - Diagnostic Findings Procedure: Abdominal Flat/Erect: report reviewed by me (Abdominal films today show increased gas in the rectal area, suggesting that there is improved bowel gas pattern, and possible overall resolution of the obstruction. There continues to be little change in the small bowel gas pattern.) Quality Measures - Stroke Symptom Onset Unknown: No
[2016-12-10] MEDS: PANTOPRAZOLE 40 MG VIAL IV SCH (08:59)
[2016-12-10] MEDS: DOCUSATE SODIUM 100 MG/10 ML UDCUP PO SCH ×2 (09:00→21:33)
[2016-12-10] MEDS: TRIAMTERENE/HCTZ 37.5-25 MG TABLET PO SCH (09:00)
[2016-12-10] MEDS: busPIRone 15 MG TABLET PO SCH ×2 (09:00→21:33)
[2016-12-10] MEDS ORDERED: ATOMOXETINE HCL 10 MG PO SCH (09:00)
[2016-12-11 06:09] LABS: Basophils % 0.7 % (0.0-0.8); Eosinophils # 0.3 10*3/uL (0.0-0.87); Eosinophils % 5.1 % (0.00-10.9); Hematocrit 30.9 VOL% (42.0-52.0); Immature Granulocytes % 0.4 %; Immature Granulocytes Absolute 0.02 #; Lymphocytes # 1.6 10*3/uL (1.4-4.0); Lymphocytes % 29.7 % (21.2-54.2); Mean Corpuscular HGB Conc 35.6 GM/DL (32-36); Mean Corpuscular Hemoglobin 29 PG (27-34); Mean Corpuscular Volume 80.9 FL (87-102); Monocytes # 0.5 10*3/uL (0.11-0.8); Monocytes % 9.2 % (1.7-12.7); Neutrophils % 54.9 % (38.7-73.9); Platelet Count 254 T/CUMM (130-400); Red Blood Count 3.82 MC/CUMM (3.8-5.5); Red Cell Distribution Width 14.4 % (9.3-17.3); White Blood Count 5.5 T/CUMM (4-12)
[2016-12-11 06:28] LABS: Calcium 9.2 MG/DL (8.5-10.1); Potassium 3.8 MMOL/L (3.5-5.1)
[2016-12-11] MEDS: DOCUSATE SODIUM 100 MG/10 ML UDCUP PO SCH (09:16)
[2016-12-11] MEDS: PANTOPRAZOLE 40 MG VIAL IV SCH (09:17)
[2016-12-11] MEDS: busPIRone 15 MG TABLET PO SCH (09:17)
[2016-12-11] MEDS: TRIAMTERENE/HCTZ 37.5-25 MG TABLET PO SCH (09:17)
--- NOTE | 2016-12-11 10:27 | General Surgery Progress Note ---
Assessment and Plan - Time spent with patient Time spent with patient: Less than 30 minutes (1) Small bowel obstruction due to adhesions Status: Acute Assessment and plan: 12/10/2016. Small bowel obstruction, improving. The patient is clearly feeling better, hungry, and shows signs clinically of improvement with resolution of obstruction. I will speak with Dr. Haskins before advancing his diet or pulling the NG tube, as they are still quite apprehensive, understandably so given his history. 12/11/2016. His bowel obstruction seems to have resolved. He is able to tolerate full liquids now and is having no nausea, vomiting or other obstructive symptoms. They are planning to go out of town today are tomorrow, and I have once again strongly cautioned him to be very judicious about his dietary choices and bowel habits during the course of his traveling. Hopefully he can avoid any further surgery, and it might be prudent once he returns to speak with his [facility] surgery department or consider speaking with the GI department there regarding some dietary counseling as he seems to precede the episodes of obstruction with what sounds to be a dietary adventure or an overly distended stomach. At any rate I recommended he stick with a modified full liquid to very soft diet, and 6 small "grazing" type meals rather than eating formal sized portions until he's certain his system has adjusted to its normal peristaltic pattern. Current Visit: Yes Subjective Patient reports: Present: feels better, flatus, bowel movement, other (Patient without complaints of pain today. He is tolerating full liquid diet and having bowel movements.). Absent: nausea, vomiting Exam - Constitutional Vitals: Period Temp Pulse Resp BP Sys/Echevarria Pulse Ox Last 24 Hr 97.7 F-98.7 F 67-93 18-22 83-119/52-75 95-100 General appearance: no acute distress - GI/Abdominal GI/Abdominal exam: Present: normal bowel sounds, soft. Absent: tenderness Results - Labs CBC & BMP: 12/11/16 05:38 12/11/16 05:38 Lab Results: I have reviewed the past 24 hour labs Quality Measures - Stroke Symptom Onset Unknown: No
[2016-12-11 12:02] VITALS: BP 110/72
--- NOTE | 2016-12-11 12:47 | Discharge Summary ---
Hospital Course - Hospital Course Hospital Course: Patient came in with partial small bowel obstruction with abdominal pain. He required NG tube suction which was kept on for a few days at which time we had clamped. We did get surgical consult and were able to manage him very conservatively however it did take several days to get this resolved. On the day of discharge she was doing well and was told to eat only pured foods "that he was able to swallow if necessary without even chewing ". He had no abdominal discomfort at all discharge was up getting his bags ready to go and was having no other constitutional complaints either. He is to follow with me in my clinic in approximately a month Diagnosis - Discharge Diagnosis (1) Abdominal pain Status: Acute (2) Hypokalemia Status: Acute (3) Small bowel obstruction Status: Acute (4) Dehydration Status: Acute Discharge Plan - Discharge Data Disposition: Disch To Home/Self Care Condition at Discharge: Stable Discharge Diet: other (liquid to soft grazing type diet per surgery instructions ) Activity: resume usual activities as tolerated Hygiene: no restrictions Weight Bearing at Discharge: full weight bearing Driving: no restrictions Contact your physician if you experience:: Nausea/Vomiting, pain uncontrolled by pain medications - Discharge Medications Continue busPIRone [Buspar] 15 mg PO BID Atomoxetine HCl [Strattera] 10 mg PO DAILY Omeprazole [Prilosec] 20 mg PO BID Triamterene/Hctz 37.5-25 Tab [Maxzide 37.5-25] 1 tablet PO DAILY Discontinued HYDROcodone/ACETAMIN 5-325 [[place] 5-325] 1 tablet PO Q6H PRN #10 tablet PRN Reason: Pain - Follow Up or Referral - Forms/Instructions Instructions: Bowel Obstruction (DC) Exam - Constitutional Vitals: Period Temp Pulse Resp BP Sys/Echevarria Pulse Ox Last 24 Hr 97.7 F-98.7 F 67-93 18-22 83-119/52-75 96-100 Discharge Results Procedures and tests throughout hospitalization: Pending Orders 12/12/16 04:00 BMP [Basic Metabolic Panel] IN AM CBC [Comp Blood Count Auto Diff] IN AM 12/13/16 04:00 BMP [Basic Metabolic Panel] IN AM CBC [Comp Blood Count Auto Diff] IN AM Labs on day of discharge: Labs from last 24 hours 12/11/16 12/11/16 05:38 05:38 WBC 5.5 RBC 3.82 Hgb 11.0 L Hct 30.9 L MCV 80.9 L MCH 29 MCHC 35.6 RDW 14.4 Plt Count 254 MPV 9.0 L Neut % (Auto) 54.9 Lymph % (Auto) 29.7 [place] % (Auto) 9.2 Eos % (Auto) 5.1 Baso % (Auto) 0.7 Neut # (Auto) 3.0 Lymph # (Auto) 1.6 [place] # (Auto) 0.5 Eos # (Auto) 0.3 Baso # (Auto) 0.0 Immature Gran % 0.4 Nucleated RBC % 0.0 Immature Gran # 0.02 Nucleated RBCs # 0.00 Sodium 143 Potassium 3.8 Chloride 106 Carbon Dioxide 30 Anion Gap 10.8 BUN 5 L Creatinine 1.00 GFR Calculation 99 BUN/Creatinine Ratio 5.00 L Glucose 92 Calculated Osmolality 281.0 Calcium 9.2 DS: Provider Date of admission: 12/07/16 04:11 Primary care physician: Yamil Patel DO Attending physician on admission: Yamil Patel DO Consults: 12/07/16 04:12 Consult to Case Mgmt/Social Srvs [CONS] Routine Reason for Case Mgmt/Social Srvs: Discharge Planning 12/07/16 05:20 Consult to Pastoral Services [CONS] Routine Comment: Pastoral Screen: Request [employer] Visit Pastoral Screen Source of Request: Patient 12/07/16 16:09 Consult to Physician [CONS] Routine Comment: Consulting Provider: Doug Murillo Consult to Specialist Group: Surgery When should Consulting Provider be notified: Now Person Notified: DR. MURILLO Date Notified: 12/07/16 Time Notified: 16:24 Consult Notification Comment: SPOKE TO DR. MURILLO VIA CELL-RP Discharging clinician: Yamil Patel DO
--- NOTE | 2016-12-11 15:19 | Family Practice Progress Note ---
Family Practice - PN: Subj Interval history: Patient seen this afternoon. Is doing significantly better. States he is not having any abdominal pain the NG tube is in place and clamped. Has been taking clear liquids without difficulty. Voiding well and is in very good spirits. No flank pain or other constitutional symptoms at this time 12/10/2016: Patient seen this afternoon. Resting well the NG tube is out and is tolerating clear liquids well. Will defer to surgery of the wound to put her on soft diet/pured diet and hopefully can be discharged tomorrow. Exam (Progress Note) - Constitutional Vitals: Period Temp Pulse Resp BP Sys/Echevarria Pulse Ox Last 24 Hr 97.7 F-98.7 F 67-93 18-22 83-119/52-75 96-100 Exam: Generally very stable no acute distress alert and oriented. HEENT reveals equal reactive neck supple trachea midline Cardiovascular rate is regular no gallop or rub 1/6 systolic ejection murmur Lungs clear bilaterally no shortness of breath Abdomen soft nondistended nontender with palpation and/or percussion. He does have positive bowel sounds and admits to having bowel movements. Extremities no clubbing cyanosis or edema neurologically fully intact Results - Labs CBC & BMP: 12/11/16 05:38 12/11/16 05:38 Assessment and Plan (1) Abdominal pain Status: Acute Assessment and plan: 12/09/2016: No abdominal pain at present. He does have bowel movements (2) Hypokalemia Status: Acute Assessment and plan: 12/09/2016: This seems to be resolving. He still has potassium in his IV fluids 40 mEq (3) Small bowel obstruction Status: Acute Assessment and plan: 12/09/2016: Stable hemodynamically and seems that his obstruction is resolving with rest (4) Dehydration Status: Acute Assessment and plan: 12/09/2016: Patient is taking fluids and does not appear to be dehydrated subjectively at present Quality Measures - Stroke Symptom Onset Unknown: No Specialty Discharge - Follow Up or Referrals
== END 2016-12-11 13:45 | disposition home or self-care (01) | DRG 390 ==
LOC: N.ED 21:01 → N.EDINP 12-07 04:11 → N.2E 12-07 04:50
PROVIDERS: ADMIT Family Medicine; ATTEND Family Medicine

== ENCOUNTER 2018-01-15 04:35 | Inpatient (IN) ==
[2018-01-15] MEDS ORDERED: MORPHINE 4 MG/1 ML VIAL IV STA (05:27)
[2018-01-15] MEDS ORDERED: ONDANSETRON 4 MG/2 ML VIAL IV STA (05:27)
[2018-01-15] MEDS ORDERED: SODIUM CHLORIDE 0.9% 1,000 ML IV STA (05:27)
[2018-01-15 06:13] LABS: Eosinophils % 0.6 % (0.00-10.9); Immature Granulocytes % 0.6 %; Immature Granulocytes Absolute 0.03 #; Lymphocytes # 0.3 10*3/uL (1.4-4.0); Lymphocytes % 7.2 % (21.2-54.2); Mean Corpuscular HGB Conc 33.8 GM/DL (32-36); Mean Corpuscular Hemoglobin 31 PG (27-34); Mean Corpuscular Volume 92.4 FL (87-102); Mean Platelet Volume 8.9 FL (9.6-12.0); Monocytes # 0.2 10*3/uL (0.11-0.8); Monocytes % 4.9 % (1.7-12.7); Neutrophils # 4.1 10*3/uL (1.4-7.4); Neutrophils % 86.7 % (38.7-73.9); Platelet Count 114 T/CUMM (130-400); Red Blood Count 1.57 MC/CUMM (3.8-5.5); Red Cell Distribution Width 13.6 % (9.3-17.3); White Blood Count 4.7 T/CUMM (4-12)
[2018-01-15 06:14] LABS: Hemoglobin 4.9 GM/DL (14.0-18.0)
[2018-01-15 06:15] LABS: Hematocrit 14.5 VOL% (42.0-52.0)
[2018-01-15 06:48] LABS: Basophils # 0.1 10*3/uL (0.0-0.2); Basophils % 0.4 % (0.0-0.8); Eosinophils % 0.3 % (0.00-10.9); Hematocrit 44.1 VOL% (42.0-52.0); Immature Granulocytes % 0.6 %; Immature Granulocytes Absolute 0.08 #; Lymphocytes # 0.9 10*3/uL (1.4-4.0); Mean Corpuscular HGB Conc 36.3 GM/DL (32-36); Mean Corpuscular Hemoglobin 31 PG (27-34); Mean Corpuscular Volume 86.1 FL (87-102); Mean Platelet Volume 8.8 FL (9.6-12.0); Monocytes # 0.7 10*3/uL (0.11-0.8); Monocytes % 4.7 % (1.7-12.7); Neutrophils # 12.5 10*3/uL (1.4-7.4); Platelet Count 368 T/CUMM (130-400); Red Blood Count 5.12 MC/CUMM (3.8-5.5); Red Cell Distribution Width 13.3 % (9.3-17.3); White Blood Count 14.2 T/CUMM (4-12)
[2018-01-15 07:10] LABS: Albumin 4.8 G/DL (3.4-5.0); Bilirubin,Total 4.3 MG/DL (0.2-1.0); Calcium 10.7 MG/DL (8.5-10.1); Potassium 2.7 MMOL/L (3.5-5.1); Total Protein 8.8 G/DL (6.4-8.3)
[2018-01-15] MEDS ORDERED: ONDANSETRON 4 MG/2 ML VIAL IV PRN (08:00)
[2018-01-15] MEDS ORDERED: DEXTROSE 5% NACL 0.45% 1,000 ML IV SCH (08:00)
[2018-01-15] MEDS ORDERED: ACETAMINOPHEN 325 MG TABLET PO PRN (08:00)
[2018-01-15] MEDS ORDERED: MORPHINE 4 MG/1 ML VIAL IV PRN (08:00)
[2018-01-15] MEDS: ENOXAPARIN 40 MG/0.4 ML SYRINGE SUBCUT SCH (08:10)
[2018-01-15] MEDS: PANTOPRAZOLE 40 MG VIAL IV SCH (09:31)
[2018-01-15] MEDS: DEXT 5% NACL 0.45% KCL 40 MEQ 40 MEQ/1,000 ML BAG IV SCH (09:31)
[2018-01-15] MEDS: DOCUSATE SODIUM 100 MG CAPSULE PO SCH ×2 (09:34→20:53)
[2018-01-15] MEDS: POTASSIUM CHLORIDE RIDER 10 MEQ in PREMIX 1 EACH IV PRN ×5 (11:56→23:40)
[2018-01-15 12:50] LABS: Apearance,Urine CLEAR (Clear); Bilirubin,Urine Negative (Negative); Blood, Urine Moderate mg/dL (Negative); Glucose,Urine (UA) Negative (Negative); Hyaline Casts,Urine 7 /LPF (0-3); Ketones,Urine Negative (Negative); Mucus,Urine Occasional /LPF (Occasional); Nitrite,Urine Negative (Negative); Protein,Urine 30 MG/DL; RBC,Urine 1 /HPF (0-4); Urine Color Yellow (Yellow); Urine Specific Gravity 1.014 (1.001-1.035); Urine Urobilinogen < 2.0 EU/DL (0.2-1.0); WBC,Urine 3 /HPF (0-6)
[2018-01-15 16:32] LABS: Calcium 9.1 MG/DL (8.5-10.1); Osmolality,Calculated 276.8 MOS/KG (273-304); Potassium 3.4 MMOL/L (3.5-5.1)
[2018-01-16] MEDS: DEXT 5% NACL 0.45% KCL 40 MEQ 40 MEQ/1,000 ML BAG IV SCH ×4 (00:58→19:08)
[2018-01-16 06:03] LABS: Basophils % 0.5 % (0.0-0.8); Eosinophils # 0.2 10*3/uL (0.0-0.87); Eosinophils % 3.7 % (0.00-10.9); Hematocrit 34.4 VOL% (42.0-52.0); Hemoglobin 12.5 GM/DL (14.0-18.0); Immature Granulocytes % 0.3 %; Immature Granulocytes Absolute 0.02 #; Lymphocytes # 1.4 10*3/uL (1.4-4.0); Lymphocytes % 23.4 % (21.2-54.2); Mean Corpuscular HGB Conc 36.3 GM/DL (32-36); Mean Corpuscular Hemoglobin 31 PG (27-34); Mean Platelet Volume 9.1 FL (9.6-12.0); Monocytes # 0.8 10*3/uL (0.11-0.8); Monocytes % 12.4 % (1.7-12.7); Neutrophils # 3.7 10*3/uL (1.4-7.4); Neutrophils % 59.7 % (38.7-73.9); Platelet Count 275 T/CUMM (130-400); Red Cell Distribution Width 13.5 % (9.3-17.3); White Blood Count 6.2 T/CUMM (4-12)
[2018-01-16 06:29] LABS: Albumin 3.1 G/DL (3.4-5.0); Bilirubin,Total 4.6 MG/DL (0.2-1.0); Calcium 8.1 MG/DL (8.5-10.1); Osmolality,Calculated 285.1 MOS/KG (273-304); Potassium 3.1 MMOL/L (3.5-5.1); Total Protein 5.9 G/DL (6.4-8.3)
[2018-01-16 06:34] LABS: Albumin 3.1 G/DL (3.4-5.0); Bilirubin,Direct 0.21 MG/DL (0.0-0.20); Bilirubin,Indirect 4.2 MG/DL (0.0-1.0); Bilirubin,Total 4.4 MG/DL (0.2-1.0)
[2018-01-16] MEDS: POTASSIUM CHLORIDE RIDER 10 MEQ in PREMIX 1 EACH IV PRN ×2 (07:44→08:56)
[2018-01-16] MEDS: DOCUSATE SODIUM 100 MG CAPSULE PO SCH ×2 (08:48→21:10)
[2018-01-16] MEDS: PANTOPRAZOLE 40 MG VIAL IV SCH (08:51)
[2018-01-16] MEDS: ENOXAPARIN 40 MG/0.4 ML SYRINGE SUBCUT SCH (08:54)
[2018-01-16] MEDS: POTASSIUM CHLORIDE 20 MEQ TABLET PO PRN ×3 (10:39→15:02)
[2018-01-17] MEDS: DEXT 5% NACL 0.45% KCL 40 MEQ 40 MEQ/1,000 ML BAG IV SCH ×3 (03:10→22:46)
[2018-01-17] MEDS ORDERED: SODIUM CHLORIDE 0.9% 500 ML IV ONE (04:19)
[2018-01-17 06:41] LABS: Basophils % 0.7 % (0.0-0.8); Eosinophils # 0.2 10*3/uL (0.0-0.87); Eosinophils % 3.9 % (0.00-10.9); Hematocrit 32.2 VOL% (42.0-52.0); Hemoglobin 11.4 GM/DL (14.0-18.0); Immature Granulocytes % 0.5 %; Immature Granulocytes Absolute 0.02 #; Lymphocytes # 1.1 10*3/uL (1.4-4.0); Lymphocytes % 25.5 % (21.2-54.2); Mean Corpuscular HGB Conc 35.4 GM/DL (32-36); Mean Corpuscular Hemoglobin 31 PG (27-34); Mean Corpuscular Volume 87.5 FL (87-102); Mean Platelet Volume 9.1 FL (9.6-12.0); Monocytes # 0.4 10*3/uL (0.11-0.8); Monocytes % 10.2 % (1.7-12.7); Neutrophils # 2.4 10*3/uL (1.4-7.4); Neutrophils % 59.2 % (38.7-73.9); Platelet Count 240 T/CUMM (130-400); Red Blood Count 3.68 MC/CUMM (3.8-5.5); Red Cell Distribution Width 13.6 % (9.3-17.3); White Blood Count 4.1 T/CUMM (4-12)
[2018-01-17 06:49] LABS: Calcium 8.3 MG/DL (8.5-10.1); Osmolality,Calculated 280.3 MOS/KG (273-304); Potassium 3.9 MMOL/L (3.5-5.1)
[2018-01-17] MEDS: ENOXAPARIN 40 MG/0.4 ML SYRINGE SUBCUT SCH (09:23)
[2018-01-17] MEDS: PANTOPRAZOLE 40 MG VIAL IV SCH (09:25)
[2018-01-17] MEDS ORDERED: MAGNESIUM SULF RIDER 2 GM in PREMIX 1 EACH IV ONE (10:00)
[2018-01-17] MEDS: DOCUSATE SODIUM 100 MG CAPSULE PO SCH ×2 (10:22→22:31)
[2018-01-18 07:45] VITALS: BP 105/48
[2018-01-18] MEDS ORDERED: POTASSIUM CHLORIDE 20 MEQ TABLET PO SCH (09:00)
[2018-01-18] MEDS: DEXT 5% NACL 0.45% KCL 40 MEQ 40 MEQ/1,000 ML BAG IV SCH (09:39)
[2018-01-18] MEDS: DOCUSATE SODIUM 100 MG CAPSULE PO SCH (10:38)
[2018-01-18] MEDS: ENOXAPARIN 40 MG/0.4 ML SYRINGE SUBCUT SCH (10:38)
[2018-01-18] MEDS: PANTOPRAZOLE 40 MG VIAL IV SCH (10:39)
[2018-01-18] MEDS ORDERED: MAGNESIUM CHLORIDE 64 MG TABLET PO ONE (11:00)
== END 2018-01-18 11:08 | disposition home or self-care (01) | DRG 392 ==
LOC: N.ED 04:35 → N.EDINP 08:00 → N.2E 08:56
PROVIDERS: ADMIT Family Medicine; ATTEND Family Medicine

== ENCOUNTER 2018-02-19 08:37 | Inpatient (IN) ==
[2018-02-19] MEDS ORDERED: SODIUM CHLORIDE 0.9% 1,000 ML IV STA (09:20)
[2018-02-19 10:20] LABS: Albumin 5.7 G/DL (3.4-5.0); Bilirubin,Total 5.2 MG/DL (0.2-1.0); Calcium 11.9 MG/DL (8.5-10.1); Osmolality,Calculated 277.1 MOS/KG (273-304); Total Protein 10.4 G/DL (6.4-8.3)
[2018-02-19 10:25] LABS: Apearance,Urine CLEAR (Clear); Bilirubin,Urine Negative (Negative); Blood, Urine Small mg/dL (Negative); Glucose,Urine (UA) Negative (Negative); Ketones,Urine Negative (Negative); Mucus,Urine Occasional /LPF (Occasional); Nitrite,Urine Negative (Negative); Protein,Urine 30 MG/DL; RBC,Urine 1 /HPF (0-4); Squamous Epithelial Cell,Urine Occasional /HPF (0-10); Urine Color Yellow (Yellow); Urine Specific Gravity 1.027 (1.001-1.035); Urine Urobilinogen < 2.0 EU/DL (0.2-1.0); WBC,Urine 6 /HPF (0-6)
[2018-02-19 10:44] LABS: Basophils # 0.1 10*3/uL (0.0-0.2); Basophils % 0.5 % (0.0-0.8); Eosinophils # 0.1 10*3/uL (0.0-0.87); Eosinophils % 0.5 % (0.00-10.9); Hematocrit 49.4 VOL% (42.0-52.0); Hemoglobin 17.8 GM/DL (14.0-18.0); Immature Granulocytes % 0.5 %; Immature Granulocytes Absolute 0.07 #; Lymphocytes # 1.3 10*3/uL (1.4-4.0); Lymphocytes % 8.5 % (21.2-54.2); Mean Corpuscular Hemoglobin 31 PG (27-34); Mean Corpuscular Volume 85.5 FL (87-102); Mean Platelet Volume 9.4 FL (9.6-12.0); Monocytes # 1.1 10*3/uL (0.11-0.8); Monocytes % 7.1 % (1.7-12.7); Neutrophils # 12.9 10*3/uL (1.4-7.4); Neutrophils % 82.9 % (38.7-73.9); Platelet Count 443 T/CUMM (130-400); Red Blood Count 5.78 MC/CUMM (3.8-5.5); Red Cell Distribution Width 13.2 % (9.3-17.3); White Blood Count 15.5 T/CUMM (4-12)
[2018-02-19] MEDS ORDERED: ONDANSETRON 4 MG/2 ML VIAL IV PRN (11:42)
[2018-02-19] MEDS ORDERED: MORPHINE 4 MG/1 ML VIAL IV PRN (11:42)
[2018-02-19] MEDS ORDERED: SODIUM CHLORIDE 0.9% 1,000 ML IV ONE (11:48)
[2018-02-19] MEDS ORDERED: PROMETHAZINE 25 MG/1 ML VIAL IM STA (11:52)
[2018-02-19] MEDS: DEXTROSE 5% LACTATED RINGERS 1,000 ML IV SCH (17:52)
[2018-02-20] MEDS: DEXTROSE 5% LACTATED RINGERS 1,000 ML IV SCH ×3 (02:45→13:34)
[2018-02-20 06:30] LABS: Basophils % 0.6 % (0.0-0.8); Eosinophils # 0.3 10*3/uL (0.0-0.87); Eosinophils % 4.6 % (0.00-10.9); Hematocrit 41.7 VOL% (42.0-52.0); Hemoglobin 15.1 GM/DL (14.0-18.0); Immature Granulocytes % 0.2 %; Immature Granulocytes Absolute 0.01 #; Lymphocytes # 1.9 10*3/uL (1.4-4.0); Lymphocytes % 30.4 % (21.2-54.2); Mean Corpuscular HGB Conc 36.2 GM/DL (32-36); Mean Corpuscular Hemoglobin 31 PG (27-34); Mean Corpuscular Volume 85.1 FL (87-102); Mean Platelet Volume 9.2 FL (9.6-12.0); Monocytes # 1.2 10*3/uL (0.11-0.8); Monocytes % 18.7 % (1.7-12.7); Neutrophils # 2.9 10*3/uL (1.4-7.4); Neutrophils % 45.5 % (38.7-73.9); Platelet Count 339 T/CUMM (130-400); Red Cell Distribution Width 13.4 % (9.3-17.3); White Blood Count 6.3 T/CUMM (4-12)
[2018-02-20 07:00] LABS: Bilirubin,Total 5.4 MG/DL (0.2-1.0); Calcium 9.4 MG/DL (8.5-10.1); Osmolality,Calculated 291.1 MOS/KG (273-304); Potassium 2.9 MMOL/L (3.5-5.1); Total Protein 7.7 G/DL (6.4-8.3)
[2018-02-20] MEDS ORDERED: PANTOPRAZOLE 40 MG TABLET PO SCH (09:00)
[2018-02-20 14:57] LABS: Band Neutrophils 1 % (0-10); Eosinophils 2 % (0-10); Lymphocytes 26 % (20-55); Segmented Neutrophils 46 % (50-85); Total Cells Counted 100
[2018-02-20 14:58] LABS: Macrocytosis Slight; Platelet Estimate Adequate
[2018-02-20] MEDS: POTASSIUM CHLORIDE RIDER 10 MEQ in PREMIX 1 EACH IV PRN ×4 (16:24→22:40)
[2018-02-20] MEDS: PANTOPRAZOLE 40 MG VIAL IV SCH (22:54)
[2018-02-20] MEDS: ENOXAPARIN 40 MG/0.4 ML SYRINGE SUBCUT SCH (22:54)
[2018-02-21] MEDS: DEXTROSE 5% LACTATED RINGERS 1,000 ML IV SCH ×2 (07:35→18:40)
[2018-02-21] MEDS: POTASSIUM CHLORIDE 20 MEQ TABLET PO PRN ×4 (15:35→22:18)
[2018-02-21] MEDS: PANTOPRAZOLE 40 MG VIAL IV SCH ×2 (20:06→20:07)
[2018-02-21] MEDS: ENOXAPARIN 40 MG/0.4 ML SYRINGE SUBCUT SCH (20:06)
[2018-02-22] MEDS: POTASSIUM CHLORIDE 20 MEQ TABLET PO PRN ×2 (08:33→11:02)
[2018-02-22 12:00] VITALS: BP 105/68
[2018-02-22] MEDS ORDERED: POTASSIUM CHLORIDE 20 MEQ TABLET PO ONE (14:32)
== END 2018-02-22 15:14 | disposition home or self-care (01) | DRG 389 ==
LOC: N.ED 08:37 → N.EDINP 11:42 → N.5E 13:22
PROVIDERS: ADMIT Surgery; ATTEND Surgery

== ENCOUNTER 2018-03-05 18:43 | Inpatient (IN) ==
[2018-03-05] MEDS ORDERED: MORPHINE 4 MG/1 ML VIAL IV STA (21:05)
[2018-03-05] MEDS ORDERED: ONDANSETRON 4 MG/2 ML VIAL IV STA (21:05)
[2018-03-05] MEDS ORDERED: SODIUM CHLORIDE 0.9% 1,000 ML IV STA (21:05)
[2018-03-05 21:57] LABS: Albumin 4.7 G/DL (3.4-5.0); Calcium 10.8 MG/DL (8.5-10.1); Osmolality,Calculated 271.2 MOS/KG (273-304); Potassium 2.8 MMOL/L (3.5-5.1)
[2018-03-05 22:10] LABS: Basophils # 0.1 10*3/uL (0.0-0.2); Basophils % 0.4 % (0.0-0.8); Eosinophils # 0.1 10*3/uL (0.0-0.87); Eosinophils % 0.6 % (0.00-10.9); Hematocrit 46.7 VOL% (42.0-52.0); Immature Granulocytes % 0.5 %; Immature Granulocytes Absolute 0.08 #; Lymphocytes # 1.7 10*3/uL (1.4-4.0); Lymphocytes % 9.6 % (21.2-54.2); Mean Corpuscular HGB Conc 36.4 GM/DL (32-36); Mean Corpuscular Hemoglobin 31 PG (27-34); Mean Corpuscular Volume 85.1 FL (87-102); Mean Platelet Volume 8.9 FL (9.6-12.0); Monocytes # 1.1 10*3/uL (0.11-0.8); Monocytes % 6.2 % (1.7-12.7); Neutrophils # 14.2 10*3/uL (1.4-7.4); Neutrophils % 82.7 % (38.7-73.9); Platelet Count 478 T/CUMM (130-400); Red Blood Count 5.49 MC/CUMM (3.8-5.5); Red Cell Distribution Width 12.9 % (9.3-17.3); White Blood Count 17.1 T/CUMM (4-12)
[2018-03-05] MEDS ORDERED: MORPHINE 10 MG/1 ML VIAL IV PRN (22:57)
[2018-03-05] MEDS ORDERED: ONDANSETRON 4 MG/2 ML VIAL IV PRN (22:57)
[2018-03-06] MEDS: DEXTROSE 5% LACTATED RINGERS 1,000 ML IV SCH ×4 (01:45→18:22)
[2018-03-06] MEDS: POTASSIUM CHLORIDE RIDER 10 MEQ in PREMIX 1 EACH IV PRN ×11 (01:45→23:00)
[2018-03-06 06:28] LABS: Basophils % 0.3 % (0.0-0.8); Eosinophils # 0.2 10*3/uL (0.0-0.87); Eosinophils % 1.5 % (0.00-10.9); Hematocrit 39.8 VOL% (42.0-52.0); Hemoglobin 14.4 GM/DL (14.0-18.0); Immature Granulocytes % 0.4 %; Immature Granulocytes Absolute 0.05 #; Lymphocytes # 2.3 10*3/uL (1.4-4.0); Lymphocytes % 17.3 % (21.2-54.2); Mean Corpuscular HGB Conc 36.2 GM/DL (32-36); Mean Corpuscular Hemoglobin 31 PG (27-34); Mean Corpuscular Volume 86.1 FL (87-102); Mean Platelet Volume 9.6 FL (9.6-12.0); Monocytes # 1.1 10*3/uL (0.11-0.8); Neutrophils # 9.7 10*3/uL (1.4-7.4); Neutrophils % 72.5 % (38.7-73.9); Platelet Count 352 T/CUMM (130-400); Red Blood Count 4.62 MC/CUMM (3.8-5.5); Red Cell Distribution Width 13.3 % (9.3-17.3); White Blood Count 13.4 T/CUMM (4-12)
[2018-03-06] MEDS ORDERED: PANTOPRAZOLE 40 MG TABLET PO SCH (09:00)
[2018-03-06] MEDS: PANTOPRAZOLE 40 MG VIAL IV SCH (10:04)
[2018-03-07] MEDS: POTASSIUM CHLORIDE RIDER 10 MEQ in PREMIX 1 EACH IV PRN ×4 (00:23→06:00)
[2018-03-07] MEDS: DEXTROSE 5% LACTATED RINGERS 1,000 ML IV SCH ×2 (01:41→09:00)
[2018-03-07 05:28] LABS: Basophils % 0.4 % (0.0-0.8); Eosinophils # 0.2 10*3/uL (0.0-0.87); Eosinophils % 4.6 % (0.00-10.9); Hematocrit 31.1 VOL% (42.0-52.0); Immature Granulocytes % 0.4 %; Immature Granulocytes Absolute 0.02 #; Lymphocytes # 1.4 10*3/uL (1.4-4.0); Lymphocytes % 29.4 % (21.2-54.2); Mean Corpuscular HGB Conc 35.7 GM/DL (32-36); Mean Corpuscular Hemoglobin 31 PG (27-34); Mean Corpuscular Volume 86.6 FL (87-102); Mean Platelet Volume 8.9 FL (9.6-12.0); Monocytes # 0.6 10*3/uL (0.11-0.8); Monocytes % 12.4 % (1.7-12.7); Neutrophils # 2.4 10*3/uL (1.4-7.4); Neutrophils % 52.8 % (38.7-73.9)
[2018-03-07 05:30] LABS: Hemoglobin 11.1 GM/DL (14.0-18.0); Platelet Count 277 T/CUMM (130-400); Red Blood Count 3.59 MC/CUMM (3.8-5.5); White Blood Count 4.6 T/CUMM (4-12)
[2018-03-07 05:52] LABS: Calcium 8.6 MG/DL (8.5-10.1); Osmolality,Calculated 276.5 MOS/KG (273-304); Potassium 3.4 MMOL/L (3.5-5.1)
[2018-03-07] MEDS: PANTOPRAZOLE 40 MG VIAL IV SCH (08:52)
[2018-03-07] MEDS ORDERED: POTASSIUM CHLORIDE 20 MEQ TABLET PO PRN (16:20)
[2018-03-07 18:25] VITALS: BP 104/63
== END 2018-03-07 18:38 | disposition home or self-care (01) | DRG 392 ==
LOC: N.ED 18:43 → N.EDINP 22:57 → N.3E 23:29
PROVIDERS: ADMIT Surgery; ATTEND Surgery

== ENCOUNTER 2019-08-13 13:21 | Inpatient (IN) ==
[2019-08-13] MEDS ORDERED: HYDROmorphone 2 MG/1 ML VIAL IV STA (13:49)
[2019-08-13] MEDS ORDERED: ONDANSETRON 4 MG/2 ML VIAL IV STA (13:49)
[2019-08-13] MEDS ORDERED: SODIUM CHLORIDE 0.9% 2,000 ML IV STA (13:49)
[2019-08-13 14:54] LABS: Basophils # 0.1 10*3/uL (0.0-0.2); Basophils % 0.4 % (0.0-0.8); Eosinophils # 0.1 10*3/uL (0.0-0.87); Eosinophils % 0.5 % (0.00-10.9); Hematocrit 49.5 VOL% (42.0-52.0); Hemoglobin 17.7 GM/DL (14.0-18.0); Immature Granulocytes % 0.5 %; Immature Granulocytes Absolute 0.07 #; Lymphocytes # 1.3 10*3/uL (1.4-4.0); Lymphocytes % 8.7 % (21.2-54.2); Mean Corpuscular HGB Conc 35.8 GM/DL (32-36); Mean Corpuscular Volume 88.4 FL (87-102); Mean Platelet Volume 8.8 FL (9.6-12.0); Monocytes % 9.9 % (1.7-12.7); Platelet Count 441 T/CUMM (130-400); Red Cell Distribution Width 13.5 % (9.3-17.3); White Blood Count 15.4 T/CUMM (4-12)
[2019-08-13 15:17] LABS: Albumin 4.8 G/DL (3.4-5.0); Bilirubin,Total 4.7 MG/DL (0.2-1.0); Osmolality,Calculated 273.9 MOS/KG (273-304); Total Protein 9.3 G/DL (6.4-8.3)
[2019-08-13] MEDS ORDERED: HYDROmorphone 2 MG/1 ML VIAL IV PRN (16:00)
[2019-08-13] MEDS ORDERED: ONDANSETRON 4 MG/2 ML VIAL IV PRN (16:00)
[2019-08-13] MEDS ORDERED: DEXTROSE 5% NACL 0.45% 1,000 ML IV SCH (16:00)
[2019-08-13] MEDS ORDERED: ACETAMINOPHEN 325 MG TABLET PO PRN (16:00)
[2019-08-13] MEDS ORDERED: DIPHENOXYLATE/ATROPINE 2.5-0.025 MG TABLET PO PRN (16:05)
[2019-08-13 18:26] LABS: Apearance,Urine CLEAR (Clear); Bilirubin,Urine Negative (Negative); Blood, Urine Small mg/dL (Negative); Glucose,Urine (UA) >=500 mg/dL (Negative); Ketones,Urine Negative (Negative); Nitrite,Urine Negative (Negative); Protein,Urine Negative; RBC,Urine 1 /HPF (0-4); Squamous Epithelial Cell,Urine Occasional /HPF (0-10); Urine Color Yellow (Yellow); Urine Specific Gravity 1.012 (1.001-1.035); Urine Urobilinogen < 2.0 EU/DL (0.2-1.0); WBC,Urine 1 /HPF (0-6)
[2019-08-13] MEDS ORDERED: POTASSIUM CHLORIDE 20 MEQ TABLET PO ONE (19:27)
[2019-08-13] MEDS ORDERED: MAGNESIUM SULF RIDER 2 GM in PREMIX 1 EACH IV ONE (19:32)
[2019-08-13] MEDS: ATOMOXETINE 40 MG PO SCH (20:36)
[2019-08-13] MEDS: SODIUM CHLORIDE 0.9% 1,000 ML IV SCH (20:36)
[2019-08-13] MEDS: PANTOPRAZOLE 40 MG TABLET PO SCH (20:37)
[2019-08-13] MEDS: DOCUSATE SODIUM 100 MG CAPSULE PO SCH (20:37)
[2019-08-13] MEDS ORDERED: ENOXAPARIN 30 MG/0.3 ML SYRINGE SUBCUT SCH (21:00)
[2019-08-13] MEDS ORDERED: cefTRIAXone 500 MG in SYRINGE 1 EACH IV SCH (21:00)
[2019-08-13] MEDS: POTASSIUM CHLORIDE 20 MEQ TABLET PO SCH (21:14)
[2019-08-14 07:23] LABS: Albumin 3.6 G/DL (3.4-5.0); Bilirubin,Total 3.8 MG/DL (0.2-1.0); Calcium 8.9 MG/DL (8.5-10.1); Osmolality,Calculated 269.2 MOS/KG (273-304); Total Protein 7.4 G/DL (6.4-8.3)
[2019-08-14 07:26] LABS: Basophils % 0.5 % (0.0-0.8); Eosinophils # 0.2 10*3/uL (0.0-0.87); Eosinophils % 3.1 % (0.00-10.9); Hematocrit 42.2 VOL% (42.0-52.0); Immature Granulocytes % 0.3 %; Immature Granulocytes Absolute 0.02 #; Lymphocytes # 2.1 10*3/uL (1.4-4.0); Lymphocytes % 27.5 % (21.2-54.2); Mean Corpuscular Volume 88.3 FL (87-102); Mean Platelet Volume 8.9 FL (9.6-12.0); Monocytes % 21.5 % (1.7-12.7); Neutrophils % 47.1 % (38.7-73.9); Platelet Count 363 T/CUMM (130-400); Red Blood Count 4.78 MC/CUMM (3.8-5.5); Red Cell Distribution Width 13.8 % (9.3-17.3)
[2019-08-14 07:27] LABS: White Blood Count 7.7 T/CUMM (4-12)
[2019-08-14 07:28] LABS: Hemoglobin 15.2 GM/DL (14.0-18.0)
[2019-08-14 07:44] LABS: Band Neutrophils 6 % (0-10); Eosinophils 5 % (0-10); Lymphocytes 32 % (20-55); Platelet Estimate Adequate; Segmented Neutrophils 41 % (50-85); Total Cells Counted 100
[2019-08-14 07:45] LABS: Hypochromasia 1+
[2019-08-14] MEDS: PANTOPRAZOLE 40 MG TABLET PO SCH (08:46)
[2019-08-14] MEDS: ATOMOXETINE 40 MG PO SCH (08:46)
[2019-08-14] MEDS: POTASSIUM CHLORIDE 20 MEQ TABLET PO SCH (08:46)
[2019-08-14] MEDS: DOCUSATE SODIUM 100 MG CAPSULE PO SCH (08:49)
[2019-08-14] MEDS: SODIUM CHLORIDE 0.9% 1,000 ML IV SCH (08:50)
[2019-08-14] MEDS ORDERED: MULTIVITAMIN (CENTRUM) TABLET PO SCH (09:00)
[2019-08-14] MEDS ORDERED: buPROPion XL 150 MG TABLET PO SCH (09:00)
[2019-08-14] MEDS ORDERED: TRIAMTERENE/HCTZ 75-50 MG TABLET PO SCH (09:00)
[2019-08-14] MEDS ORDERED: PANTOPRAZOLE 40 MG TABLET PO SCH (09:00)
[2019-08-14 11:49] VITALS: BP 113/83
[2019-08-14] MEDS ORDERED: ENOXAPARIN 40 MG/0.4 ML SYRINGE SUBCUT SCH (21:00)
== END 2019-08-14 16:22 | disposition home or self-care (01) | DRG 392 ==
LOC: N.ED 13:21 → N.EDINP 16:00 → N.2E 16:44
PROVIDERS: ADMIT Family Medicine; ATTEND Family Medicine

== ENCOUNTER 2019-10-29 07:54 | Inpatient (IN) ==
[2019-10-29] MEDS ORDERED: ONDANSETRON 4 MG/2 ML VIAL IV STA (09:20)
[2019-10-29] MEDS ORDERED: HYDROmorphone 2 MG/1 ML VIAL IV STA (09:20)
[2019-10-29] MEDS ORDERED: HYDROmorphone 2 MG/1 ML VIAL ONE (09:22)
[2019-10-29 09:47] LABS: Albumin 4.9 G/DL (3.4-5.0); Bilirubin,Total 5.1 MG/DL (0.2-1.0); Calcium 11.5 MG/DL (8.5-10.1); Osmolality,Calculated 266.7 MOS/KG (273-304); Total Protein 9.7 G/DL (6.4-8.3)
[2019-10-29] MEDS ORDERED: SODIUM CHLORIDE 0.9% 1,000 ML IV STA (10:38)
[2019-10-29 10:43] LABS: Basophils % 0.2 % (0.0-0.8); Eosinophils # 0.1 10*3/uL (0.0-0.87); Hematocrit 50.4 VOL% (42.0-52.0); Hemoglobin 18.5 GM/DL (14.0-18.0); Immature Granulocytes % 0.4 %; Immature Granulocytes Absolute 0.05 #; Lymphocytes # 1.6 10*3/uL (1.4-4.0); Lymphocytes % 13.4 % (21.2-54.2); Mean Corpuscular HGB Conc 36.7 GM/DL (32-36); Mean Corpuscular Volume 85.6 FL (87-102); Monocytes % 10.5 % (1.7-12.7); Neutrophils % 74.5 % (38.7-73.9); Platelet Count 470 T/CUMM (130-400); Red Blood Count 5.89 MC/CUMM (3.8-5.5); Red Cell Distribution Width 13.1 % (9.3-17.3); White Blood Count 12.2 T/CUMM (4-12)
[2019-10-29] MEDS ORDERED: MORPHINE 4 MG/1 ML VIAL IV PRN (11:11)
[2019-10-29] MEDS ORDERED: ONDANSETRON 4 MG/2 ML VIAL IV PRN (11:11)
[2019-10-29] MEDS ORDERED: ACETAMINOPHEN 325 MG TABLET PO PRN (11:11)
[2019-10-29 12:19] LABS: Apearance,Urine CLEAR (Clear); Bilirubin,Urine Negative (Negative); Blood, Urine Small mg/dL (Negative); Glucose,Urine (UA) Negative (Negative); Hyaline Casts,Urine 1 /LPF (0-3); Ketones,Urine Negative (Negative); Nitrite,Urine Negative (Negative); Protein,Urine Negative; RBC,Urine 3 /HPF (0-4); Sperm,Urine Moderate /HPF (Negative); Urine Color Yellow (Yellow); Urine Specific Gravity 1.053 (1.001-1.035); Urine Urobilinogen < 2.0 EU/DL (0.2-1.0); WBC,Urine 1 /HPF (0-6)
[2019-10-29] MEDS: SODIUM CHLORIDE 0.9% 1,000 ML IV SCH ×2 (14:30→22:35)
[2019-10-29] MEDS ORDERED: PANTOPRAZOLE 40 MG VIAL IV ONE (14:39)
[2019-10-29] MEDS: ENOXAPARIN 40 MG/0.4 ML SYRINGE SUBCUT SCH (22:20)
[2019-10-29] MEDS: DOCUSATE SODIUM 100 MG CAPSULE PO SCH (22:35)
[2019-10-30] MEDS: SODIUM CHLORIDE 0.9% 1,000 ML IV SCH ×2 (06:31→12:10)
[2019-10-30 06:58] LABS: Basophils % 0.4 % (0.0-0.8); Eosinophils # 0.2 10*3/uL (0.0-0.87); Eosinophils % 2.2 % (0.00-10.9); Hematocrit 42.8 VOL% (42.0-52.0); Hemoglobin 15.4 GM/DL (14.0-18.0); Immature Granulocytes % 0.4 %; Immature Granulocytes Absolute 0.03 #; Lymphocytes # 1.9 10*3/uL (1.4-4.0); Lymphocytes % 23.7 % (21.2-54.2); Mean Corpuscular Volume 87.3 FL (87-102); Mean Platelet Volume 8.8 FL (9.6-12.0); Monocytes % 17.3 % (1.7-12.7); Platelet Count 344 T/CUMM (130-400); Red Cell Distribution Width 13.2 % (9.3-17.3); White Blood Count 7.8 T/CUMM (4-12)
[2019-10-30 07:21] LABS: Calcium 10.3 MG/DL (8.5-10.1); Osmolality,Calculated 269.4 MOS/KG (273-304)
[2019-10-30 07:29] LABS: Band Neutrophils 1 % (0-10); Eosinophils 1 % (0-10); Lymphocytes 35 % (20-55); Microcytosis Slight; Platelet Estimate Adequate; Segmented Neutrophils 46 % (50-85); Total Cells Counted 100
[2019-10-30] MEDS ORDERED: MAGNESIUM SULF RIDER 2 GM in PREMIX 1 EACH IV PRN (10:55)
[2019-10-30] MEDS ORDERED: MAGNESIUM SULF RIDER 4 GM in PREMIX 1 EACH IV PRN (10:55)
[2019-10-30] MEDS: PANTOPRAZOLE 40 MG TABLET PO SCH (12:05)
[2019-10-30] MEDS: DOCUSATE SODIUM 100 MG CAPSULE PO SCH ×2 (12:09→20:29)
[2019-10-30] MEDS: POTASSIUM CHLORIDE RIDER 10 MEQ in PREMIX 1 EACH IV PRN ×4 (12:10→17:50)
[2019-10-30] MEDS: POTASSIUM CHLORIDE 20 MEQ TABLET PO SCH (20:28)
[2019-10-30] MEDS: ENOXAPARIN 40 MG/0.4 ML SYRINGE SUBCUT SCH (20:30)
[2019-10-31 05:25] LABS: Basophils % 0.6 % (0.0-0.8); Eosinophils # 0.2 10*3/uL (0.0-0.87); Eosinophils % 3.4 % (0.00-10.9); Hemoglobin 11.4 GM/DL (14.0-18.0); Immature Granulocytes % 0.4 %; Immature Granulocytes Absolute 0.02 #; Lymphocytes # 1.3 10*3/uL (1.4-4.0); Lymphocytes % 26.2 % (21.2-54.2); Mean Corpuscular HGB Conc 34.5 GM/DL (32-36); Mean Corpuscular Volume 90.4 FL (87-102); Mean Platelet Volume 8.9 FL (9.6-12.0); Monocytes % 18.3 % (1.7-12.7); Neutrophils % 51.1 % (38.7-73.9); Platelet Count 242 T/CUMM (130-400); Red Blood Count 3.65 MC/CUMM (3.8-5.5); Red Cell Distribution Width 13.2 % (9.3-17.3)
[2019-10-31 05:56] LABS: Albumin 2.8 G/DL (3.4-5.0); Bilirubin,Total 2.8 MG/DL (0.2-1.0); Calcium 8.1 MG/DL (8.5-10.1); Osmolality,Calculated 273.8 MOS/KG (273-304); Total Protein 5.8 G/DL (6.4-8.3)
[2019-10-31 06:01] LABS: Atypical Lymphocytes Few; Band Neutrophils 3 % (0-10); Eosinophils 5 % (0-10); Lymphocytes 23 % (20-55); Segmented Neutrophils 54 % (50-85); Total Cells Counted 100
[2019-10-31 06:02] LABS: Microcytosis Slight; Platelet Estimate Normal
[2019-10-31] MEDS ORDERED: buPROPion XL 150 MG TABLET PO SCH (09:00)
[2019-10-31] MEDS: DOCUSATE SODIUM 100 MG CAPSULE PO SCH (09:38)
[2019-10-31] MEDS: PANTOPRAZOLE 40 MG TABLET PO SCH (09:38)
[2019-10-31] MEDS: POTASSIUM CHLORIDE 20 MEQ TABLET PO SCH (09:38)
[2019-10-31 16:15] VITALS: BP 98/64
== END 2019-10-31 16:44 | disposition home or self-care (01) | DRG 389 ==
LOC: N.ED 07:54 → N.EDINP 11:11 → N.3E 13:36
PROVIDERS: ADMIT Family Medicine; ATTEND Family Medicine

== ENCOUNTER 2020-02-05 18:28 | Observation (INO) ==
[2020-02-05] MEDS ORDERED: NITROGLYCERIN SL 0.4 MG TABLET SL PRN (19:12)
[2020-02-05] MEDS ORDERED: ENOXAPARIN 100 MG/ML SYRINGE SUBCUT STA (19:12)
[2020-02-05] MEDS ORDERED: MORPHINE 4 MG/1 ML VIAL IV STA (19:12)
[2020-02-05] MEDS ORDERED: ASPIRIN 325 MG TABLET PO STA (19:12)
[2020-02-05 19:27] LABS: Basophils # 0.1 10*3/uL (0.0-0.2); Basophils % 0.6 % (0.0-0.8); Eosinophils # 0.3 10*3/uL (0.0-0.87); Eosinophils % 2.2 % (0.00-10.9); Hematocrit 45.8 VOL% (42.0-52.0); Hemoglobin 16.6 GM/DL (14.0-18.0); Immature Granulocytes Absolute 0.11 #; Lymphocytes # 3.1 10*3/uL (1.4-4.0); Lymphocytes % 27.2 % (21.2-54.2); Mean Corpuscular HGB Conc 36.2 GM/DL (32-36); Mean Corpuscular Volume 86.3 FL (87-102); Mean Platelet Volume 8.6 FL (9.6-12.0); Monocytes % 9.1 % (1.7-12.7); Neutrophils % 59.9 % (38.7-73.9); Platelet Count 416 T/CUMM (130-400); Red Blood Count 5.31 MC/CUMM (3.8-5.5); Red Cell Distribution Width 13.2 % (9.3-17.3); White Blood Count 11.5 T/CUMM (4-12)
[2020-02-05 19:39] LABS: Albumin 4.2 G/DL (3.4-5.0); Bilirubin,Total 4.4 MG/DL (0.2-1.0); Calcium 13.1 MG/DL (8.5-10.1); Osmolality,Calculated 262.8 MOS/KG (273-304); Total Protein 8.4 G/DL (6.4-8.3)
[2020-02-05] MEDS ORDERED: ONDANSETRON 4 MG/2 ML VIAL IV ONE (19:47)
[2020-02-05] MEDS ORDERED: ALUM/MAG/SIMETH/LIDO VISC 1:1 30 ML BOTTLE PO STA (19:47)
[2020-02-05] MEDS ORDERED: ACETAMINOPHEN 325 MG TABLET PO PRN (20:08)
[2020-02-05] MEDS ORDERED: ONDANSETRON 4 MG/2 ML VIAL IV PRN (20:08)
[2020-02-05] MEDS ORDERED: LACTATED RINGERS 1,000 ML IV SCH (20:30)
[2020-02-05] MEDS ORDERED: ENOXAPARIN 40 MG/0.4 ML SYRINGE SUBCUT SCH (21:00)
[2020-02-05] MEDS ORDERED: DOCUSATE SODIUM 100 MG CAPSULE PO SCH (21:00)
[2020-02-06 00:55] LABS: Basophils # 0.1 10*3/uL (0.0-0.2); Basophils % 0.6 % (0.0-0.8); Eosinophils # 0.2 10*3/uL (0.0-0.87); Eosinophils % 1.7 % (0.00-10.9); Hematocrit 44.4 VOL% (42.0-52.0); Hemoglobin 15.9 GM/DL (14.0-18.0); Lymphocytes # 2.9 10*3/uL (1.4-4.0); Lymphocytes % 28.4 % (21.2-54.2); Mean Corpuscular HGB Conc 35.8 GM/DL (32-36); Mean Corpuscular Volume 86.2 FL (87-102); Mean Platelet Volume 8.4 FL (9.6-12.0); Monocytes % 10.7 % (1.7-12.7); Neutrophils % 57.6 % (38.7-73.9); Platelet Count 363 T/CUMM (130-400); Red Blood Count 5.15 MC/CUMM (3.8-5.5); Red Cell Distribution Width 13.2 % (9.3-17.3); White Blood Count 10.1 T/CUMM (4-12)
[2020-02-06 01:21] LABS: Albumin 4.1 G/DL (3.4-5.0); Bilirubin,Total 4.3 MG/DL (0.2-1.0); Calcium 12.2 MG/DL (8.5-10.1); Osmolality,Calculated 263.8 MOS/KG (273-304); Total Protein 7.9 G/DL (6.4-8.3)
[2020-02-06] MEDS ORDERED: ONDANSETRON 4 MG TABLET PO PRN (08:13)
[2020-02-06] MEDS ORDERED: LORazepam 0.5 MG TABLET PO PRN (08:13)
[2020-02-06] MEDS ORDERED: busPIRone 5 MG TABLET PO SCH ×2 (09:00)
[2020-02-06] MEDS ORDERED: SODIUM CHLOR 0.9% KCL 20 MEQ 20 MEQ/1,000 ML BAG IV SCH (09:00)
[2020-02-06] MEDS ORDERED: buPROPion XL 150 MG TABLET PO SCH (09:00)
[2020-02-06] MEDS ORDERED: MULTIVITAMIN PO SCH (09:00)
[2020-02-06] MEDS ORDERED: TRIAMTERENE/HCTZ 75-50 MG TABLET PO SCH (09:00)
[2020-02-06] MEDS ORDERED: PANTOPRAZOLE 40 MG TABLET PO SCH ×2 (09:00)
[2020-02-06] MEDS ORDERED: NON-FORMULARY MEDICATION PO SCH (09:00)
[2020-02-06] MEDS ORDERED: POTASSIUM CHLORIDE 20 MEQ TABLET PO SCH (09:00)
[2020-02-06 11:34] VITALS: BP 119/90
== END 2020-02-06 12:20 | disposition home or self-care (01) ==
LOC: N.ED 18:28 → N.EDINP 18:28 → N.5E 23:39
PROVIDERS: ADMIT Family Medicine; ATTEND Family Medicine

== ENCOUNTER 2020-03-29 19:47 | Inpatient (IN) ==
[2020-03-29] MEDS ORDERED: KETOROLAC 30 MG/1 ML VIAL IV STA (20:31)
[2020-03-29] MEDS ORDERED: ONDANSETRON 4 MG/2 ML VIAL IV ONE (20:31)
[2020-03-29] MEDS ORDERED: LACTATED RINGERS 1,000 ML IV ONE (20:31)
[2020-03-29 21:25] LABS: Basophils # 0.1 10*3/uL (0.0-0.2); Basophils % 0.4 % (0.0-0.8); Eosinophils # 0.1 10*3/uL (0.0-0.87); Eosinophils % 0.8 % (0.00-10.9); Hematocrit 45.5 VOL% (42.0-52.0); Immature Granulocytes % 0.5 %; Immature Granulocytes Absolute 0.09 #; Lymphocytes # 1.4 10*3/uL (1.4-4.0); Lymphocytes % 8.5 % (21.2-54.2); Mean Corpuscular HGB Conc 37.4 GM/DL (32-36); Mean Corpuscular Volume 84.4 FL (87-102); Mean Platelet Volume 8.5 FL (9.6-12.0); Monocytes % 8.3 % (1.7-12.7); Neutrophils % 81.5 % (38.7-73.9); Platelet Count 438 T/CUMM (130-400); Red Blood Count 5.39 MC/CUMM (3.8-5.5); Red Cell Distribution Width 13.7 % (9.3-17.3); White Blood Count 16.6 T/CUMM (4-12)
[2020-03-29 21:30] LABS: Albumin 4.5 G/DL (3.4-5.0); Bilirubin,Total 4.4 MG/DL (0.2-1.0); Calcium 11.5 MG/DL (8.5-10.1); Osmolality,Calculated 270.2 MOS/KG (273-304); Total Protein 8.9 G/DL (6.4-8.3)
[2020-03-29] MEDS ORDERED: diphenhydrAMINE 50 MG/1 ML VIAL IV STA (21:31)
[2020-03-29 22:54] LABS: Bacteria,Urine Occasional /HPF (Few); Bilirubin,Urine Negative (Negative); Blood, Urine Negative (Negative); Glucose,Urine (UA) Negative (Negative); Hyaline Casts,Urine 3 /LPF (0-3); Ketones,Urine Negative (Negative); Mucus,Urine Occasional /LPF (Occasional); Nitrite,Urine Negative (Negative); Protein,Urine Negative; RBC,Urine 1 /HPF (0-4); Sperm,Urine Few /HPF (Negative); Squamous Epithelial Cell,Urine Occasional /HPF (0-10); Urine Appearance CLEAR (Clear); Urine Color Yellow (Yellow); Urine Specific Gravity 1.013 (1.001-1.035); Urine Urobilinogen < 2.0 EU/DL (0.2-1.0); WBC,Urine 1 /HPF (0-6)
[2020-03-30] MEDS ORDERED: MORPHINE 4 MG/1 ML VIAL IV STA (00:06)
[2020-03-30] MEDS ORDERED: POTASSIUM CHLORIDE 20 MEQ TABLET PO STA (00:06)
[2020-03-30] MEDS ORDERED: PIPERACILLIN/TAZOBACTAM 3,375 MG in SODIUM CHLORIDE 0.9% 100 ML IV STA (00:13)
[2020-03-30] MEDS ORDERED: ACETAMINOPHEN 325 MG TABLET PO PRN (00:26)
[2020-03-30] MEDS ORDERED: PANTOPRAZOLE 40 MG VIAL IV ONE (01:23)
[2020-03-30] MEDS: LACTATED RINGERS 1,000 ML IV SCH ×2 (03:04→08:43)
[2020-03-30] MEDS: PIPERACILLIN/TAZOBACTAM 3,375 MG in SODIUM CHLORIDE 0.9% 100 ML IV SCH ×2 (08:43→16:30)
[2020-03-30] MEDS: PANTOPRAZOLE 40 MG VIAL IV SCH (08:44)
[2020-03-30] MEDS: POTASSIUM CHLORIDE RIDER 10 MEQ in PREMIX 1 EACH IV PRN ×4 (12:16→16:35)
[2020-03-31] MEDS: PIPERACILLIN/TAZOBACTAM 3,375 MG in SODIUM CHLORIDE 0.9% 100 ML IV SCH ×3 (00:15→16:46)
[2020-03-31] MEDS: LACTATED RINGERS 1,000 ML IV SCH ×3 (04:25→16:46)
[2020-03-31 05:23] LABS: Basophils % 0.6 % (0.0-0.8); Eosinophils # 0.2 10*3/uL (0.0-0.87); Eosinophils % 3.1 % (0.00-10.9); Hematocrit 43.9 VOL% (42.0-52.0); Hemoglobin 15.3 GM/DL (14.0-18.0); Immature Granulocytes % 0.3 %; Immature Granulocytes Absolute 0.02 #; Lymphocytes # 1.6 10*3/uL (1.4-4.0); Lymphocytes % 25.7 % (21.2-54.2); Mean Corpuscular HGB Conc 34.9 GM/DL (32-36); Mean Corpuscular Volume 90.1 FL (87-102); Mean Platelet Volume 8.9 FL (9.6-12.0); Monocytes % 18.8 % (1.7-12.7); Neutrophils % 51.5 % (38.7-73.9); Platelet Count 389 T/CUMM (130-400); Red Blood Count 4.87 MC/CUMM (3.8-5.5); Red Cell Distribution Width 13.8 % (9.3-17.3); White Blood Count 6.4 T/CUMM (4-12)
[2020-03-31 05:41] LABS: Albumin 3.7 G/DL (3.4-5.0); Bilirubin,Total 6.4 MG/DL (0.2-1.0); Calcium 9.6 MG/DL (8.5-10.1); Osmolality,Calculated 276.8 MOS/KG (273-304); Total Protein 7.9 G/DL (6.4-8.3)
[2020-03-31 06:03] LABS: Anisocytosis Slight; Band Neutrophils 31 % (0-10); Eosinophils 4 % (0-10); Lymphocytes 21 % (20-55); Nucleated Red Blood Cells 2 (0-5); Platelet Estimate Normal; Segmented Neutrophils 23 % (50-85); Total Cells Counted 100
[2020-03-31] MEDS: PANTOPRAZOLE 40 MG VIAL IV SCH (09:30)
[2020-03-31] MEDS: ONDANSETRON 4 MG/2 ML VIAL IV PRN (22:02)
[2020-04-01] MEDS: PIPERACILLIN/TAZOBACTAM 3,375 MG in SODIUM CHLORIDE 0.9% 100 ML IV SCH ×3 (00:24→17:30)
[2020-04-01] MEDS: LACTATED RINGERS 1,000 ML IV SCH ×2 (01:56→09:30)
[2020-04-01] MEDS: ONDANSETRON 4 MG/2 ML VIAL IV PRN (03:41)
[2020-04-01] MEDS: PANTOPRAZOLE 40 MG VIAL IV SCH (09:06)
[2020-04-01] MEDS ORDERED: TAMSULOSIN 0.4 MG CAPSULE PO SCH (21:00)
[2020-04-02] MEDS: PIPERACILLIN/TAZOBACTAM 3,375 MG in SODIUM CHLORIDE 0.9% 100 ML IV SCH ×2 (01:55→08:22)
[2020-04-02] MEDS: LACTATED RINGERS 1,000 ML IV SCH ×3 (01:59→08:22)
[2020-04-02] MEDS: PANTOPRAZOLE 40 MG VIAL IV SCH (08:22)
[2020-04-02 11:26] VITALS: BP 121/76
== END 2020-04-02 14:06 | disposition home or self-care (01) | DRG 390 ==
LOC: N.ED 19:47 → N.EDINP 03-30 00:55 → N.3E 03-30 01:59
PROVIDERS: ADMIT Surgery; ATTEND Surgery

== ENCOUNTER 2020-05-27 17:27 | Inpatient (IN) ==
[2020-05-27 20:54] LABS: Basophils # 0.1 10*3/uL (0.0-0.2); Basophils % 0.3 % (0.0-0.8); Eosinophils % 0.2 % (0.00-10.9); Hematocrit 47.9 VOL% (42.0-52.0); Hemoglobin 16.9 GM/DL (14.0-18.0); Immature Granulocytes % 0.5 %; Immature Granulocytes Absolute 0.07 #; Lymphocytes # 1.3 10*3/uL (1.4-4.0); Lymphocytes % 8.7 % (21.2-54.2); Mean Corpuscular HGB Conc 35.3 GM/DL (32-36); Mean Corpuscular Volume 87.1 FL (87-102); Mean Platelet Volume 8.6 FL (9.6-12.0); Monocytes % 6.9 % (1.7-12.7); Neutrophils % 83.4 % (38.7-73.9); Platelet Count 450 T/CUMM (130-400); Red Cell Distribution Width 14.2 % (9.3-17.3); White Blood Count 14.5 T/CUMM (4-12)
[2020-05-27] MEDS ORDERED: METOCLOPRAMIDE 10 MG/2 ML VIAL IV STA (21:04)
[2020-05-27] MEDS ORDERED: ONDANSETRON 4 MG/2 ML VIAL IV STA (21:04)
[2020-05-27] MEDS ORDERED: PANTOPRAZOLE 40 MG VIAL IV STA (21:04)
[2020-05-27] MEDS ORDERED: HYDROmorphone 2 MG/1 ML VIAL IV STA (21:04)
[2020-05-27] MEDS ORDERED: SODIUM CHLORIDE 0.9% 1,000 ML IV STA (21:04)
[2020-05-27 21:12] LABS: Albumin 4.7 G/DL (3.4-5.0); Calcium 12.1 MG/DL (8.5-10.1); Total Protein 8.8 G/DL (6.4-8.3)
[2020-05-27 21:23] LABS: Platelet Estimate Increased
[2020-05-28] MEDS ORDERED: HYDROmorphone 2 MG/1 ML VIAL IV PRN (01:07)
[2020-05-28] MEDS ORDERED: ONDANSETRON 4 MG/2 ML VIAL IV PRN (01:07)
[2020-05-28] MEDS ORDERED: ACETAMINOPHEN 325 MG TABLET PO PRN (01:07)
[2020-05-28] MEDS: SODIUM CHLORIDE 0.9% 1,000 ML IV SCH ×3 (02:01→19:00)
[2020-05-28] MEDS: PIPERACILLIN/TAZOBACTAM 3,375 MG in SODIUM CHLORIDE 0.9% 100 ML IV SCH ×3 (02:18→19:08)
[2020-05-28 06:13] LABS: Basophils % 0.3 % (0.0-0.8); Eosinophils % 0.3 % (0.00-10.9); Hematocrit 46.1 VOL% (42.0-52.0); Immature Granulocytes % 0.3 %; Immature Granulocytes Absolute 0.02 #; Lymphocytes # 1.4 10*3/uL (1.4-4.0); Lymphocytes % 17.9 % (21.2-54.2); Mean Corpuscular HGB Conc 34.7 GM/DL (32-36); Mean Corpuscular Volume 89.3 FL (87-102); Mean Platelet Volume 8.8 FL (9.6-12.0); Monocytes % 12.5 % (1.7-12.7); Neutrophils % 68.7 % (38.7-73.9); Platelet Count 394 T/CUMM (130-400); Red Blood Count 5.16 MC/CUMM (3.8-5.5); Red Cell Distribution Width 14.4 % (9.3-17.3); White Blood Count 7.7 T/CUMM (4-12)
[2020-05-28 06:47] LABS: Albumin 3.7 G/DL (3.4-5.0); Bilirubin,Total 6.7 MG/DL (0.2-1.0); Calcium 10.4 MG/DL (8.5-10.1); Osmolality,Calculated 279.7 MOS/KG (273-304); Total Protein 7.8 G/DL (6.4-8.3)
[2020-05-28 07:38] LABS: Anisocytosis 1+; Band Neutrophils 51 % (0-10); Lymphocytes 23 % (20-55); Metamyelocytes 4 %; Platelet Estimate Normal; Segmented Neutrophils 10 % (50-85); Total Cells Counted 100
[2020-05-28] MEDS ORDERED: LORazepam 0.5 MG TABLET PO PRN (08:57)
[2020-05-28] MEDS ORDERED: COLCHICINE 0.6 MG CAPSULE PO PRN (08:57)
[2020-05-28] MEDS ORDERED: ATOMOXETINE 40 MG PO SCH (09:00)
[2020-05-28] MEDS: PANTOPRAZOLE 40 MG VIAL IV SCH (09:36)
[2020-05-28] MEDS: buPROPion XL 150 MG TABLET PO SCH (12:27)
[2020-05-28] MEDS: busPIRone 15 MG TABLET PO SCH ×2 (12:27→20:42)
[2020-05-28 12:48] LABS: Bilirubin,Urine Negative (Negative); Blood, Urine Negative (Negative); Glucose,Urine (UA) Negative (Negative); Ketones,Urine Negative (Negative); Nitrite,Urine Negative (Negative); Protein,Urine Negative; RBC,Urine 2 /HPF (0-4); Urine Appearance CLEAR (Clear); Urine Color Yellow (Yellow); Urine Specific Gravity 1.044 (1.001-1.035); Urine Urobilinogen < 2.0 EU/DL (0.2-1.0); WBC,Urine 1 /HPF (0-6)
[2020-05-29] MEDS: PIPERACILLIN/TAZOBACTAM 3,375 MG in SODIUM CHLORIDE 0.9% 100 ML IV SCH ×2 (01:03→12:17)
[2020-05-29] MEDS: SODIUM CHLORIDE 0.9% 1,000 ML IV SCH ×2 (01:13→09:11)
[2020-05-29 05:33] LABS: Basophils % 0.4 % (0.0-0.8); Eosinophils # 0.2 10*3/uL (0.0-0.87); Eosinophils % 2.6 % (0.00-10.9); Hematocrit 42.8 VOL% (42.0-52.0); Hemoglobin 15.2 GM/DL (14.0-18.0); Immature Granulocytes % 0.3 %; Immature Granulocytes Absolute 0.02 #; Lymphocytes # 1.1 10*3/uL (1.4-4.0); Lymphocytes % 13.7 % (21.2-54.2); Mean Corpuscular HGB Conc 35.5 GM/DL (32-36); Mean Corpuscular Volume 88.2 FL (87-102); Mean Platelet Volume 9.1 FL (9.6-12.0); Monocytes % 16.2 % (1.7-12.7); Neutrophils % 66.8 % (38.7-73.9); Platelet Count 354 T/CUMM (130-400); Red Blood Count 4.85 MC/CUMM (3.8-5.5); Red Cell Distribution Width 13.9 % (9.3-17.3); White Blood Count 7.6 T/CUMM (4-12)
[2020-05-29 06:06] LABS: Calcium 9.8 MG/DL (8.5-10.1); Osmolality,Calculated 276.1 MOS/KG (273-304)
[2020-05-29 06:10] LABS: Albumin 3.8 G/DL (3.4-5.0); Bilirubin,Direct 0.35 MG/DL (0.0-0.20); Bilirubin,Indirect 5.7 MG/DL (0.0-1.0); Total Protein 7.9 G/DL (6.4-8.3)
[2020-05-29 08:14] LABS: Anisocytosis 1+; Band Neutrophils 16 % (0-10); Eosinophils 4 % (0-10); Lymphocytes 13 % (20-55); Platelet Estimate Normal; Segmented Neutrophils 51 % (50-85); Total Cells Counted 100
[2020-05-29 08:15] LABS: Hypochromasia 2+; Macrocytosis 1+; Reactive Lymphocytes 1+
[2020-05-29] MEDS ORDERED: POTASSIUM CHLORIDE 20 MEQ TABLET PO ONE (08:51)
[2020-05-29] MEDS ORDERED: METOPROLOL TARTRATE 25 MG TABLET PO ONE (08:51)
[2020-05-29] MEDS ORDERED: LOPERAMIDE 2 MG CAPSULE PO ONE (08:52)
[2020-05-29] MEDS ORDERED: POTASSIUM CHLORIDE RIDER 10 MEQ in PREMIX 1 EACH IV ONE (09:00)
[2020-05-29] MEDS: buPROPion XL 150 MG TABLET PO SCH (09:10)
[2020-05-29] MEDS: PANTOPRAZOLE 40 MG VIAL IV SCH (09:10)
[2020-05-29] MEDS: busPIRone 15 MG TABLET PO SCH (09:11)
[2020-05-29 11:58] VITALS: BP 113/74
== END 2020-05-29 16:13 | disposition home or self-care (01) | DRG 390 ==
LOC: N.ED 17:27 → N.EDINP 23:16 → N.3E 23:36
PROVIDERS: ADMIT Surgery; ATTEND Family Medicine

== ENCOUNTER 2020-06-16 07:28 | Observation (INO) ==
[2020-06-16] MEDS ORDERED: SODIUM CHLORIDE 0.9% 1,000 ML IV STA ×2 (07:51→11:31)
[2020-06-16] MEDS ORDERED: ONDANSETRON 4 MG/2 ML VIAL IV STA (07:51)
[2020-06-16] MEDS ORDERED: LOPERAMIDE 2 MG CAPSULE PO STA (07:51)
[2020-06-16 08:31] LABS: Basophils # 0.1 10*3/uL (0.0-0.2); Basophils % 0.4 % (0.0-0.8); Eosinophils # 0.1 10*3/uL (0.0-0.87); Eosinophils % 0.4 % (0.00-10.9); Hematocrit 51.6 VOL% (42.0-52.0); Hemoglobin 18.2 GM/DL (14.0-18.0); Immature Granulocytes % 0.7 %; Immature Granulocytes Absolute 0.13 #; Lymphocytes # 0.9 10*3/uL (1.4-4.0); Lymphocytes % 4.7 % (21.2-54.2); Mean Corpuscular HGB Conc 35.3 GM/DL (32-36); Mean Corpuscular Volume 88.1 FL (87-102); Mean Platelet Volume 8.6 FL (9.6-12.0); Monocytes % 6.7 % (1.7-12.7); Neutrophils % 87.1 % (38.7-73.9); Platelet Count 493 T/CUMM (130-400); Red Blood Count 5.86 MC/CUMM (3.8-5.5); Red Cell Distribution Width 13.8 % (9.3-17.3); White Blood Count 19.9 T/CUMM (4-12)
[2020-06-16 08:50] LABS: Lymphocytes 3 % (20-55); Platelet Estimate Adequate; Segmented Neutrophils 93 % (50-85); Total Cells Counted 100
[2020-06-16 08:51] LABS: Macrocytosis Slight
[2020-06-16 08:59] LABS: Albumin 5.3 G/DL (3.4-5.0); Bilirubin,Total 4.1 MG/DL (0.2-1.0); Calcium 11.6 MG/DL (8.5-10.1); Osmolality,Calculated 267.5 MOS/KG (273-304); Total Protein 10.4 G/DL (6.4-8.3)
[2020-06-16] MEDS ORDERED: ACETAMINOPHEN 325 MG TABLET PO PRN (10:58)
[2020-06-16] MEDS ORDERED: ONDANSETRON 4 MG/2 ML VIAL IV PRN (10:58)
[2020-06-16] MEDS: SODIUM CHLORIDE 0.9% 1,000 ML IV SCH ×2 (13:08→21:38)
[2020-06-16] MEDS: ENOXAPARIN 30 MG/0.3 ML SYRINGE SUBCUT SCH (19:24)
[2020-06-16] MEDS: busPIRone 15 MG TABLET PO SCH (21:38)
[2020-06-16] MEDS: FAMOTIDINE 20 MG TABLET PO SCH (21:38)
[2020-06-16] MEDS: DOCUSATE SODIUM 100 MG CAPSULE PO SCH ×2 (21:38→21:40)
[2020-06-16] MEDS: METOPROLOL TARTRATE 25 MG TABLET PO SCH (21:39)
[2020-06-17 05:56] LABS: Calcium 8.4 MG/DL (8.5-10.1); Osmolality,Calculated 280.4 MOS/KG (273-304); Total Protein 6.4 G/DL (6.4-8.3)
[2020-06-17] MEDS: SODIUM CHLORIDE 0.9% 1,000 ML IV SCH (06:06)
[2020-06-17 06:48] LABS: Basophils # 0.1 10*3/uL (0.0-0.2); Basophils % 0.7 % (0.0-0.8); Eosinophils # 0.2 10*3/uL (0.0-0.87); Eosinophils % 2.9 % (0.00-10.9); Immature Granulocytes % 0.4 %; Immature Granulocytes Absolute 0.03 #; Lymphocytes % 27.9 % (21.2-54.2); Mean Corpuscular HGB Conc 34.7 GM/DL (32-36); Mean Corpuscular Volume 90.3 FL (87-102); Mean Platelet Volume 8.6 FL (9.6-12.0); Monocytes % 10.6 % (1.7-12.7); Neutrophils % 57.5 % (38.7-73.9); Red Cell Distribution Width 13.8 % (9.3-17.3)
[2020-06-17 06:49] LABS: Hemoglobin 13.2 GM/DL (14.0-18.0); Red Blood Count 4.21 MC/CUMM (3.8-5.5); White Blood Count 7.2 T/CUMM (4-12)
[2020-06-17 06:50] LABS: Platelet Count 309 T/CUMM (130-400)
[2020-06-17] MEDS: FAMOTIDINE 20 MG TABLET PO SCH (09:02)
[2020-06-17] MEDS: busPIRone 15 MG TABLET PO SCH (09:02)
[2020-06-17] MEDS: METOPROLOL TARTRATE 25 MG TABLET PO SCH (09:08)
[2020-06-17] MEDS: DOCUSATE SODIUM 100 MG CAPSULE PO SCH (09:08)
[2020-06-17 11:47] VITALS: BP 107/68
[2020-06-17] MEDS: ENOXAPARIN 30 MG/0.3 ML SYRINGE SUBCUT SCH (12:04)
== END 2020-06-17 15:20 | disposition home or self-care (01) ==
LOC: N.ED 07:28 → N.EDINP 07:28 → N.3E 12:48
PROVIDERS: ADMIT Family Medicine; ATTEND Family Medicine

== ENCOUNTER 2020-07-06 08:25 | Observation (INO) ==
[2020-07-06] MEDS ORDERED: MORPHINE 4 MG/1 ML VIAL IV ONE (08:44)
[2020-07-06] MEDS ORDERED: SODIUM CHLORIDE 0.9% 1,000 ML IV STA ×2 (08:44→10:00)
[2020-07-06] MEDS ORDERED: ONDANSETRON 4 MG/2 ML VIAL IV ONE (08:45)
[2020-07-06 09:20] LABS: Basophils # 0.2 10*3/uL (0.0-0.2); Basophils % 0.8 % (0.0-0.8); Eosinophils # 0.3 10*3/uL (0.0-0.87); Eosinophils % 1.4 % (0.00-10.9); Hematocrit 51.9 VOL% (42.0-52.0); Hemoglobin 18.3 GM/DL (14.0-18.0); Immature Granulocytes % 1.5 %; Immature Granulocytes Absolute 0.28 #; Lymphocytes # 2.2 10*3/uL (1.4-4.0); Lymphocytes % 11.8 % (21.2-54.2); Mean Corpuscular HGB Conc 35.3 GM/DL (32-36); Mean Corpuscular Volume 86.8 FL (87-102); Mean Platelet Volume 8.4 FL (9.6-12.0); Monocytes % 5.5 % (1.7-12.7); Platelet Count 564 T/CUMM (130-400); Red Blood Count 5.98 MC/CUMM (3.8-5.5); White Blood Count 18.6 T/CUMM (4-12)
[2020-07-06 09:32] LABS: PT Patient Result 11.1 SECS (9.8-11.9)
[2020-07-06 09:38] LABS: Albumin 5.2 G/DL (3.4-5.0); Bilirubin,Total 1.7 MG/DL (0.2-1.0); Osmolality,Calculated 266.4 MOS/KG (273-304); Potassium 3.6 MMOL/L (3.5-5.1); Total Protein 10.3 G/DL (6.4-8.3)
[2020-07-06 10:45] LABS: Bacteria,Urine Occasional /HPF (Few); Bilirubin,Urine Negative (Negative); Blood, Urine Small mg/dL (Negative); Glucose,Urine (UA) Negative (Negative); Hyaline Casts,Urine 14 /LPF (0-3); Ketones,Urine Negative (Negative); Mucus,Urine Occasional /LPF (Occasional); Nitrite,Urine Negative (Negative); Protein,Urine 30 MG/DL; RBC,Urine 1 /HPF (0-4); Squamous Epithelial Cell,Urine Occasional /HPF (0-10); Urine Appearance CLEAR (Clear); Urine Color Yellow (Yellow); Urine Specific Gravity 1.016 (1.001-1.035); Urine Urobilinogen < 2.0 EU/DL (0.2-1.0); WBC,Urine 3 /HPF (0-6)
[2020-07-06] MEDS ORDERED: HYDROmorphone 2 MG/1 ML VIAL IV PRN (11:19)
[2020-07-06] MEDS ORDERED: ONDANSETRON 4 MG/2 ML VIAL IV PRN (11:19)
[2020-07-06] MEDS ORDERED: PROMETHAZINE 25 MG/1 ML VIAL IM PRN (11:19)
[2020-07-06] MEDS ORDERED: ACETAMINOPHEN 325 MG TABLET PO PRN (11:19)
[2020-07-06] MEDS: SODIUM CHLORIDE 0.9% 1,000 ML IV SCH ×2 (14:51→23:29)
[2020-07-06] MEDS ORDERED: LORazepam 0.5 MG TABLET PO PRN (17:35)
[2020-07-06] MEDS: busPIRone 15 MG TABLET PO SCH (20:42)
[2020-07-06] MEDS: DOCUSATE SODIUM 100 MG CAPSULE PO SCH (20:42)
[2020-07-06] MEDS: METOPROLOL TARTRATE 25 MG TABLET PO SCH (20:42)
[2020-07-06] MEDS: ATOMOXETINE 40 MG PO SCH (20:46)
[2020-07-07 06:38] LABS: Basophils # 0.1 10*3/uL (0.0-0.2); Basophils % 0.6 % (0.0-0.8); Eosinophils # 0.4 10*3/uL (0.0-0.87); Eosinophils % 4.8 % (0.00-10.9); Hematocrit 37.3 VOL% (42.0-52.0); Hemoglobin 12.8 GM/DL (14.0-18.0); Immature Granulocytes % 1.4 %; Immature Granulocytes Absolute 0.11 #; Lymphocytes # 2.3 10*3/uL (1.4-4.0); Lymphocytes % 28.9 % (21.2-54.2); Mean Corpuscular HGB Conc 34.3 GM/DL (32-36); Mean Corpuscular Volume 89.7 FL (87-102); Mean Platelet Volume 8.6 FL (9.6-12.0); Monocytes % 9.3 % (1.7-12.7); Platelet Count 355 T/CUMM (130-400); Red Blood Count 4.16 MC/CUMM (3.8-5.5); Red Cell Distribution Width 13.8 % (9.3-17.3)
[2020-07-07] MEDS: SODIUM CHLORIDE 0.9% 1,000 ML IV SCH ×2 (06:52→13:59)
[2020-07-07 06:57] LABS: Albumin 2.8 G/DL (3.4-5.0); Bilirubin,Total 1.7 MG/DL (0.2-1.0); Calcium 9.2 MG/DL (8.5-10.1); Osmolality,Calculated 272.7 MOS/KG (273-304); Potassium 3.8 MMOL/L (3.5-5.1); Total Protein 6.1 G/DL (6.4-8.3)
[2020-07-07] MEDS: buPROPion XL 150 MG TABLET PO SCH (09:20)
[2020-07-07] MEDS: PANTOPRAZOLE 40 MG TABLET PO SCH (09:20)
[2020-07-07] MEDS: busPIRone 15 MG TABLET PO SCH ×2 (09:20→20:53)
[2020-07-07] MEDS: DOCUSATE SODIUM 100 MG CAPSULE PO SCH ×2 (09:21→20:56)
[2020-07-07] MEDS: ATOMOXETINE 40 MG PO SCH ×2 (09:21→20:54)
[2020-07-07] MEDS: METOPROLOL TARTRATE 25 MG TABLET PO SCH ×2 (09:21→20:53)
[2020-07-08] MEDS: SODIUM CHLORIDE 0.9% 1,000 ML IV SCH ×4 (00:06→23:50)
[2020-07-08 06:14] LABS: Basophils % 0.6 % (0.0-0.8); Eosinophils # 0.2 10*3/uL (0.0-0.87); Eosinophils % 3.3 % (0.00-10.9); Hemoglobin 11.8 GM/DL (14.0-18.0); Immature Granulocytes % 1.3 %; Immature Granulocytes Absolute 0.08 #; Lymphocytes # 1.8 10*3/uL (1.4-4.0); Lymphocytes % 28.7 % (21.2-54.2); Mean Corpuscular HGB Conc 34.7 GM/DL (32-36); Mean Corpuscular Volume 89.7 FL (87-102); Mean Platelet Volume 8.4 FL (9.6-12.0); Monocytes % 8.9 % (1.7-12.7); Neutrophils % 57.2 % (38.7-73.9); Platelet Count 328 T/CUMM (130-400); Red Blood Count 3.79 MC/CUMM (3.8-5.5); Red Cell Distribution Width 13.6 % (9.3-17.3); White Blood Count 6.4 T/CUMM (4-12)
[2020-07-08 06:34] LABS: Calcium 8.8 MG/DL (8.5-10.1); Osmolality,Calculated 279.1 MOS/KG (273-304); Potassium 3.4 MMOL/L (3.5-5.1)
[2020-07-08] MEDS ORDERED: SODIUM CHLORIDE 0.9% 1,000 ML IV SCH (07:00)
[2020-07-08] MEDS: METOPROLOL TARTRATE 25 MG TABLET PO SCH ×2 (09:15→23:23)
[2020-07-08] MEDS: DOCUSATE SODIUM 100 MG CAPSULE PO SCH ×2 (09:15→23:28)
[2020-07-08] MEDS: busPIRone 15 MG TABLET PO SCH ×2 (09:15→23:23)
[2020-07-08] MEDS: ATOMOXETINE 40 MG PO SCH ×2 (09:15→23:27)
[2020-07-08] MEDS: PANTOPRAZOLE 40 MG TABLET PO SCH (09:16)
[2020-07-08] MEDS: buPROPion XL 150 MG TABLET PO SCH (09:16)
[2020-07-08] MEDS ORDERED: propofoL 200 MG/20 ML VIAL IV ONE (14:19)
[2020-07-08] MEDS ORDERED: LIDOCAINE 2% 5 ML VIAL ONE (14:19)
[2020-07-08] MEDS ORDERED: PHENYLEPHRINE 1 MG/10 ML SYRINGE IV ONE (14:31)
[2020-07-08] MEDS ORDERED: ATROPINE 0.4 MG/1 ML VIAL ONE (14:36)
[2020-07-08] MEDS ORDERED: GLYCOPYRROLATE 0.4 MG/2 ML VIAL ONE (14:36)
[2020-07-08] MEDS ORDERED: MAGNESIUM CHLORIDE 64 MG TABLET PO ONE (15:00)
[2020-07-08] MEDS ORDERED: POTASSIUM CHLORIDE 20 MEQ TABLET PO ONE (15:00)
[2020-07-09] MEDS: METOPROLOL TARTRATE 25 MG TABLET PO SCH (08:22)
[2020-07-09] MEDS: buPROPion XL 150 MG TABLET PO SCH (08:22)
[2020-07-09] MEDS: PANTOPRAZOLE 40 MG TABLET PO SCH (08:23)
[2020-07-09] MEDS: busPIRone 15 MG TABLET PO SCH (08:23)
[2020-07-09] MEDS: DOCUSATE SODIUM 100 MG CAPSULE PO SCH (08:24)
[2020-07-09 08:30] VITALS: BP 104/78
[2020-07-09] MEDS: SODIUM CHLORIDE 0.9% 1,000 ML IV SCH (09:00)
[2020-07-09] MEDS: ATOMOXETINE 40 MG PO SCH (09:01)
== END 2020-07-09 09:22 | disposition home or self-care (01) ==
LOC: N.EDINP 08:25 → N.ED 08:25 → N.EDINP 13:02 → N.5E 13:28
PROVIDERS: ADMIT Family Medicine; ATTEND Family Medicine

== ENCOUNTER 2020-07-27 02:26 | Observation (INO) ==
[2020-07-27] MEDS ORDERED: ONDANSETRON 4 MG/2 ML VIAL IV STA (02:47)
[2020-07-27] MEDS ORDERED: SODIUM CHLORIDE 0.9% 1,000 ML IV STA (02:47)
[2020-07-27] MEDS ORDERED: PANTOPRAZOLE 40 MG VIAL IV STA (02:47)
[2020-07-27 04:16] LABS: Basophils # 0.1 10*3/uL (0.0-0.2); Basophils % 0.7 % (0.0-0.8); Eosinophils # 0.2 10*3/uL (0.0-0.87); Eosinophils % 1.4 % (0.00-10.9); Hematocrit 56.5 VOL% (42.0-52.0); Hemoglobin 19.6 GM/DL (14.0-18.0); Immature Granulocytes % 1.2 %; Immature Granulocytes Absolute 0.13 #; Lymphocytes # 1.6 10*3/uL (1.4-4.0); Lymphocytes % 14.7 % (21.2-54.2); Mean Corpuscular HGB Conc 34.7 GM/DL (32-36); Mean Corpuscular Volume 87.7 FL (87-102); Mean Platelet Volume 8.4 FL (9.6-12.0); Monocytes % 5.1 % (1.7-12.7); Neutrophils % 76.9 % (38.7-73.9); Platelet Count 487 T/CUMM (130-400); Red Blood Count 6.44 MC/CUMM (3.8-5.5); Red Cell Distribution Width 14.2 % (9.3-17.3); White Blood Count 11.1 T/CUMM (4-12)
[2020-07-27 04:37] LABS: Albumin 5.8 G/DL (3.4-5.0); Bilirubin,Total 5.3 MG/DL (0.2-1.0); Osmolality,Calculated 262.1 MOS/KG (273-304); Potassium 3.7 MMOL/L (3.5-5.1); Total Protein 11.5 G/DL (6.4-8.3)
[2020-07-27] MEDS ORDERED: ALUM/MAG/SIMETH/LIDO VISC 1:1 30 ML BOTTLE PO ONE (05:08)
[2020-07-27] MEDS ORDERED: ALUM/MAG/SIMETH/LIDO VISC 1:1 30 ML BOTTLE PO STA (05:08)
[2020-07-27] MEDS ORDERED: ACETAMINOPHEN 325 MG TABLET PO PRN (05:12)
[2020-07-27] MEDS ORDERED: ONDANSETRON 4 MG/2 ML VIAL IV PRN (05:12)
[2020-07-27] MEDS ORDERED: MORPHINE 4 MG/1 ML VIAL IV PRN (05:12)
[2020-07-27] MEDS: DEXTROSE 5% NACL 0.9% 1,000 ML IV SCH ×2 (06:46→14:53)
[2020-07-27] MEDS: PANTOPRAZOLE 40 MG VIAL IV SCH (09:00)
[2020-07-27] MEDS ORDERED: PANTOPRAZOLE 40 MG TABLET PO ONE (13:00)
[2020-07-28] MEDS: DEXTROSE 5% NACL 0.9% 1,000 ML IV SCH ×3 (00:33→18:08)
[2020-07-28 08:04] LABS: Basophils # 0.1 10*3/uL (0.0-0.2); Basophils % 0.5 % (0.0-0.8); Eosinophils # 0.3 10*3/uL (0.0-0.87); Eosinophils % 3.2 % (0.00-10.9); Hemoglobin 13.5 GM/DL (14.0-18.0); Immature Granulocytes % 0.5 %; Immature Granulocytes Absolute 0.05 #; Lymphocytes # 1.5 10*3/uL (1.4-4.0); Lymphocytes % 15.5 % (21.2-54.2); Mean Corpuscular HGB Conc 33.8 GM/DL (32-36); Mean Corpuscular Volume 92.8 FL (87-102); Mean Platelet Volume 8.4 FL (9.6-12.0); Monocytes % 7.3 % (1.7-12.7); Platelet Count 282 T/CUMM (130-400); Red Blood Count 4.31 MC/CUMM (3.8-5.5); Red Cell Distribution Width 14.3 % (9.3-17.3); White Blood Count 9.4 T/CUMM (4-12)
[2020-07-28 08:40] LABS: Albumin 3.3 G/DL (3.4-5.0); Bilirubin,Total 3.5 MG/DL (0.2-1.0); Calcium 8.7 MG/DL (8.5-10.1); Osmolality,Calculated 277.4 MOS/KG (273-304); Potassium 3.8 MMOL/L (3.5-5.1); Total Protein 6.7 G/DL (6.4-8.3)
[2020-07-28] MEDS: PANTOPRAZOLE 40 MG VIAL IV SCH (09:32)
[2020-07-29] MEDS: PANTOPRAZOLE 40 MG VIAL IV SCH (10:27)
[2020-07-29 11:29] VITALS: BP 117/80
== END 2020-07-29 11:30 | disposition home or self-care (01) ==
LOC: N.ED 02:26 → N.EDINP 02:26 → N.3E 06:10
PROVIDERS: ADMIT Family Medicine; ATTEND Family Medicine

== ENCOUNTER 2021-03-22 10:15 | Observation (INO) ==
[2021-03-22] MEDS ORDERED: ONDANSETRON 4 MG/2 ML VIAL IV STA (10:48)
[2021-03-22] MEDS ORDERED: SODIUM CHLORIDE 0.9% 1,000 ML IV STA (10:48)
[2021-03-22 11:47] LABS: Basophils % 0.3 % (0.0-0.8); Eosinophils # 0.1 10*3/uL (0.0-0.87); Eosinophils % 0.9 % (0.00-10.9); Hematocrit 53.8 VOL% (42.0-52.0); Hemoglobin 18.7 GM/DL (14.0-18.0); Immature Granulocytes % 0.4 %; Immature Granulocytes Absolute 0.05 #; Lymphocytes # 2.1 10*3/uL (1.4-4.0); Lymphocytes % 18.2 % (21.2-54.2); Mean Corpuscular HGB Conc 34.8 GM/DL (32-36); Mean Corpuscular Volume 86.1 FL (87-102); Mean Platelet Volume 8.7 FL (9.6-12.0); Monocytes % 12.3 % (1.7-12.7); Neutrophils % 67.9 % (38.7-73.9); Platelet Count 425 T/CUMM (130-400); Red Blood Count 6.25 MC/CUMM (3.8-5.5); Red Cell Distribution Width 15.3 % (9.3-17.3); White Blood Count 11.6 T/CUMM (4-12)
[2021-03-22 12:04] LABS: Albumin 4.9 G/DL (3.4-5.0); Bilirubin,Total 3.5 MG/DL (0.20-1.00); Calcium 11.4 MG/DL (8.5-10.1); Osmolality,Calculated 273.2 MOS/KG (273-304); Potassium 3.1 MMOL/L (3.5-5.1); Total Protein 9.8 G/DL (6.4-8.2)
[2021-03-22] MEDS ORDERED: ONDANSETRON 4 MG/2 ML VIAL IV PRN (13:43)
[2021-03-22] MEDS ORDERED: ACETAMINOPHEN 325 MG TABLET PO PRN (13:43)
[2021-03-22] MEDS ORDERED: LORazepam 0.5 MG TABLET PO PRN (13:45)
[2021-03-22] MEDS: POTASSIUM CHLORIDE RIDER 10 MEQ/100 ML PREMIX IV SCH ×3 (14:40→21:01)
[2021-03-22] MEDS: SODIUM CHLORIDE 0.9% 1,000 ML IV SCH ×2 (14:41→22:45)
[2021-03-22] MEDS: DOCUSATE SODIUM 100 MG CAPSULE PO SCH (20:55)
[2021-03-22] MEDS: busPIRone 15 MG TABLET PO SCH (20:55)
[2021-03-23] MEDS: POTASSIUM CHLORIDE RIDER 10 MEQ/100 ML PREMIX IV SCH (00:45)
[2021-03-23 06:11] LABS: Basophils % 0.6 % (0.0-0.8); Eosinophils # 0.2 10*3/uL (0.0-0.87); Eosinophils % 3.4 % (0.00-10.9); Hematocrit 43.8 VOL% (42.0-52.0); Immature Granulocytes % 0.4 %; Immature Granulocytes Absolute 0.03 #; Lymphocytes % 29.3 % (21.2-54.2); Mean Corpuscular HGB Conc 34.9 GM/DL (32-36); Mean Corpuscular Volume 88.3 FL (87-102); Mean Platelet Volume 8.8 FL (9.6-12.0); Monocytes % 15.2 % (1.7-12.7); Neutrophils % 51.1 % (38.7-73.9); Red Cell Distribution Width 14.7 % (9.3-17.3)
[2021-03-23 06:15] LABS: Calcium 9.6 MG/DL (8.5-10.1); Osmolality,Calculated 277.7 MOS/KG (273-304)
[2021-03-23 06:32] LABS: Hemoglobin 15.3 GM/DL (14.0-18.0); Platelet Count 294 T/CUMM (130-400); Red Blood Count 4.96 MC/CUMM (3.8-5.5); White Blood Count 6.7 T/CUMM (4-12)
[2021-03-23] MEDS: SODIUM CHLORIDE 0.9% 1,000 ML IV SCH ×3 (06:59→23:00)
[2021-03-23] MEDS: buPROPion XL 150 MG TABLET PO SCH (07:54)
[2021-03-23] MEDS: PANTOPRAZOLE 40 MG TABLET PO SCH (07:54)
[2021-03-23] MEDS: busPIRone 15 MG TABLET PO SCH ×2 (07:54→20:48)
[2021-03-23] MEDS: DOCUSATE SODIUM 100 MG CAPSULE PO SCH ×2 (08:08→20:48)
[2021-03-24] MEDS: SODIUM CHLORIDE 0.9% 1,000 ML IV SCH (06:31)
[2021-03-24 08:10] VITALS: BP 118/82
[2021-03-24] MEDS: PANTOPRAZOLE 40 MG TABLET PO SCH (09:21)
[2021-03-24] MEDS: busPIRone 15 MG TABLET PO SCH (09:21)
[2021-03-24] MEDS: buPROPion XL 150 MG TABLET PO SCH (09:21)
== END 2021-03-24 10:47 | disposition home or self-care (01) ==
LOC: N.ED 10:15 → N.EDINP 10:15 → N.5E 15:11
PROVIDERS: ADMIT Family Medicine; ATTEND Family Medicine